=== PATIENT | male | born 1965 | race Caucasian/White ===

== ENCOUNTER 2020-09-03 12:52 | Outpatient (CLI) | payer BC, SELFPAY ==
--- NOTE | ~2020-09-03 | XR_ITS ---
EXAMINATION: XR chest 2V DATE: 09/03/2020 13:38 INDICATION: Shortness of breath. TECHNIQUE: Frontal and lateral views of the chest were obtained. COMPARISON: Chest single view 12/21/2015 FINDINGS: The chest demonstrates clear lungs without pneumonia, pleural effusion, or pneumothorax. Th e heart size is normal. There are suture anchors in right humeral head. IMPRESSION: 1. No acute cardiopulmonary disease. Reviewed, dictated and finalized at location B. HELPER
--- NOTE | 2020-09-04 09:23 | WPDSIXMINUTE ---
Six Minute Walk This is a 6 minutes walk for exertional dyspnea. Findings: The patient's resting room air oxygen saturation measured by pulse oximetry was 99% and her heart rate was 81 bpm. Patient ambulated for 305 meters and oxygen saturation remained 98 to 99%. Heart rate at the end of the study was 94 bpm. There are no prior studies for comparison.
== END 2020-09-03 12:53 | disposition home or self-care (01) ==
LOC: ANHPFT 12:53
PROVIDERS: PCP Nurse Practitioner; Visit Provider Nurse Practitioner
DX: Z86.16 Personal history of COVID-19 (principal)
CPT/HCPCS: 71046; 94618

== ENCOUNTER 2021-02-12 09:05 | Outpatient (CLI) | payer BC, SELFPAY ==
--- NOTE | ~2021-02-12 | US_ITS ---
EXAMINATION: US renal BI DATE: 02/12/2021 09:41 INDICATION: Stage 3B, chronic kidney disease. TECHNIQUE: Multiple ultrasound grayscale images of the kidneys were obtained. COMPARISON: None. FINDINGS: The right kidney measures 10.3 x 6.4 x 6.5 cm. The left kidney measures 10.9 x 5.7 x 5.3 cm. The kidn eys demonstrate normal echogenicity. There is no hydronephrosis in either kidney. No stones identifi ed. The bladder is normal with calculated prevoid volume of 141 mL and normal calculated postvoid res idual bladder volume of 19 mL. IMPRESSION: 1. Normal kidneys without hydronephrosis. 2. Normal bladder with postvoid residual bladder volume of 19 mL which is within normal limits. Reviewed, dictated and finalized at location A. IMPRESSION: 1. Normal kidneys without hydronephrosis. 2. Normal bladder with postvoid residual bladder volume of 19 mL which is withi n normal limits.
== END 2021-02-12 09:06 | disposition home or self-care (01) ==
PROVIDERS: PCP Family Medicine
DX: N18.32 Chronic kidney disease, stage 3b (principal); E11.29 Type 2 diabetes mellitus with other diabetic kidney complication; I10 Essential (primary) hypertension; E55.9 Vitamin D deficiency, unspecified
CPT/HCPCS: 76775

== ENCOUNTER 2021-02-25 11:22 | Outpatient (CLI) | payer BC, SELFPAY ==
--- NOTE | ~2021-02-25 | CT_ITS ---
EXAMINATION: CT diagnostic chest wo con DATE: 02/25/2021 16:32 INDICATION: Covid 19 infection TECHNIQUE: Computed tomography (CT) of the chest was performed without intravenous contrast. Automate d exposure control and iterative reconstruction technique were employed. Exam dose: 603.38 mGy-cm to nehal exam DLP. COMPARISON: 09/03/2020 PA and lateral chest FINDINGS: There are minimal patchy areas of groundglass infiltrate primarily involving the right uppe r lobe and to a lesser extent right lower lobe. There is discoid atelectasis or scarring at the anterior basilar segment of the right lower lobe and at the base of the lingula. No pulmonary consolidation or pulmonary mass lesion is noted. Normal heart size. No thoracic aortic aneurysm. No pericardial or pleural effusion. No hilar or mediastinal mass lesion or lymphadenopathy. Small sliding hiatal hernia. The the adrenal glands are normal. Included upper abdominal structures are unremarkable. No suspicious osteolytic or osteoblastic lesions are noted. IMPRESSION: Patchy minimal groundglass infiltrates primarily in the right upper lobe and to a lesser extent left lower lobe, likely postinfectious residual from Covid 19 infection Discoid atelectasis or scarring at the anterior basilar segment of the right lower lobe and the base of the lingula Small sliding hiatal hernia Reviewed, dictated and finalized at Location A. Reviewed, dictated and finalized at location B. IMPRESSION: Patchy minimal groundglass infiltrates primarily in the right uppe r lobe and to a lesser extent left lower lobe, likely postinfectious residual f rom Covid 19 infection Discoid atelectasis or scarring at the anterior basilar segment of the right lo wer lobe and the base of the lingula Small sliding hiatal hernia
[2021-02-25 17:02] LABS: Vitamin D 25 Hydroxy 82.2 ng/mL
[2021-02-27 10:52] LABS: Alpha-1-Antitrypsin, QN 152 mg/dL (83-199)
== END 2021-02-25 11:23 | disposition home or self-care (01) ==
LOC: ANHIMG 05-08 11:23
PROVIDERS: PCP Family Medicine; Visit Provider Nurse Practitioner
DX: Z09 Encounter for follow-up examination after completed treatment for conditions other than malignant neoplasm (principal); Z86.16 Personal history of COVID-19
CPT/HCPCS: 36415; 71250; 82103; 82104; 82306

== ENCOUNTER 2021-06-03 09:31 | Outpatient (CLI) | payer BC, SELFPAY ==
[2021-06-03 10:40] LABS: Iron 63 ug/dL (49-181)
[2021-06-03 10:42] LABS: Add Urine Microscopic? YES; Appearance Urine Clear (Clear); Bilirubin Urine Negative (Negative); Blood Urine Negative (Negative); Color Urine Yellow (Yellow); Glucose Urine UA 3+ mg/dL (Negative); Ketones Urine Negative (Negative); Leukocyte Esterase Ur Negative LEU/UL (NEGATIVE); Mucus Urine Rare /lpf; Nitrate Urine Negative (Negative); Protein Urine Negative (Negative); Specific Grav Ur 1.017 (1.001-1.035); Squamous Epithelial Cell Urine Rare /hpf (Few); Urobilinogen Urine Negative mg/dL (<2.0); WBC Urine 0-3 /hpf (0-3)
[2021-06-03 10:50] LABS: Complement C3 136 mg/dL (88-165); Parathyroid Intact 51.3 pg/mL (7.5-53.5)
[2021-06-03 10:53] LABS: Percent Iron Saturation 16 % (20-50)
[2021-06-03 11:08] LABS: Hepatitis B Surface Antigen Negative (Negative)
[2021-06-03 11:18] LABS: Creatinine Urine 90.3 mg/dL
[2021-06-03 11:21] LABS: MALB Creatinine Ratio 7.3 mg/g (0-30); Microalbumin Urine Random 6.6 mg/L (0-16.7)
[2021-06-03 11:26] LABS: Hepatitis B Surface Anti Res Negative; Hepatitis C Virus Antibody Negative (Negative)
[2021-06-03 12:06] LABS: Vitamin D 25 Hydroxy 73.2 ng/mL
[2021-06-06 00:50] LABS: Kappa\\Lambda Light Chains 1.31 (0.26-1.65); Lambda Light Chain 17.6 mg/L (5.7-26.3)
[2021-06-07 04:32] LABS: Alpha 1 Globulin 0.3 g/dL (0.2-0.3); Alpha 2 Globulin 0.9 g/dL (0.5-0.9); Beta 1 Globulin 0.5 g/dL (0.4-0.6); Gamma Globulin 0.9 g/dL (0.8-1.7)
[2021-06-07 06:42] LABS: Creatinine, Random Urine 82 mg/dL (20-320); Total Protein/Creatinine Ratio 98 mg/g creat (22-128)
== END 2021-06-03 09:32 | disposition home or self-care (01) ==
PROVIDERS: PCP Family Medicine
DX: I12.9 Hypertensive chronic kidney disease with stage 1 through stage 4 chronic kidney disease, or unspecified chronic kidney disease (principal); N18.32 Chronic kidney disease, stage 3b; E11.9 Type 2 diabetes mellitus without complications; L60.3 Nail dystrophy; K21.00 Gastro-esophageal reflux disease with esophagitis, without bleeding; E78.5 Hyperlipidemia, unspecified; G47.33 Obstructive sleep apnea (adult) (pediatric); E55.9 Vitamin D deficiency, unspecified
CPT/HCPCS: 36415; 81001; 82043; 82306; 82570; 83540; 83550; 83883; 83970; 84155; 84156; 84165; 84166; 86038; 86160; 86334; 86335; 86706; 86803; 87340

== ENCOUNTER 2021-06-07 08:43 | Outpatient (CLI) | payer BC, SELFPAY ==
[2021-06-07 10:44] LABS: Collection Time Urine 24 HOURS
[2021-06-07 10:54] LABS: Estimated Glomerular Filt Rate 52
[2021-06-07 11:13] LABS: Creatinine Urine 68.4 mg/dL; Patient Weight 222 Lbs
[2021-06-07 11:37] LABS: Total Protein Urine Random < 5 mg/dL
[2021-06-07 12:31] LABS: Creatinine 24 Hour Urine 1.6 gm/24 (1.0-2.0); Total Volume 24 Hour Urine 2400 ml
[2021-06-07 12:32] LABS: Total Protein Urine 24 Hr 120 mg/24hr (28-141); Total Volume 24 Hour Urine 2400 ml
[2021-06-07 12:33] LABS: Creatinine Clearance Urine 66.9 ml/min (75-125)
[2021-06-07 12:47] LABS: Specific Gravity Ur 1.017
== END 2021-06-07 08:44 | disposition home or self-care (01) ==
PROVIDERS: PCP Family Medicine
DX: N18.32 Chronic kidney disease, stage 3b (principal); E11.9 Type 2 diabetes mellitus without complications; L60.3 Nail dystrophy; K21.00 Gastro-esophageal reflux disease with esophagitis, without bleeding; E78.5 Hyperlipidemia, unspecified; G47.33 Obstructive sleep apnea (adult) (pediatric); E55.9 Vitamin D deficiency, unspecified
CPT/HCPCS: 36415; 81050; 82565; 82570; 82575; 84156

== ENCOUNTER 2021-07-15 13:36 | Outpatient (CLI) | payer BC, SELFPAY ==
--- NOTE | ~2021-07-15 | XR_ITS ---
EXAMINATION: XR lumbar spine min 4V DATE: 07/15/2021 13:57 INDICATION: Low back pain. TECHNIQUE: 5 views of lumbar spine were obtained. COMPARISON: None. FINDINGS: There is 4 degrees levocurvature of lumbar spine. Vertebral body heights are normal. There is mildly decreased disc height at L1-L2 and L2-L3. There are endplate osteophytes at all levels. The re is multilevel mild facet joint osteoarthrosis. There is moderate facet joint osteoarthritis on the right at L4-L5 and L5-S1. IMPRESSION: 1. Mild lumbar spondylosis. Reviewed, dictated and finalized at location A. 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 Mild lumbar spondylosis.
== END 2021-07-15 13:37 | disposition home or self-care (01) ==
LOC: ANHIMG 13:39
PROVIDERS: PCP Family Medicine; Visit Provider Family Medicine
DX: M54.50 Low back pain, unspecified (principal); M47.816 Spondylosis without myelopathy or radiculopathy, lumbar region
CPT/HCPCS: 72110

== ENCOUNTER 2021-07-24 13:41 | Outpatient (CLI) | payer BC, SELFPAY ==
--- NOTE | ~2021-07-24 | CT_ITS ---
EXAMINATION: CT abdomen pelvis wo/w con DATE: 07/24/2021 15:56 INDICATION: Dysuria, painful micturition TECHNIQUE: Computed tomography (CT) of the abdomen and pelvis was performed without intravenous contr ast. CT of the abdomen and pelvis was then performed with a total of 100 mL Omnipaque 350 intravenous contrast using a double-bolus technique for simultaneous opacification of the renal parenchyma and r enal collecting system. The dose-length product (DLP) was 1996.17 mGy-cm. Automated exposure control and iterative reconstruction technique were employed. COMPARISON: None FINDINGS: Minimal dependent atelectasis is present in the lung bases. The heart size is normal. The l iver, spleen, gallbladder, and adrenal glands are normal. There is fatty replacement of the pancreati c tail. The kidneys are unremarkable. No stones are identified in the kidneys, ureters, or bladder. T here is no hydronephrosis or hydroureter. No suspicious renal or urothelial lesion is identified. No pathologically enlarged abdominal or pelvic lymph nodes are identified. There is no free intraperiton eal gas or evidence of bowel obstruction. The appendix is normal. There is mild lumbar spondylosis. IMPRESSION: 1. No CT correlate for the patient's symptoms. Reviewed, dictated and finalized at location A. INSPECTOR
[2021-07-24 15:25] LABS: Estimated Glomerular Filt Rate 31
[2021-07-24 15:29] LABS: Estimated Glomerular Filt Rate 30
== END 2021-07-24 13:42 | disposition home or self-care (01) ==
PROVIDERS: PCP Nurse Practitioner
DX: R30.0 Dysuria (principal); R30.9 Painful micturition, unspecified
CPT/HCPCS: 74178; Q9967

== ENCOUNTER 2021-12-13 10:00 | Outpatient (CLI) | payer OTHER, MEDICAID, SELFPAY ==
--- NOTE | ~2021-12-13 | CT_ITS ---
EXAMINATION: CT chest high resolution wo tn DATE: 12/13/2021 10:27 INDICATION: Persistent shortness of breath after COVID 19 TECHNIQUE: Computed tomography (CT) of the chest was performed without intravenous contrast. The dose -length product (DLP) was 600.01 mGy-cm. Automated exposure control and iterative reconstruction tech [employer] were employed. COMPARISON: 02/25/2021 FINDINGS: The lungs are free of acute opacities. There is mild atelectasis of the right lower lobe. T here is no pleural effusion or pneumothorax. Calcified pulmonary nodules are consistent with old gran ulomatous disease. No pathologically enlarged thoracic lymph nodes are identified. The heart size is normal. There is mild thoracic spondylosis. IMPRESSION: 1. No CT correlate for the patient's symptoms. Reviewed, dictated and finalized at location A.
== END 2021-12-13 10:01 | disposition home or self-care (01) ==
PROVIDERS: PCP Family Medicine; Visit Provider Nurse Practitioner
DX: R06.02 Shortness of breath (principal); Z86.16 Personal history of COVID-19
CPT/HCPCS: 71250

== ENCOUNTER 2023-01-20 15:42 | Outpatient (CLI) | payer MEDICARE, MEDICAID, SELFPAY ==
[2023-01-20 16:59] LABS: Albumin Level 4.2 g/dL (3.5-5.1); Anion Gap 12 mmol/L (8-16); Blood Urea Nitrogen 52 mg/dL (9-20); Calcium 8.7 mg/dL (8.4-10.2); Carbon Dioxide 21 mmol/L (22-30); Chloride 105 mmol/L (98-107); Estimated Glomerular Filt Rate 35; Glucose 222 mg/dL (65-110); Phosphorus 3.5 mg/dL (2.5-4.5); Potassium 4.1 mmol/L (3.4-5.0); Sodium 138 mmol/L (137-145)
[2023-01-20 17:05] LABS: Creatinine Urine 50.9 mg/dL
[2023-01-20 17:05] LABS: Complement C3 125 mg/dL (88-165)
[2023-01-20 17:14] LABS: Sodium Urine Random 94 meq/L
[2023-01-20 17:56] LABS: Total Protein Urine Random < 5 mg/dL
[2023-01-20 17:57] LABS: Ur Ttl Prot Creatinine Ratio < 0.10 mg/mg (0-0.20)
[2023-01-23 12:40] LABS: Anti Glomerular Basement Memb <1.0 AI (<1.0)
[2023-01-23 12:55] LABS: ANCA Screen Negative (Negative)
[2023-01-23 21:14] LABS: Albumin 3.8 g/dL (3.8-4.8); Alpha 1 Globulin 0.3 g/dL (0.2-0.3); Alpha 2 Globulin 0.9 g/dL (0.5-0.9); Beta 1 Globulin 0.5 g/dL (0.4-0.6); Gamma Globulin 0.7 g/dL (0.8-1.7); Protein, Total 6.6 g/dL (6.1-8.1)
== END 2023-01-20 15:43 | disposition home or self-care (01) ==
LOC: ANHLAB 15:43
PROVIDERS: PCP Family Medicine; Visit Provider Internal Medicine Nephrology
DX: N18.32 Chronic kidney disease, stage 3b (principal)
CPT/HCPCS: 36415; 80069; 82570; 83520; 84155; 84156; 84165; 84300; 86036; 86038; 86160; 86225

== ENCOUNTER → 2023-01-25 07:55 | Outpatient (CLI) | payer OTHER, MEDICAID, SELFPAY ==
--- NOTE | ~2023-01-25 | US_ITS ---
US renal BI 01/25/2023 08:20 Procedure: Realtime transabdominal ultrasound of the kidneys and bladder. Indication: Chronic kidney disease stage III B. Diabetes. Comparison: No prior studies for comparison. Findings: Renal echotexture is normal bilaterally without hydronephrosis, contour deforming mass or r enal calculus. The right kidney measures 10.8 cm and left kidney measures 11.4 cm. Bladder within no rmal limits. Impression: 1: Unremarkable renal ultrasound. No stones, masses or hydronephrosis. Reviewed, dictated and finalized at location [] Impression: 1: Unremarkable renal ultrasound. No stones, masses or hydronephrosis.
== END ==
PROVIDERS: PCP Family Medicine; Visit Provider Internal Medicine Nephrology
DX: N18.32 Chronic kidney disease, stage 3b (principal)
CPT/HCPCS: 76775

== ENCOUNTER 2023-07-05 11:09 | Outpatient (CLI) | payer MEDICARE, MEDICAID, SELFPAY ==
[2023-07-05 11:47] LABS: Albumin Level 4.4 g/dL (3.5-5.1); Anion Gap 11 mmol/L (8-16); Blood Urea Nitrogen 43 mg/dL (9-20); Calcium 9.3 mg/dL (8.4-10.2); Carbon Dioxide 27 mmol/L (22-30); Chloride 102 mmol/L (98-107); Estimated Glomerular Filt Rate 33; Glucose 242 mg/dL (65-110); Phosphorus 4.2 mg/dL (2.5-4.5); Potassium 4.7 mmol/L (3.4-5.0); Sodium 140 mmol/L (137-145)
[2023-07-05 11:50] LABS: Creatinine Urine 99.3 mg/dL; Total Protein Urine Random 9 mg/dL; Ur Ttl Prot Creatinine Ratio 0.09 mg/mg (0-0.20)
[2023-07-05 11:59] LABS: Parathyroid Intact 128.8 pg/mL (7.5-53.5)
[2023-07-05 12:04] LABS: Vitamin D 25 Hydroxy 83.2 ng/mL
== END 2023-07-05 11:10 | disposition home or self-care (01) ==
LOC: ANHLAB 11:13
PROVIDERS: PCP Family Medicine; Visit Provider Internal Medicine Nephrology
DX: E11.22 Type 2 diabetes mellitus with diabetic chronic kidney disease (principal); E55.9 Vitamin D deficiency, unspecified; I12.9 Hypertensive chronic kidney disease with stage 1 through stage 4 chronic kidney disease, or unspecified chronic kidney disease; N25.81 Secondary hyperparathyroidism of renal origin; N18.32 Chronic kidney disease, stage 3b
CPT/HCPCS: 36415; 80069; 82306; 82570; 83970; 84156

== ENCOUNTER 2023-11-10 10:36 | Outpatient (CLI) | payer MEDICARE, MEDICAID, SELFPAY ==
[2023-11-10 12:08] LABS: Creatinine Urine 162.2 mg/dL; Total Protein Urine Random 10 mg/dL; Ur Ttl Prot Creatinine Ratio 0.06 mg/mg (0-0.20)
[2023-11-10 12:12] LABS: Albumin Level 4.6 g/dL (3.5-5.1); Anion Gap 9 mmol/L (4-12); Blood Urea Nitrogen 41 mg/dL (9-20); Calcium 9.8 mg/dL (8.4-10.2); Carbon Dioxide 21 mmol/L (22-30); Chloride 107 mmol/L (98-107); Estimated Glomerular Filt Rate 31; Glucose 137 mg/dL (65-110); Phosphorus 3.3 mg/dL (2.5-4.5); Potassium 4.4 mmol/L (3.4-5.0); Sodium 137 mmol/L (137-145)
[2023-11-10 12:22] LABS: Parathyroid Intact 64.7 pg/mL (7.5-53.5)
[2023-11-10 12:43] LABS: Vitamin D 25 Hydroxy 71.5 ng/mL
== END 2023-11-10 10:37 | disposition home or self-care (01) ==
LOC: ANHLAB 10:40
PROVIDERS: PCP Family Medicine; Visit Provider Internal Medicine Nephrology
DX: E55.9 Vitamin D deficiency, unspecified (principal); E11.22 Type 2 diabetes mellitus with diabetic chronic kidney disease; I12.9 Hypertensive chronic kidney disease with stage 1 through stage 4 chronic kidney disease, or unspecified chronic kidney disease; N18.32 Chronic kidney disease, stage 3b; N25.81 Secondary hyperparathyroidism of renal origin
CPT/HCPCS: 36415; 80069; 82306; 82570; 83970; 84156

== ENCOUNTER 2023-12-05 12:32 | Emergency (ER) | payer MEDICARE, SELFPAY ==
[2023-12-05 12:40] VITALS: BP 151/71; PULSE 88; RESP 16; TEMP 37.2; O2SAT 100
[2023-12-05] MEDS: KETOROLAC 30 MG/ML VIAL (*BKC) IM (13:17)
[2023-12-05] MEDS: ACETAMINOPHEN 325 MG TABLET 650 MG PO (13:17)
[2023-12-05] MEDS: predniSONE 20 MG TABLET 40 MG PO (13:17)
[2023-12-05] MEDS: LIDOCAINE 5% PATCH 1 PATCH TRANSDERM (13:41)
--- NOTE | 2023-12-05 18:09 | ED.BACK ---
HPI - Back Pain/Injury General Chief Complaint: Back Pain/Injury Stated Complaint: back pain Time Seen by Provider: 12/05/23 12:49 History of Present Illness HPI Narrative: patient states that he was shoveling mulch about a week ago and then had some low back pain, and over last few days and has started moving down his right lower back and down to his leg Related Data Home Medications Medication Instructions Recorded Confirmed aspirin 81 mg chewable tablet 81 mg PO DAILY 11/17/22 11/17/23 atorvastatin 40 mg tablet 40 mg PO QHS 11/17/22 11/17/23 diclofenac sodium 75 mg 75 mg PO BID PRN 11/17/22 11/17/23 tablet,delayed release empagliflozin 25 mg tablet 25 mg PO DAILY 11/17/22 11/17/23 (Jardiance) ergocalciferol (vitamin D2) 1,250 1,250 mcg PO WEEKLY 11/17/22 11/17/23 mcg (50,000 unit) capsule ezetimibe 10 mg tablet (Zetia) 10 mg PO DAILY 11/17/22 11/17/23 finerenone 20 mg tablet (Kerendia) 20 mg PO DAILY 11/17/22 11/17/23 glimepiride 2 mg tablet 2 mg PO QAM 11/17/22 11/17/23 hydrochlorothiazide 12.5 mg capsule 12.5 mg PO DAILY 11/17/22 11/17/23 insulin glargine 100 unit/mL 26 unit subcut BID 11/17/22 11/17/23 subcutaneous solution (Lantus U-100 Insulin) lisinopril 5 mg tablet 5 mg PO DAILY 11/17/22 11/17/23 pantoprazole 40 mg tablet,delayed 40 mg PO QAM 11/17/22 11/17/23 release pregabalin 50 mg capsule 50 mg PO BID 11/17/22 11/17/23 semaglutide 0.25 mg or 0.5 mg (2 2 mg subcut WEEKLY 11/17/23 11/17/23 mg/3 mL) subcutaneous pen injector (Ozempic) Allergies Allergy/AdvReac Type Severity Reaction Status Date / Time adhesive tape Allergy Other Verified 12/05/23 12:35 Review of Systems Review of Systems: All systems reviewed & are unremarkable except as noted in HPI and below PMFSH Past Medical History Medical History (Updated 12/05/23 @ 13:13 by Wendy Plaza MD) BPH (benign prostatic hyperplasia) CAD (coronary artery disease) CKD (chronic kidney disease) Diabetes Diabetic neuropathy DJD (degenerative joint disease), lumbar Erectile dysfunction GERD (gastroesophageal reflux disease) Hyperlipidemia Hypertension Obesity LATONIA (obstructive sleep apnea) Surgical History Surgical History (Updated 11/17/22 @ 11:41 by Twila Corona MD) H/O shoulder surgery History of ear, nose, and throat (ENT) surgery History of heart artery stent Family History Family History (Updated 11/17/22 @ 11:37 by Twila Corona MD) Mother Diabetes mellitus Hypertension Father Diabetes mellitus Heart disease Hypertension Social History Social History (Updated 11/17/23 @ 10:58 by Cris Jacinto MA) Smoking packs per day: 1 Smoking cigarettes per day: 20.0 Years smoked: 10 Smoking pack-years: 10.00 Smoking status: Former smoker Smoking end date: 08/16/94 Alcohol intake: current Alcohol use details: occasional use Substance use: never Do You Feel Safe in your Home?: Yes Lack of Transportation: No Lack of Food: Never True Current Housing: I Have Housing Concerned About Future Housing: No Difficulty Paying Gas/Electric Bills: No Difficulty Paying for Meds: No Currently Unemployed: No Education: High School Diploma/GED Difficulty w/ Childcare or Family Care: No Living arrangements: with family Gender identity (if verbalized by the patient): Male Sexual Orientation (if Verbalized by the Patient): Straight or Heterosexual Exam Narrative: EXAMINATION OF ORGAN SYSTEMS/BODY AREAS: Constitutional: Vital signs per nursing GENERAL:[No acute distress, non-toxic appearing.] HEAD: Normal with no signs of head trauma. EYES: EOMI, conjunctiva normal ENT: Hearing grossly intact LUNGS: Nonlabored breathing. HEART: [Regular rate and rhythm], normal bilateral DP pulses ABD: [Soft], [nontender to palpation] BACK: No midline tenderness; some tenderness R lower back EXT: Normal range of motion SKIN: [No rashes or lesions.] NEURO: [Alert and orie
== END 2023-12-05 13:40 | disposition home or self-care (01) ==
PROVIDERS: Emergency Provider Emergency Medicine; PCP Family Medicine
DX: M54.41 Lumbago with sciatica, right side (principal); M54.16 Radiculopathy, lumbar region; I25.10 Atherosclerotic heart disease of native coronary artery without angina pectoris; E11.22 Type 2 diabetes mellitus with diabetic chronic kidney disease; I12.9 Hypertensive chronic kidney disease with stage 1 through stage 4 chronic kidney disease, or unspecified chronic kidney disease; N18.9 Chronic kidney disease, unspecified; E11.40 Type 2 diabetes mellitus with diabetic neuropathy, unspecified; E78.5 Hyperlipidemia, unspecified; E66.9 Obesity, unspecified; Z68.34 Body mass index [BMI] 34.0-34.9, adult; G47.33 Obstructive sleep apnea (adult) (pediatric); N40.0 Benign prostatic hyperplasia without lower urinary tract symptoms; K21.9 Gastro-esophageal reflux disease without esophagitis; Z95.5 Presence of coronary angioplasty implant and graft; Z87.891 Personal history of nicotine dependence; Z79.85 Long-term (current) use of injectable non-insulin antidiabetic drugs; Z79.82 Long term (current) use of aspirin; Z79.84 Long term (current) use of oral hypoglycemic drugs; Z79.4 Long term (current) use of insulin
CPT/HCPCS: 96372; 99283; A9270; J1885; J7512

== ENCOUNTER 2023-12-13 09:53 | Emergency (ER) | payer MEDICARE, SELFPAY ==
--- NOTE | ~2023-12-13 | XR_ITS ---
EXAMINATION: XR ankle RT min 3V DATE: 12/13/2023 10:36 INDICATION: Right ankle injury. TECHNIQUE: 4 views of right ankle were obtained. COMPARISON: None. FINDINGS: Bone alignment is normal. No fracture. There is mild mid foot osteoarthritis. There is mild ankle joint osteoarthritis. There are enthesophytes at the posterior and plantar aspects of the calc aneal tuberosity. IMPRESSION: 1. Mild polyarticular osteoarthritis. Reviewed, dictated and finalized at location A.
--- NOTE | 2023-12-13 10:09 | ED.LOWEXIN ---
HPI - Extremity Injury (Lower) General Chief Complaint: Extremity Injury, Lower Stated Complaint: Pt injured rt foot Time Seen by Provider: 12/13/23 10:25 Source: patient and RN notes reviewed Mode of arrival: ambulatory Limitations: no limitations History of Present Illness HPI Narrative: 58-year-old male with history diabetes and chronic kidney disease presents with concern for right ankle injury. Reports on his twisted his ankle when stepping off a concrete curb. He reports lateral ankle pain, bruising to his toes without pain to the toes. MD complaint: ankle injury Related Data Home Medications Medication Instructions Recorded Confirmed aspirin 81 mg chewable tablet 81 mg PO DAILY 11/17/22 12/13/23 atorvastatin 40 mg tablet 40 mg PO QHS 11/17/22 12/13/23 empagliflozin 25 mg tablet 25 mg PO DAILY 11/17/22 12/13/23 (Jardiance) ergocalciferol (vitamin D2) 1,250 1,250 mcg PO WEEKLY 11/17/22 12/13/23 mcg (50,000 unit) capsule ezetimibe 10 mg tablet (Zetia) 10 mg PO DAILY 11/17/22 12/13/23 glimepiride 2 mg tablet 2 mg PO QAM 11/17/22 12/13/23 hydrochlorothiazide 12.5 mg capsule 12.5 mg PO DAILY 11/17/22 12/13/23 insulin glargine 100 unit/mL 26 unit subcut BID 11/17/22 12/13/23 subcutaneous solution (Lantus U-100 Insulin) lisinopril 5 mg tablet 5 mg PO DAILY 11/17/22 12/13/23 pantoprazole 40 mg tablet,delayed 40 mg PO QAM 11/17/22 12/13/23 release pregabalin 50 mg capsule 50 mg PO BID 11/17/22 12/13/23 semaglutide 0.25 mg or 0.5 mg (2 2 mg subcut WEEKLY 11/17/23 12/13/23 mg/3 mL) subcutaneous pen injector (Ozempic) blood-glucose meter,continuous 12/13/23 12/13/23 (Zipments G6 Molder Foam Rubber) blood-glucose sensor (Zipments G6 12/13/23 12/13/23 Sensor device) blood-glucose transmitter (Dexcom 12/13/23 12/13/23 G6 Transmitter device) cyclobenzaprine 10 mg tablet 10 mg PO PRN PRN Muscle Spasm 12/13/23 12/13/23 finerenone 20 mg tablet (Kerendia) 20 mg PO DAILY 12/13/23 12/13/23 gabapentin 300 mg capsule 600 mg PO TID 12/13/23 12/13/23 linagliptin 5 mg tablet (Tradjenta) 5 mg PO DAILY 12/13/23 12/13/23 Allergies Allergy/AdvReac Type Severity Reaction Status Date / Time adhesive tape AdvReac Mild Rash Verified 12/13/23 10:06 Review of Systems Review of Systems: CONSTITUTIONAL: Denies malaise, chills, sweats, or fever. SKIN: Denies rash or itching, open skin, laceration, abrasion, redness, warmth, swelling. MUSCULOSKELETAL: Reports right ankle pain NEUROLOGIC: Denies numbness, weakness All systems reviewed & are unremarkable except as noted in HPI and below PMFSH Past Medical History Medical History (Updated 12/13/23 @ 10:57 by Lisa Johnson NP) BPH (benign prostatic hyperplasia) CAD (coronary artery disease) CKD (chronic kidney disease) Diabetes Diabetic neuropathy DJD (degenerative joint disease), lumbar Erectile dysfunction GERD (gastroesophageal reflux disease) Hyperlipidemia Hypertension Obesity LATONIA (obstructive sleep apnea) Surgical History Surgical History (Updated 11/17/22 @ 11:41 by Twila Corona MD) H/O shoulder surgery History of ear, nose, and throat (ENT) surgery History of heart artery stent Family History Family History (Updated 11/17/22 @ 11:37 by Twila Corona MD) Mother Diabetes mellitus Hypertension Father Diabetes mellitus Heart disease Hypertension Social History Social History (Updated 11/17/23 @ 10:58 by Cris Jacinto MA) Smoking packs per day: 1 Smoking cigarettes per day: 20.0 Years smoked: 10 Smoking pack-years: 10.00 Smoking status: Former smoker Smoking end date: 08/16/94 Alcohol intake: current Alcohol use details: occasional use Substance use: never Do You Feel Safe in your Home?: Yes Lack of Transportation: No Lack of Food: Never True Current Housing: I Have Housing Concerned About Future Housing: No Difficulty Paying Gas/Electric Bills: No Difficulty Paying for Meds: No Efrem
[2023-12-13 10:17] VITALS: BP 117/71; PULSE 58; RESP 12; TEMP 36.3; O2SAT 100
== END 2023-12-13 10:58 | disposition home or self-care (01) ==
PROVIDERS: Emergency Provider Nurse Practitioner; PCP Family Medicine
DX: S93.401A Sprain of unspecified ligament of right ankle, initial encounter (principal); S96.911A Strain of unspecified muscle and tendon at ankle and foot level, right foot, initial encounter; X50.9XXA Other and unspecified overexertion or strenuous movements or postures, initial encounter; N40.0 Benign prostatic hyperplasia without lower urinary tract symptoms; I25.10 Atherosclerotic heart disease of native coronary artery without angina pectoris; I13.10 Hypertensive heart and chronic kidney disease without heart failure, with stage 1 through stage 4 chronic kidney disease, or unspecified chronic kidney disease; E11.22 Type 2 diabetes mellitus with diabetic chronic kidney disease; N18.9 Chronic kidney disease, unspecified; Z79.4 Long term (current) use of insulin; Z79.84 Long term (current) use of oral hypoglycemic drugs; E11.40 Type 2 diabetes mellitus with diabetic neuropathy, unspecified; K21.9 Gastro-esophageal reflux disease without esophagitis; E78.5 Hyperlipidemia, unspecified; E66.9 Obesity, unspecified; Z68.35 Body mass index [BMI] 35.0-35.9, adult; Z95.5 Presence of coronary angioplasty implant and graft; Z87.891 Personal history of nicotine dependence; Z79.82 Long term (current) use of aspirin
CPT/HCPCS: 73610; 99213; G0463

== ENCOUNTER 2023-12-18 09:43 | Outpatient (CLI) | payer MEDICARE, SELFPAY ==
--- NOTE | ~2023-12-18 | MR_ITS ---
EXAMINATION: MR lumbar spine wo con DATE: 12/18/2023 10:29 INDICATION: Radiculopathy, lumbar region. Low back pain. Right leg pain. TECHNIQUE: Magnetic resonance imaging (MRI) of the lumbar spine was performed without intravenous con trast. Sequences included sagittal T2-weighted FSE, sagittal T2-weighted FS FSE, sagittal T1-weighted FSE, and axial T2-weighted FSE. COMPARISON: Lumbar spine radiographs 07/15/2021 FINDINGS: There is 7 degrees levocurvature of lumbar spine. Vertebral body heights are normal. There is severely decreased disc height at L2-L3 with endplate remodeling. The distal spinal cord signal in tensity is normal. The conus medullaris is at L1. The following disc levels are specifically discusse d: L1-L2: The disc is bulging. There is mild bilateral facet joint osteoarthritis. There is mild bilater al neural foraminal stenosis. There is mild central canal stenosis. L2-L3: The disc is bulging and has an annular fissure. There is mild bilateral facet joint osteoarthr itis. There is moderate bilateral neural foraminal stenosis. There is mild central canal stenosis. L3-L4: The disc is bulging and has an annular fissure. There is moderate right and severe left facet joint osteoarthritis. There is mild right and moderate left neural foraminal stenosis. There is mild central canal stenosis. L4-L5: The disc is bulging and has an annular fissure. There is moderate right and mild left facet jannet int osteoarthritis. There is mild bilateral neural foraminal stenosis. There is mild central canal st enosis. L5-S1: There is a central protrusion. There is mild bilateral facet joint osteoarthritis. There is no neural foraminal stenosis. There is mild central canal stenosis. IMPRESSION: 1. Severe lumbar spondylosis, worst at L2-L3. Reviewed, dictated and finalized at location A.
== END 2023-12-18 09:44 ==
LOC: MICIMG 09:45
PROVIDERS: PCP Neurological Surgery; Visit Provider Neurological Surgery
DX: M47.26 Other spondylosis with radiculopathy, lumbar region (principal)
CPT/HCPCS: 72148

== ENCOUNTER 2024-01-13 15:06 | Outpatient (CLI) | payer MEDICARE, SELFPAY ==
--- NOTE | ~2024-01-13 | XR_ITS ---
EXAM: XR lumbar spine min 4V DATE: 01/13/2024 15:34 HISTORY: M54.16 - Radiculopathy, lumbar region . COMPARISON: 07/15/2021; MR L-spine 12/18/2023. FINDINGS: 5 nonrib-bearing lumbar-type vertebral bodies. No pars defect. Pedicles intact. 2-3 mm ret rolistheses at L1-2 through L3-4 stable in flexion and extension. 3 mm retrolisthesis at L5-S1 that r educes in flexion. Multilevel disc space narrowing and marginal osteophytosis, severe at L2-3. Verteb ral body heights preserved. Mild multilevel facet hypertrophy and sclerosis. No fracture or dislocati on. IMPRESSION: Mild grade 1 dynamic listhesis at L5-S1. Multilevel stable grade 1 retrolistheses at L1-2 through L3-4. Severe degenerative disc disease at L2-3. Mild multilevel lumbar facet arthropathy. Reviewed, dictated and finalized at location K.
--- NOTE | ~2024-01-13 | XR_ITS ---
EXAM: XR hip RT min 2V DATE: 01/13/2024 15:34 HISTORY: M25.551 - Pain in right hip . COMPARISON: None available. FINDINGS: Normal mineralization. No fracture or dislocation. No lytic or blastic lesion. Lumbar dege nerative disc disease. Mild superior hip joint space narrowing and osteophytosis. Amorphous calcifica tion over the greater trochanter. No erosion or periosteal change. Soft tissues within normal limits. IMPRESSION: Mild right hip osteoarthritis. Mild calcific tendinitis at the greater trochanter. Reviewed, dictated and finalized at location K. IMPRESSION: Mild right hip osteoarthritis. Mild calcific tendinitis at the grea ter trochanter.
== END 2024-01-13 15:07 ==
PROVIDERS: PCP Family Medicine; Visit Provider Neurological Surgery
DX: M16.11 Unilateral primary osteoarthritis, right hip (principal); M75.31 Calcific tendinitis of right shoulder; M43.17 Spondylolisthesis, lumbosacral region; M43.16 Spondylolisthesis, lumbar region; M51.36 Other intervertebral disc degeneration, lumbar region; M47.896 Other spondylosis, lumbar region
CPT/HCPCS: 72110; 73502

== ENCOUNTER 2024-03-08 14:22 | Outpatient (CLI) | payer MEDICARE, SELFPAY ==
[2024-03-08 15:30] LABS: Albumin Level 4.3 g/dL (3.5-5.1); Anion Gap 11 mmol/L (4-12); Blood Urea Nitrogen 30 mg/dL (9-20); Calcium 9.6 mg/dL (8.4-10.2); Carbon Dioxide 25 mmol/L (22-30); Chloride 101 mmol/L (98-107); Estimated Glomerular Filt Rate 37; Glucose 186 mg/dL (65-110); Phosphorus 3.6 mg/dL (2.5-4.5); Potassium 4.5 mmol/L (3.4-5.0); Sodium 137 mmol/L (137-145)
[2024-03-08 15:47] LABS: Creatinine Urine 74.2 mg/dL
[2024-03-08 16:13] LABS: Total Protein Urine Random < 5 mg/dL; Ur Ttl Prot Creatinine Ratio < 0.07 mg/mg (0-0.20)
== END 2024-03-08 14:23 | disposition home or self-care (01) ==
LOC: ANHLAB 14:24
PROVIDERS: PCP Family Medicine; Visit Provider Internal Medicine Nephrology
DX: E11.22 Type 2 diabetes mellitus with diabetic chronic kidney disease (principal); I12.9 Hypertensive chronic kidney disease with stage 1 through stage 4 chronic kidney disease, or unspecified chronic kidney disease; N18.32 Chronic kidney disease, stage 3b
CPT/HCPCS: 36415; 80069; 82570; 84156

== ENCOUNTER 2024-07-20 12:03 | Outpatient (CLI) | payer MEDICARE, SELFPAY ==
[2024-07-20 12:46] LABS: Albumin Level 4.4 g/dL (3.5-5.1); Anion Gap 7 mmol/L (4-12); Blood Urea Nitrogen 31 mg/dL (9-20); Calcium 9.6 mg/dL (8.4-10.2); Carbon Dioxide 25 mmol/L (22-30); Chloride 105 mmol/L (98-107); Estimated Glomerular Filt Rate 36; Glucose 220 mg/dL (65-110); Phosphorus 3.7 mg/dL (2.5-4.5); Potassium 4.3 mmol/L (3.4-5.0); Sodium 137 mmol/L (137-145)
[2024-07-20 12:53] LABS: Total Protein Urine Random 6 mg/dL; Ur Ttl Prot Creatinine Ratio 0.09 mg/mg (0-0.20)
[2024-07-20 12:59] LABS: Parathyroid Intact 30.7 pg/mL (14.5-75.2)
== END 2024-07-20 12:04 | disposition home or self-care (01) ==
PROVIDERS: PCP Family Medicine; Visit Provider Internal Medicine Nephrology
DX: E11.22 Type 2 diabetes mellitus with diabetic chronic kidney disease (principal); I12.9 Hypertensive chronic kidney disease with stage 1 through stage 4 chronic kidney disease, or unspecified chronic kidney disease; N18.32 Chronic kidney disease, stage 3b; N25.81 Secondary hyperparathyroidism of renal origin; E55.9 Vitamin D deficiency, unspecified
CPT/HCPCS: 36415; 80069; 82306; 82570; 83970; 84156

== ENCOUNTER 2024-12-23 08:10 | Outpatient (CLI) | payer MEDICARE, SELFPAY ==
--- OUTSIDE RECORDS SUMMARY | 2024-12-23 08:14 | XMS_ITS | Clinical Summary ---
Author Organization [facility] [employer] Address [address] [place] [address] Care Team Providers Care Assistant Professor In Family Studies Name Role Phone Shawn Nelson MD Primary Care Provider + Source Comments [facility],non-owned Affiliates and Associated Physician Practices is amultiple site organization consisting of ambulatory clinics and hospital sitesin [place], [place], [place] and [place]. This disclosure is being madepursuant to the Care Everywhere program and may not contain all information available regarding this patient. Last updated 18.[facility] [employer] Allergies No known active allergies Medications * Be aware that medications may not be up to date on this document. Alwaysverify current medications with the patient. amitriptyline (ELAVIL) 25 MG tablet Take 25 mg by mouth at bedtime Active nabumetone (RELAFEN) 500 MG tablet Take 500 mg by mouth 2 times daily Active lisinopril-hydr oCHLOROthiazide (PRINZIDE; ZESTORETIC) 10-12.5 MG tablet Take 1 tablet by mouth once daily Active diphenhydrAMINE (BENADRYL ALLERGY) 25 MG tablet Take by mouth 2 times daily Active aspirin (ASPIRIN) 81 MG tablet Take 81 mg by mouth once daily Active potassium gluconate (EQL POTASSIUM GLUCONATE) 595 (99 K) MG tablet Take by mouth once daily Active Insulin Glargine-Lixise natide (SOLIQUA SC) Active omeprazole (PRILOSEC) 40 MG capsule Take 40 mg by mouth daily before breakfast Active PRAVASTATIN SODIUM PO Active glimepiride (AMARYL) 2 MG tablet Take 2 mg by mouth daily with breakfast Active Social History Tobacco Use Types Packs/Day Years Used Date Smoking Tobacco: Former Smokeless Tobacco: Never Alcohol Use Standard Drinks/Week Comments Yes 0 (1 standard drink = 0.6 oz pur e alcohol) AUDIT-C Answer Date Recorded Frequency of Alcohol Consumption Monthly or less 03/28/2019 Average Number of Drinks Not on file 019 Frequency of Binge Drinking Not on file 03/16 Sex and Gender Information Value Date Recorded Sex Assigned at Not on file 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 Gender Identity Not on file Sexual Orientation Not on file Last Filed Vital Signs Vital Sign Reading Time Taken Comments Blood Pressure 110/78 03/28/2019 10:34 AM CDT Pulse 77 03/28/2019 10:34 AM CDT Temperature 36.7 C (98 F) 03/28/2019 10:34 AM CDT Respiratory Rate 16 03/28/2019 10:3 4 AM CDT Oxygen Saturation 98% 03/28/2019 10: 34 AM CDT Inhaled Oxygen Concentration - - Weight 101.1 kg (222 lb 12.8 oz) 2018 10:34 AM CDT Height 175.3 cm (5' 9 ) 03/28/2019 10:3 4 AM CDT Body Mass Index 32.9 03/28/2019 10:34 AM CDT Plan of Treatment Health Maintenance Due Date Last Done Comments COLOGUARD (AGES 45-75) - COL ON CA SCREENING 1965 COLON MONITORING 1965 COLONOSCOPY - COLON CA SCREENING 1965 CT COLONOGRAPHY - COLON CA SCREENING 1965 Colorectal Cancer Screening 1965 FIT - COLON CA SCREENING 1965 FLEX SIG - COLON CA SCREENING 1965 HIV SCREENING 1980 HEPATITIS C SCREENING 04/03/1983 DTAP/TDAP/TD VACCINES (1 - Tdap) 1984 HEPATITIS B VACCINE (1 of 3 - 19+ 3-dose series) 1984 PNEUMOCOCCAL VACCINE 50+ (1 of 1 - PCV) 2015 ZOSTER VACCINE (1 of 2) 2015 SCREENING FOR DIABETES 03/28/2019 COVID-19 VACCINE ( - 2023-2 5 season) 2024 DEPRESSION SCREENING 08/16/2024 INFLUENZA VACCINE (Season Ended) 2025 HIB VACCINE Aged Out No longer eligi ble based on patient's age to complete this topic HPV VACCINE Aged Out No longer eligi ble based on patient's age to complete this topic MENINGOCOCCAL (Group B) VACC INE SHARED DECISION-MAKING Aged Out No longer eligibl e based on patient's age to complete this topic MENINGOCOCCAL GROUPS A/C/Y/W VACCINE Aged Out No longer eligible b ased on patient's age to complete this topic Insurance [facility] Address: [facility] [id number] [place] [address] Care Teams Assistant Professor In Family Studies Relationship Specialty Start Date End Date Shawn Nelson MD PCP - General Internal Medicine 03/23/18
--- OUTSIDE RECORDS SUMMARY | 2024-12-23 08:14 | XMS_ITS | Clinical Summary ---
Author Organization [facility] Address [facility] [place] [address] Care Team Providers Care Electromechanical Assembler Name Role Phone Mushtaq Cox MD Primary Care Provider [phone] Allergies No known active allergies Medications glimepiride 2 MG tablet Take 2 mg by mouth every morning before breakfast. 08/01/2019 Active amitriptyline 25 MG tablet Take 25 mg by mouth nightly at bedtime. 08/01/2019 Active baclofen 10 MG tablet Take 10 mg by mouth every 12 (twelve) hours as needed (spasms). 08/15/2019 Active diphenhydrAMINE 25 MG tablet Take 50 mg by mouth nightly at bedtime. Active nabumetone 500 MG tablet Take 1,000 mg by mouth daily. 08/01/2019 Active BD PEN NEEDLE KIERSTEN U/F 32G X 4 MM Misc USE QD 11/30/2019 Active VICTOZA 18 MG/3ML injection Inject 1.8 mg into the skin daily. 12/01/2019 Active DOK 100 MG capsule Take 100 mg by mouth every 12 (twelve) hours as needed for Constipation. 11/22/2019 Active aspirin EC (ASPIRIN EC) 81 MG tablet Take 81 mg by mouth nightly at bedtime. Active atorvastatin 10 MG tablet Take 10 mg by mouth nightly at bedtime. Active benzonatate 200 MG capsule Take 200 mg by mouth every 8 (eight) hours as needed for Cough. Active empagliflozin (JARDIANCE) 25 MG tablet Take 25 mg by mouth daily. Active vitamin D2, ergocalciferol, 50368 UNITS capsule Take 50,000 Units by mouth every 7 days. Takes on Mondays Active hydroCHLOROthia zide 12.5 MG tablet Take 12.5 mg by mouth every morning. Active lisinopril 10 MG tablet Take 10 mg by mouth daily. Active omeprazole 20 MG capsule Take 20 mg by mouth nightly at bedtime. Active polyethylene glycol packet Take 17 g by mouth daily as needed for Constipation. Dissolve powder in 240 mL water Active Potassium Gluconate 595 (99 K) MG Tab Take 595 mg by mouth nightly at bedtime. Active HYDROcodone-marylin taminophen 5-325 MG tablet Take 1 tablet by mouth daily. Active Active Problems Problem Noted Date Diagnosed Date COVID-19 04/08/2020 Nontraumatic complete tear of right rotator cuff 12/14/2019 Diabetes ([facility]) 09/07/2019 Traumatic complete tear of r ight rotator cuff, initial encounter 09/07/2019 Right shoulder pain, unspecified chronicity 08/17 Family History Medical History Relation Comments No Known Problems Father No Known Problems Mother Relation Status Comments Father Mother Social History Tobacco Use Types Packs/Day Years Used Date Smoking Tobacco: Never Smokeless Tobacco: Never Alcohol Use Standard Drinks/Week Comments Yes 0 (1 standard drink = 0.6 oz pur e alcohol) social Sex and Gender Information Value Date Recorded Sex Assigned at Male 04/09/2020 1:38 PM CDT Legal Sex Male 10:41 PM 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 Gender Identity Male 04/09/2020 1:38 PM CDT Sexual Orientation Straight 04/09/2020 1: 38 PM CDT Last Filed Vital Signs Vital Sign Reading Time Taken Comments Blood Pressure 112/70 04/12/2020 9:58 AM CDT Pulse 52 04/12/2020 9:58 AM CDT Temperature 36.7 C (98.1 F) 04/12/2020 9:58 AM CDT Respiratory Rate 20 04/12/2020 9:58 AM CDT Oxygen Saturation 95% 04/12/2020 9:58 AM CDT Inhaled Oxygen Concentration - - Weight 94.8 kg (208 lb 15.9 oz) 04/10/2020 3:18 AM CDT Height 167.6 cm (5' 6 ) 04/08/2020 12:1 1 PM CDT Body Mass Index 33.73 04/08/2020 12:11 PM CDT Plan of Treatment Health Maintenance Due Date Last Done Comments Colorectal Cancer Screening Colonoscopy (10 Years) 1965 Kidney Health Evaluation 1965 Lipid Panel 1965 Annual Physical 1968 Diabetes: Retinopathy Eye Exam 1983 Hepatitis C 1983 DTaP, Tdap and Td Vaccines ( 1 - Tdap) 1984 Pneumococcal Vaccine: 50+ Years (1 of 2 - PCV) 1984 Zoster Vaccines (1 of 2) 2015 Hemoglobin A1C 06/07/2020 12/07/2019, 10/17/2019, 09/07/2019 COVID-19 Vaccine (1 - 2023-2 5 season) 2024 Meningococcal B Vaccine Aged Out No l onger eligible based on patient's age to complete this topic Meningococcal Vaccine Aged Out No christiane ajay eligible based on patient's age to complete this topic RSV Immunizations Under 20 Months Aged Out No longer eligible b ased on patient's age to complete this topic Procedures Procedure Name Priority Date/Time Associated Diagnosis Comments HEMOGLOBIN, GLYCOSYLATED Routine 12/07/2019 2:35 PM CDT Type 2 diabetes mellitus without complication, unspecified whether residential insulin use from Last 3 Months or Most Recently Relevant to Health Maintenance Results * (ABNORMAL) HEMOGLOBIN, GLYCOSYLATED (12/07/2019 2:35 PM CDT) HGB A1C 7.7(H) <5.7 % 12/08/2019 12:25 PM CDT [facility] Comment: ADA GUIDELINES 2010 5.7 TO 6.4% INCREASED RISK OF DIABETES > OR = 6.5% CONSISTENT WITH DIABETES ESTIMATED AVG GLUCOSE 174 mg/dL 12/08/2019 12:25 PM CDT [facility] 12/07/2019 2:35 PM CDT us Power Mayberry MD LABORATORY Final Result [facility] [address] [place] [address], [place] [phone] from Last 3 Months or Most Recently Relevant to Health Maintenance Insurance [facility] Advance Directives * Full Code (Latest Code Status on File) Date Activated Date Inactivated Comments 04/08/2020 10:33 PM 04/12/2020 6:08 PM Care Teams Electromechanical Assembler Relationship Specialty Start Date End Date Mushtaq Cox MD PCP - General FAMILY PRACTICE 02/12/21
--- OUTSIDE RECORDS SUMMARY | 2024-12-23 08:14 | XMS_ITS | Referral Summary ---
Author Organization [facility] Address [address] [place] [id number] Care Team Providers Care Escort Car Driver Name Role Phone Mushtaq Cox MD Primary Care Provider [phone] Deacon Gates MD Unavailable [phone] Twila Corona MD Unavailable [phone] Encounters Date Type Department Care Team Description 12/18/2024 11:30 AM CDT - 12/18/2024 11:59 PM CDT Hospital Encounter [facility] [address] [place] [id number] S/P lumbar spinal fusion; Lumbar spine pain Discharge Disposition: Discharge to home or self care 12/18/2024 11:20 AM CDT Office Visit [facility] [address] [place] [address] 2nd [address] [place] [address] Jordan Faulkner MD S/P lumbar spinal fusion (Primary Dx) 12/06/2024 Orders Only [facility] [address] [place] [address] 12th [place] [address] [place] [address] Jordan Faulkner MD S/P lumbar spinal fusion (Primary Dx); Lumbar spine pain from Last 3 Months Allergies Active Allergy Reactions Criticality Noted Date Comments Adhesive Other (See comments) Low 01/19/2020 skin comes off skin comes off Medications pen needle, diabetic (BD Ultra-Fine Dali Pen Needle) 32 gauge x 5/32 needle 04/16/20 20 Active ezetimibe (ZETIA) 10 mg tablet Take 1 tablet (10 mg total) by mouth every morning 08/16/18 70 Active atorvastatin (LIPITOR) 40 mg tablet Take 1 tablet (40 mg total) by mouth every morning 03/10/20 21 Active aspirin 81 mg enteric coated tablet Take 1 tablet (81 mg total) by mouth every morning Active finerenone (Kerendia) 20 mg tablet Take 20 mg by mouth every morning Active empagliflozin (JARDIANCE) 25 mg tablet Take 1 tablet (25 mg total) by mouth every morning Active glimepiride (AMARYL) 2 mg tabletIndicatio ns:type 2 diabetes mellitus Take 1 tablet (2 mg total) by mouth daily before breakfast Active lisinopriL (PRINIVIL,ZESTR IL) 5 mg tablet Take 1 tablet (5 mg total) by mouth every morning Active famotidine (PEPCID) 20 mg tablet Take 1 tablet (20 mg total) by mouth every morning Active rivaroxaban (Xarelto) 2.5 mg tablet Take 1 tablet (2.5 mg total) by mouth 2 (two) times a day Active linaGLIPtin (TRADJENTA) 5 mg tabletIndicatio ns:type 2 diabetes mellitus Take 1 tablet (5 mg total) by mouth every morning Active pantoprazole DR (PROTONIX) 40 mg EC tablet Take 1 tablet (40 mg total) by mouth nightly Active icosapent ethyL (VASCEPA) 1 gram capsule Take 2 capsules (2 g total) by mouth 2 (two) times a day Active calcitRIOL (ROCALTROL) 0.25 mcg capsule Take 1 capsule (0.25 mcg total) by mouth 3 (three) times a week Wednesday, Wednesday, Wednesday Active insulin glargine 100 unit/mL (3 mL) pen for injection Inject 32 Units under the skin 2 (two) times a day Active semaglutide (Ozempic) 2 mg/dose (8 mg/3 mL) pen injector injectionIndica tions:type 2 diabetes mellitus Inject 2 mg under the skin every 7 days Takes on Saturdays As of 05/21/24 last dose was 05/20/24 Active mupirocin (BACTROBAN) 2 % ointment Place small amount of ointment in each nostril with a q-tip twice daily for 5 days prior to surgery 22 g 05/31/20 24 Active chlorhexidine (HIBICLENS) 4 % external liquidIndicatio ns:Skin Disinfection Use soap daily with showering for 5 days prior to surgery 946 mL 05/31/20 24 Active oxyCODONE (ROXICODONE) 10 mg tabletIndicatio ns:Pain Take 1 tablet (10 mg total) by mouth every 4 (four) hours as needed for pain 40 tablet 06/18/20 24 Active acetaminophen (TYLENOL) 500 mg tablet Take 2 tablets (1,000 mg total) by mouth every 8 (eight) hours as needed for pain 60 tablet 06/18/20 24 Active oxyCODONE (ROXICODONE) 10 mg tabletIndicatio ns:Pain Take 1 tablet (10 mg total) by mouth every 4 (four) hours as needed for pain 40 tablet 06/18/20 24 Active traMADoL (ULTRAM) 50 mg tabletIndicatio ns:Lumbar radiculopathy,L umbar spine pain Take 1 tablet (50 mg total) by mouth 3 (three) times a day as needed for pain for up to 7 days 21 tablet 07/03/20 24 Active gabapentin (NEURONTIN) 300 mg capsule Take 1 capsule (300 mg total) by mouth 3 (three) times a day 90 capsule 1 10/17/19 25 026 Active tiZANidine (ZANAFLEX) 4 mg tablet TAKE 1 TABLET (4 MG TOTAL) BY MOUTH EVERY 6 (SIX) HOURS NEEDED FOR MUSCLE SPASMS 120 tablet 1 12/01/19 25 025 Active meloxicam (MOBIC) 15 mg tabletIndicatio ns:Lumbar radiculopathy,C hronic SI joint pain Take 1 tablet (15 mg total) by mouth daily 30 tablet 2 12/09/19 25 026 Active ergocalciferol (VITAMIN D) 50,000 unit capsule 10/19/19 25 Active hydroCHLOROthia zide 12.5 mg tablet 09/29/19 25 Active tiZANidine (ZANAFLEX) 4 mg tablet Take 1 tablet (4 mg total) by mouth every 6 (six) hours as needed for muscle spasms 120 tablet 1 10/17/19 25 04/17/2 025 Discontinued meloxicam (MOBIC) 15 mg tabletIndicatio ns:Lumbar radiculopathy,C hronic SI joint pain Take 1 tablet (15 mg total) by mouth daily 30 tablet 1 10/17/19 25 025 Discontinued(Re order) Active Problems Problem Noted Date Diagnosed Date S/P lumbar spinal fusion 06/16/2024 Spinal stenosis of lumbar region 05/16/2024 Facet arthropathy 05/16/2024 Effusion of lumbar facet joint 05/16/2024 Leukocytosis 05/01/2024 Coronary atherosclerosis 03/06/2024 Bradycardia, unspecified 01/27/2024 Claustrophobia 12/16/2023 Roblero's neuroma of left foot 08/29/2023 Erectile dysfunction 10/28/2022 Bronchitis 07/29/2022 Fatigue 06/11/2022 Chest pain 05/13/2022 Contact dermatitis due to poison charley 04/23/2022 Allergic contact dermatitis 04/13/2022 Folliculitis 01/05/2022 Cardiovascular stress test abnormal 09/18/2021 Degeneration of lumbar intervertebral disc 07/21 Chronic low back pain 07/13/2021 Benign prostatic hyperplasia without urinary obs truction 07/13/2021 LATONIA (obstructive sleep apnea) 05/21/2021 Benign essential hypertension 02/26/2021 Diabetic nephropathy associa daria with type 2 diabetes mellitus 02/26/2021 Injury of foot 02/24/2021 Diastolic dysfunction 01/22/2021 History of severe acute resp iratory syndrome coronavirus 2 (SARS-CoV-2) disease 11/28/2020 Dystrophia unguium 11/25/2020 Diabetic peripheral neuropathy 10/01/2020 Hyponatremia 09/26/2020 Iron deficiency 09/26/2020 Overview (07/03/2024): neg b12 Neuropathy 09/25/2020 Arteriosclerosis of coronary artery 07/16/2020 Schatzki's ring 07/02/2020 Hiatal hernia 07/02/2020 Dyspnea on exertion 06/25/2020 COVID-19 04/08/2020 Gastro-esophageal reflux disease without esophag itis 03/28/2020 Stage 3 chronic kidney disease 03/28/2020 Vitamin D deficiency 03/28/2020 Chronic idiopathic constipation 03/20/2020 Hyperlipidemia 03/20/2020 Hypertensive disorder 03/20/2020 Obesity 03/20/2020 Type 2 diabetes mellitus without complication Complete rupture of rotator cuff 01/15/2020 Overview (01/15/2020): Added automatically from request for surgery [id number] Nontraumatic complete tear of right rotator cuff 12/14/2019 Diabetes mellitus 09/07/2019 Overview (03/06/2024): neg uacr Right shoulder pain 09/07/2019 Traumatic complete tear of right rotator cuff Diabetes mellitus 09/07/2019 Overview (07/03/2024): neg [facility] Immunizations Immunization Administration Dates Next Due Influenza, Quadrivalent, Danica l Culture-based MDCK, Preservative Free, Antibiotic Free, Intramuscular 06/20/2020 Influenza, Quadrivalent, Spl it, Intramuscular 06/20/2020 Influenza, Quadrivalent, Spl it, Preservative Free, Intramuscular 04/26/2023,05/12/2022,07/07/2021,06/01 Tdap 04/10/2024,10/31/2014 Social History Tobacco Use Types Packs/Day Years Used Date Smoking Tobacco: Former Cigarettes 1 9.4 1 986 - 01/18/1995 Smokeless Tobacco: Never Tobacco Cessation:Counseling Given: Not Answered Alcohol Use Standard Drinks/Week Comments Yes 1 (1 standard drink = 0.6 oz pur e alcohol) AUDIT-C Answer Date Recorded Q1: How often do you have a drink containing alc ohol? 2-4 times a month 05/24/2024 Q2: How many drinks containi ng alcohol do you have on a typical day when you are drinking? 1 or 2 05/24/2024 Q3: How often do you have si x or more drinks on one occasion? Never 05/24/2024 Personal Safety Answer Date Recorded Have you ever been in or are you currently in a harmful physical or emotional relationship or is someone making you feel afraid or unsafe? Denies 06/16/2024 Sex and Gender Information Value Date Recorded Sex Assigned at Not on file Legal Sex Male 10:28 PM LOCUM TENENS PSYCHIATRIST Gender Identity Male 05/21/2021 1:05 PM CDT Sexual Orientation Straight 04/10/2024 1: 13 PM CDT Last Filed Vital Signs Vital Sign Reading Time Taken Comments Blood Pressure 123/55 06/18/2024 7:55 AM LOCUM TENENS PSYCHIATRIST Pulse 79 06/18/2024 7:55 AM LOCUM TENENS PSYCHIATRIST Temperature 36.8 C (98.3 F) 06/18/2024 7:55 AM LOCUM TENENS PSYCHIATRIST Respiratory Rate 16 06/18/2024 7:55 AM LOCUM TENENS PSYCHIATRIST Oxygen Saturation 99% 06/18/2024 7:55 AM LOCUM TENENS PSYCHIATRIST Inhaled Oxygen Concentration - - Weight 93.3 kg (205 lb 11 oz) 06/16/2024 9:53 AM CDT Height 177.8 cm (5' 10 ) 06/16/2024 9:53 AM CDT Body Mass Index 29.51 06/16/2024 9:53 AM CDT Plan of Treatment Not on file Medical Devices Implanted Type Area Coal Briquette Machine Operator Device Identifier Shelf Expiration Date Model / Serial / Lot [employer] Ar-2267 Client Retention Specialist Large Eyelet Pectoralis Button Fixation Latex Free - [id number] Implanted:Qty: 1 on 01/22/2020 by Jesus Mejia MD at [facility] [employer] 09/15/2024 AR-226 7 / / [id number] [employer] Ar-1927bct Corkscrew Suturetape 5.5mm 14.7mm Bioabsorbable Full Thread 1.3mm - [id number] Implanted:Qty: 1 on 01/22/2020 by Jesus Mejia MD at [facility] Right: Shoulder [employer] 09/15/2021 AR-1927BCT / / [id number] [employer] Ar-1927bct Corkscrew Suturetape 5.5mm 14.7mm Bioabsorbable Full Thread 1.3mm - [id number] Implanted:Qty: 1 on 01/22/2020 by Jesus Mejia MD at [facility] Right: Shoulder [employer] 09/15/2021 AR-1927BCT / / [id number] [employer] Ar-1927bct Corkscrew Suturetape 5.5mm 14.7mm Bioabsorbable Full Thread 1.3mm - [id number] Implanted:Qty: 1 on 01/22/2020 by Jesus Mejia MD at [facility] Right: Shoulder [employer] 09/15/2021 AR-1927BCT / / [id number] [employer] Ar-2324 Bcm Swivelock 4.75mm 24.5mm Self Punch Vent Shoulder Elizabeth Suture - [id number] Implanted:Qty: 1 on 01/22/2020 by Jesus Mejia MD at [facility] Right: Shoulder [employer] 06/15/2023 AR-2324BCM / / [id number] [employer] Ar-2324 Bcm Swivelock 4.75mm 24.5mm Self Punch Vent Shoulder Elizabeth Suture - [id number] Implanted:Qty: 1 on 01/22/2020 by Jesus Mejia MD at [facility] Right: Shoulder [employer] 07/15/2023 AR-2324BCM / / [id number] [employer] 1134.001 Creo Spinal Cap Locking Nonsterile Mis - [id number] Implanted:Qty: 4 on 06/16/2024 by Jordan Faulkner MD at [facility] Spine Lumbar [employer] 1134.0010 / / [employer] Creo 6.5mm 50mm Cannulated Modular Spine Screw Bone 1067.4650 - [id number] Implanted:Qty: 4 on 06/16/2024 by Jordan Faulkner MD at [facility] Spine Lumbar [employer] 1067.4650 / / [employer] Stephan Spinal Lumbar Prebent Creo Mis 5.5x60mm Titanium 1134.7060 - [id number] Implanted:Qty: 2 on 06/16/2024 by Jordan Faulkner MD at [facility] Spine Lumbar [employer] 1134.7060 / / Allosource Freeze Dried Chips 4-10mm Graft 30ml Bone Cancellous [id number] - [id number] Implanted:Qty: 1 on 06/16/2024 by Jordan Faulkner MD at [facility] Spine Lumbar [employer] 10/10/2028 [id number] / / [id number] Medtronic Inc Infuse 20ga 2x1in Vial Absorbable Syringe Needle Medium Graft 5.6 [id number] - [id number] Implanted:Qty: 1 on 06/16/2024 by Jordan Faulkner MD at [facility] Left: Spine Lumbar Medtronic Inc 01/14/2025 [id number] / / Glob[employer] Medical Cage Spinal Lumbar 0 Degree Dlif Expandable Rise L [id number] Titanium 193.305 - [id number] Implanted:Qty: 1 on 06/16/2024 by Jordan Faulkner MD at [facility] Spine Lumbar [employer] 193.305 / / [employer] 1134.01 Creo Mis 30mm Modular Polyaxial Tulip Head Screw Bone - [id number] Implanted:Qty: 4 on 06/16/2024 by Jordan Faulkner MD at [facility] Spine Lumbar [employer] 1134.0100 / / Procedures Procedure Name Priority Date/Time Associated Diagnosis Comments XR SPINE LUMBAR 2 OR 3 VIEWS Schedule Routine, Read Routine (OP Routine) 12/18/2024 11:36 AM CDT S/P lumbar spinal fusion Lumbar spine pain EGFR Routine 06/18/2024 6:31 AM LOCUM TENENS PSYCHIATRIST HEMOGLOBIN A1C Routine 05/24/2024 2:27 PM CDT Spinal stenosis of lumbar region, unspecified whether neurogenic claudication present Facet arthropathy Effusion of lumbar facet joint Degeneration of intervertebral disc of lumbar region, unspecified whether pain present Type 2 diabetes mellitus with other specified complication, unspecified whether continuous churn buttermaker insulin use (HCC) from Last 3 Months or Most Recently Relevant to Health Maintenance Results * XR Spine Lumbar 2 Or 3 View (12/18/2024 11:36 AM CDT) Anatomical Region Laterality Modality Spine N/A Computed Radiogr aphy 12/18/2024 11:5 3 AM CDT Impressions 12/18/2024 12:19 PM CDT Unchanged L2-L3 posterior and interbody fusion. Dictated by: Pepe Padgett MD PHD The radiology attending physician has personally reviewed this study, and had reviewed and/or edited this written report and agrees with it. Electronically signed by: Rakesh Mccarty M.D. Narrative 12/18/2024 12:19 PM CDT EXAMINATION: XR SPINE LUMBAR 2 OR 3 VIEWS HISTORY: Lumbar spinal fusion. COMPARISON: 09/11/2024 FINDINGS: 2 views of the lumbar spine are submitted for interpretation. Unchanged L2-L3 posterior and interbody fusion. The hardware is intact without periprosthetic fracture or lucency. Vertebral body heights are maintained. Mild multilevel degenerative disc and joint disease. Procedure Note Rakesh Mccarty MD PhD - 12/18/2024 EXAMINATION: XR SPINE LUMBAR 2 OR 3 VIEWS HISTORY: Lumbar spinal fusion. COMPARISON: 09/11/2024 FINDINGS: 2 views of the lumbar spine are submitted for interpretation. Unchanged L2-L3 posterior and interbody fusion. The hardware is intact without periprosthetic fracture or lucency. Vertebral body heights are maintained. Mild multilevel degenerative disc and joint disease. IMPRESSION: Unchanged L2-L3 posterior and interbody fusion. Dictated by: Pepe Padgett MD PHD The radiology attending physician has personally reviewed this study, and had reviewed and/or edited this written report and agrees with it. Electronically signed by: Rakesh Mccarty M.D. Jordan Faulkner MD IMG XR PROCEDURES Final Result * eGFR (06/18/2024 6:31 AM LOCUM TENENS PSYCHIATRIST) eGFR 64 >=60 mL/min/1. 73 m2 Comment: Interpretive Data Reference Interval Normal >/= 90 mL/min/1.73m2 Mildly decreased* 60 - 89 mL/min/1.73m2 Mildly to moderately decreased 45 - 59 mL/min/1.73m2 Moderately to severely decreased 30 - 44 mL/min/1.73m2 Severely decreased 15 - 29 mL/min/1.73m2 Kidney Failure < 15 mL/min/1.73m2 *Relative to young adult level Estimated glomerular filtration rate is determined by the 2020 CKD-EPI equation recommended by the National Kidney Foundation (A Unifying Approach to GFR Estimation: Recommendations of the NKF-ASK Task Force on Reassessing the Inclusion of Race in Diagnosing Kidney Disease, JASN 202). The CKD-EPI equation should not be used for patients with unstable renal function and has not been validated in children and those over 70. Current interpretive data was last reviewed 2021. Blood 06/18/2024 6:31 AM LOCUM TENENS PSYCHIATRIST 06/18/2024 6:42 AM LOCUM TENENS PSYCHIATRIST Alberto Aponte MD LAB BLOOD ORDERABLES Final Result Performing Organization Address [facility] de Phone Number [facility] [address] Department [employer] [place], [place] [id number] * (ABNORMAL) Hemoglobin A1c (05/24/2024 2:27 PM CDT) Hgb A1C 6.2(H) 4.0 - 5.6 % Estimated Average Glucose 131 mg/dL [facility] Comment: The ADA recommends reporting an estimated Average Glucose (eAG) with all Hemoglobin A1c results using the equation derived from a study of 507 normal and diabetic adults. Minority populations were underrepresented and children were not included. (Diabetes Care 31:9270-8604, 2008). The eAG is not equivalent to a fasting glucose. Blood 05/24/2024 2:27 PM CDT 05/24/2024 2:27 PM CDT us Jordan Faulkner MD LAB BLOOD ORDERABLES Fi nal Result Performing Organization Address [facility] de Phone Number [facility] [address] [place] [address] from Last 3 Months or Most Recently Relevant [place] [address] [place] [address] [facility] MEDICARE HMO * Guarantor: [facility] Account Type Relation to Patient Date of Phone Billing Address Workers Comp Employer [employer] Advance Directives For more information, please contact: [phone] * Full Code (Latest Code Status on File) Date Activated Date Inactivated Comments 06/16/2024 5:26 PM 06/18/2024 7:50 PM Care Teams Escort Car Driver Relationship Specialty Start Date End Date Mushtaq Cox MD [address] [place] [address] DEPT [facility] [place] [id number] PCP - General Family Medicine 09/04/20 Deacon Gates MD [address] [place] [address] Consulting Physician Cardiology 05/24/24 Twila Corona MD [address] [facility] [address] [place] [address] Referring Physician Nephrology 05/29/24
--- OUTSIDE RECORDS SUMMARY | 2024-12-23 08:14 | XMS_ITS | Clinical Summary ---
Author Organization [facility] [place] [address] Care Team Providers Care Dump Truck Operator Name Role Phone Mushtaq Cox MD Primary Care Provider [phone] Deacon Gates MD Unavailable [phone] Twila Corona MD Unavailable [phone] Allergies Active Allergy Reactions Criticality Noted Date Comments Adhesive Other (See comments) Low 01/19/2020 skin comes off skin comes off Medications pen needle, diabetic (BD Ultra-Fine Dali Pen Needle) 32 gauge x 5/32 needle 11/30/19 20 Active ezetimibe (ZETIA) 10 mg tablet [...] muscle spasms 120 tablet 1 10/17/19 25 025 Discontinued meloxicam (MOBIC) 15 mg tabletIndicatio [...] (01/15/2020): Added automatically from request for surgery [id number] Nontraumatic complete tear of right rotator cuff 12/14/2019 Diabetes mellitus 09/07/2019 Overview (03/06/2024): neg uacr Right shoulder pain 09/07/2019 Traumatic complete tear of right rotator cuff Diabetes mellitus 09/07/2019 Overview (07/03/2024): neg uacr Encounters Date Type Department Care Team Description 12/18/2024 11:30 AM CDT - 12/18/2024 11:59 PM CDT Hospital Encounter [facility] [address] [place] [address] S/P lumbar spinal fusion; Lumbar spine pain Discharge Disposition: Discharge to home or self care 12/18/2024 11:20 AM CDT Office Visit [facility] Orthopaedic Surgery [address] [place] [address] Jordan Faulkner MD S/P lumbar spinal fusion (Primary Dx) 12/06/2024 Orders Only [facility] Orthopa[facility] Surgery [address] 12th [place] [address] [place] [address] Jordan Faulkner MD S/P lumbar spinal fusion (Primary Dx); Lumbar spine pain from Last 3 Months Immunizations Immunization Administration Dates Next Due Influenza, Quadrivalent, Danica l Culture-based MDCK, Preservative Free, Antibiotic Free, Intramuscular 06/20/2020 Influenza, Quadrivalent, Spl it, Intramuscular 06/20/2020 Influenza, Quadrivalent, Spl it, Preservative Free, Intramuscular 04/26/2023,05/12/2022,07/07/2021,06/01 Tdap 04/10/2024,10/31/2014 Surgical History Surgery Date Site/Laterality Comments ROTATOR CUFF REPAIR 08/16/2014 - 08/15/2015 Left FUNCTIONAL ENDOSCOPIC SINUS SURGERY 08/16/2017 - 08/15/2018 IR INJECTION ARTHROGRAM SI JOINT BILATERAL WITH GUIDANCE 03/27/2024 Bilateral FL UPPER GI AIR CONTRAST W KUB 05/01/2024 Bilateral SPINAL FUSION 06/16/2024 Minimally invasive left L2-3 extreme lateral interbody fusion - left L2-3 posterior spinal fusion Medical History Medical History Date Comments Arthritis Anxiety well controlled with meds Sleep apnea no C=PAP or mout h guard Hypertension well controlled with meds Hyperlipidemia well controlled with meds Depression well controlled with meds GERD (gastroesophageal reflux disease) well controlled with meds Type 2 diabetes mellitus (HCC) 2014 w ell controlled with meds. 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 Gender Identity Male 05/21/2021 1:05 PM CDT Sexual Orientation Straight 04/10/2024 1: 13 PM CDT Obstetrics History Last Filed Vital Signs Vital Sign Reading Time Taken Comments Blood Pressure 123/55 06/18/2024 7:55 AM FLEET MANAGER/DISPATCH Pulse 79 06/18/2024 7:55 AM FLEET MANAGER/DISPATCH Temperature 36.8 C (98.3 F) 06/18/2024 7:55 AM FLEET MANAGER/DISPATCH Respiratory Rate 16 06/18/2024 7:55 AM FLEET MANAGER/DISPATCH Oxygen Saturation 99% 06/18/2024 7:55 AM FLEET MANAGER/DISPATCH Inhaled Oxygen Concentration - - Weight 93.3 kg (205 lb 11 oz) 06/16/2024 9:53 AM CDT Height 177.8 cm (5' 10 ) 06/16/2024 9:53 AM CDT Body Mass Index 29.51 06/16/2024 9:53 AM CDT Plan of Treatment Health Maintenance Due Date Last Done Comments Albumin Creatinine Ratio, Urine 1965 Colon Cancer Screening-Colonoscopy 1965 Depression Screening 1965 Hepatitis C Screening 1965 Prostate Cancer Screening-PSA 1965 Dilated Eye Exam 1965 Foot Exam 1965 Lipid Panel 1965 Hepatitis B Screening 1983 Regular Well Visit/Exam 18-64 1983 Pneumococcal vaccine <65 (1 of 2 - PCV) 1984 Zoster Vaccine (1 of 2) 2015 Hemoglobin A1C 11/22/2024 05/24/2024 Influenza Vaccine (Season Ended) 2025 04/26/2023, 05/12/2022, 07/07/2021, Additional history exists eGFR 06/18/2025 06/18/2024, 09/2023, 05/24/2024 DTaP/Tdap/Td Vaccine (3 - Td or Tdap) 04/10/2034 04/10/2024, 10/31/2014 Medical Devices Implanted Type Area Library Circulation Assistant Device Identifier Shelf Expiration Date Model / Serial / Lot [employer] Ar-2267 Sampling Expert Large Eyelet Pectoralis Button Fixation Latex Free - [id number] Implanted:Qty: 1 on 01/22/2020 by Jesus Mejia MD at [facility] [employer] 09/15/2024 AR-226 7 / / [id number] [employer] Ar-1927bct Corkscrew Suturetape 5.5mm 14.7mm Bioabsorbable Full Thread 1.3mm - [id number] Implanted:Qty: 1 on 01/22/2020 by Jesus Mejia MD at [facility] Right: Shoulder [employer] 09/15/2021 AR-1927BCT / / [id number] [employer] Ar-1927bct Corkscrew Suturetape 5.5mm 14.7mm Bioabsorbable Full Thread 1.3mm - [id number] Implanted:Qty: 1 on 01/22/2020 by Jesus Mejia MD at [facility] Right: Shoulder [employer] 09/15/2021 AR-1927BCT / / [id number] [employer] Ar-1927bct Corkscrew Suturetape 5.5mm 14.7mm Bioabsorbable Full Thread 1.3mm - [id number] Implanted:Qty: 1 on 01/22/2020 by Jesus Mejia MD at [facility] Right: Shoulder [employer] 09/15/2021 AR-1927BCT / / [id number] Ar[employer] Ar-2324 Bcm Swivelock 4.75mm 24.5mm Self Punch Vent Shoulder Linn Suture - [id number] Implanted:Qty: 1 on 01/22/2020 by Jesus Mejia MD at [facility] Right: Shoulder [employer] 06/15/2023 AR-2324BCM / / [id number] [employer] Ar-2324 Bcm Swivelock 4.75mm 24.5mm Self Punch Vent Shoulder Linn Suture - [id number] Implanted:Qty: 1 on 01/22/2020 by Jesus Mejia MD at [facility] Right: Shoulder [employer] 07/15/2023 AR-2324BCM / / [id number] Gl[employer] 1134.001 Creo Spinal Cap Locking Nonsterile Mis - [id number] Implanted:Qty: 4 on 06/16/2024 by Jordan Faulkner MD at [facility] Spine Lumbar [employer] 1134.0010 / / [employer] Creo 6.5mm 50mm Cannulated Modular Spine Screw Bone 1067.4650 - [id number] Implanted:Qty: 4 on 06/16/2024 by Jordan Faulkner MD at [facility] Spine Lumbar [employer] 1067.4650 / / [employer] Stephan Spinal Lumbar Prebent Creo Mis 5.5x60mm Titanium 1134.7060 - [id number] Implanted:Qty: 2 on 06/16/2024 by Jordan Faulkner MD at [facility] Spine Lumbar [employer] 1134.7060 / / Allosource Freeze Dried Chips 4-10mm Graft 30ml Bone Cancellous [id number] - [id number] Implanted:Qty: 1 on 06/16/2024 by Jordan Faulkner MD at [facility] Spine Lumbar [employer] 10/10/2028 [id number] / / [id number] Medtronic Inc Infuse 20ga 2x1in Vial Absorbable Syringe Needle Medium Graft 5.6 [id number] - [id number] Implanted:Qty: 1 on 06/16/2024 by Jordan Faulkner MD at [facility] Left: Spine Lumbar Medtronic Inc 01/14/2025 [id number] / / Glob[employer] Medical Cage Spinal Lumbar 0 Degree Dlif Expandable Rise L [id number] Titanium 193.305 - [id number] Implanted:Qty: 1 on 06/16/2024 by Jordan Faulkner MD at [facility] Spine Lumbar [employer] 193.305 / / Chlorine [employer]ie Medical 1134.01 Creo Mis 30mm Modular Polyaxial Tulip Head Screw Bone - [id number] Implanted:Qty: 4 on 06/16/2024 by Jordan Faulkner MD at [facility] Spine Lumbar [employer] 1134.0100 / / Procedures Procedure Name Priority Date/Time Associated Diagnosis Comments XR SPINE LUMBAR 2 OR 3 VIEWS Schedule Routine, Read Routine (OP Routine) 12/18/2024 11:36 AM CDT S/P lumbar spinal fusion Lumbar spine pain EGFR Routine 06/18/2024 6:31 AM FLEET MANAGER/DISPATCH HEMOGLOBIN A1C Routine 05/24/2024 2:27 PM CDT Spinal stenosis of lumbar region, unspecified whether neurogenic claudication present Facet arthropathy Effusion of lumbar facet joint Degeneration of intervertebral disc of lumbar region, unspecified whether pain present Type 2 diabetes mellitus with other specified complication, unspecified whether jail insulin use (HCC) from Last 3 Months [...] it. Electronically signed by: Rakesh Mccarty M.D. us Jordan Faulkner MD IMG XR PROCEDURES Final Result * eGFR (06/18/2024 6:31 AM FLEET MANAGER/DISPATCH) eGFR 64 >=60 mL/min/1. 73 m2 Comment: [...] of Race in Diagnosing Kidney Disease, JASN 2020). The CKD-EPI equation should not be used for patients with unstable renal function and has not been validated in children and those over 70. Current interpretive data was last reviewed 2021. Blood 06/18/2024 6:31 AM FLEET MANAGER/DISPATCH 06/18/2024 6:42 AM FLEET MANAGER/DISPATCH us Alberto Aponte MD LAB BLOOD ORDERABLES Final Result Performing Organization Address [facility] Co de Phone Number [facility] [address] [place] [address] * (ABNORMAL) Hemoglobin A1c (05/24/2024 2:27 PM CDT) Hgb A1C 6.2(H) 4.0 - 5.6 % Estimated Average Glucose 131 mg/dL [facility] Comment: The ADA recommends reporting an estimated Average Glucose (eAG) with all Hemoglobin A1c results using the equation derived from a study of 507 normal and diabetic adults. Minority populations were underrepresented and children were not included. (Diabetes Care 31:7463-9991, 2008). The eAG is not equivalent to a fasting glucose. Blood 05/24/2024 2:27 PM CDT 05/24/2024 2:27 PM CDT us Jordan Faulkner MD LAB BLOOD ORDERABLES Fi nal Result Performing Organization Address [facility] Co de Phone Number [facility] [address] [place] [address] from Last 3 Months or Most Recently Relevant to Health [place] [address] [facility] MEDICARE HMO GENEVA DAVID [id number] [facility] MEDICARE HMO * Guarantor: [facility] Account Type Relation to Patient Date of Phone Billing Address Workers Comp Employer [employer] Advance Directives For more information, please contact: [phone] * Full Code (Latest Code Status on File) Date Activated Date Inactivated Comments 06/16/2024 5:26 PM 06/18/2024 7:50 PM Care Teams Dump Truck Operator Relationship Specialty Start Date End Date Mushtaq Cox MD [address] [place] [address] PCP - General Family Medicine 09/04/20 Deacon Gates MD [address] [place] [address] Consulting Physician Cardiology 05/24/24 Twila Corona MD [address] [place] [address] Referring Physician Nephrology 05/29/24
--- OUTSIDE RECORDS SUMMARY | 2024-12-23 08:14 | XMS_ITS | Clinical Summary ---
Author Organization [facility] Address [address], [address] [address] Phone Care Team Providers Care Gear Hobber Set Up Operator Name Role Phone Provider, Unknown Primary Care Provider Unavaila Jordan Tijerina DO Unavailable [phone] Allergies No known active allergies Medications polyethylene glycol (MIRALAX) Powder Use entire 255g bottle with 64oz of clear liquid as directed for colonoscopy prep. 255 g 0 7 Active carisoprodol (SOMA) 350 MG Tablet Take 350 mg by mouth 3 times daily as needed for Muscle spasms. Active simvastatin (ZOCOR) 20 MG Tablet Take 20 mg by mouth every evening. Active nabumetone (RELAFEN) 500 MG Tablet Take 500 mg by mouth 2 times daily. Active Empagliflozin (JARDIANCE) 25 MG Tablet Take 1 Tab by mouth daily. Active amitriptyline (ELAVIL) 25 MG Tablet Take 25 mg by mouth nightly. Active Omeprazole 20 MG Tablet Delayed Response Take 2 Tabs by mouth daily. Active LISINOPRIL-HYDR OCHLOROTHIAZIDE PO Take by mouth. Activ e glimepiride (AMARYL) 4 MG Tablet Take 4 mg by mouth 2 times daily. 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 Gender Identity Not on file Sexual Orientation Not on file Plan of Treatment Health Maintenance Due Date Last Done Comments Hepatitis C Virus (HCV) Screening 1965 TdaP Immunization 1965 Hepatitis B Immunization (1 of 3 - 19+ 3-dose series) 1984 Cologuard 2015 Immunochemical Fecal Occult Blood 2015 Pneumococcal Immunization (5 0+ years) (1 of 1 - PCV) 2015 Zoster Immunization (1 of 2) 2015 PSA Discussion 2020 Colonoscopy 04/05/2022 04/05/2017 Colorectal Cancer Screening 04/05/2022 Influenza Immunization (#1) 2024 SARS-COV-2 Immunization ( - 2023- season) 2024 Respiratory Syncytial Virus (RSV) Immunization (Adult) (1 - 1-dose 75+ series) 2040 04/05/2017 Meningococcal Immunization (ACWY) Aged Out No longer eligible based on patient's age to complete this topic Pneumococcal Immunization Combined Aged Out No longer eligible based on patient's age to complete this topic Rotavirus Immunization Aged Out No lo nger eligible based on patient's age to complete this topic Procedures Procedure Name Priority Date/Time Associated Diagnosis Comments COLONOSCOPY Routine 04/05/2017 from Last 3 Months or Most Recently Relevant to Health Maintenance Results * COLONOSCOPY (04/05/2017) Erlin Houser PROCEDURE/MINOR SURGICAL ORDERA BLES Final Result from Last 3 Months or Most Recently Relevant to Health Maintenance Care Teams Gear Hobber Set Up Operator Relationship Specialty Start Date End Date Provider, Unknown UNKNOWN PCP - General 04/07/17 Jordan Cramer DO UNKNOWN Gastroenterology 04/07/17
--- OUTSIDE RECORDS SUMMARY | 2024-12-23 08:14 | XMS_ITS | Data Portability ---
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 BPH - GERD - SLIDING HIATAL HERNIA - CHRONIC CONSTIPATION - RT ROTATOR CUFF TEAR - ED - OBESITY I - S/P COVID (04/04) - H/O VIT D DEFICIENCY HbA1c: 9.7(03/28/20) - 8.1(06/04/20) - 6.4(08/23/20) - 6.9(11/20/20) - 7.2(01/27/21) - 7.4(03/24/21) - 6.5(06/30/21) - 6.8(12/26/21) - 7.6(04/13/22) - 8.0(07/27/22) - 7.1(10/22/22) - 7.3(03/29/23) - 6.8(07/22/23) - 6.9(10/19/23) - 6.3(04/10/24) Annual labs: 04/10/24. Annual labs: 04/05/23. US renal: 01/25/23. Annual labs: 04/13/22. CT A&P w/wo: 07/24/21. US bladder: 07/17/21. X-ray L-spine: 07/15/21. Annual labs: 03/24/21. CT chest wo: 02/25/21. PFT: 02/13/21. US renal: 02/12/21. [place] heart scan: 02.03.21. US carotids: 01/22/21. US renal: 05/03/20. Annual labs: 03/22/20. D/w pt & his in detail about his conditions, recent labs & imagines and further plan of care. All meds verified with pt. Meds as directed. Cont heat pack as directed. Good fiber intake explained. Step by step increase in Insulin explained in detail. Call us if any concerns. Diet and exercise explained in detail. BP and DM diary education given and call us if any concerns. Cont f/u with [facility] as per schedule. Cont f/u with Spine surgeon as per schedule. Cont f/u with Uro as per schedule. Cont f/u with Nephro as per schedule. Cont f/u with Ophtho as per schedule. Cont f/u with Pulmo as per schedule. Cont f/u with Cardio as per schedule. Cont f/u with [facility] as per schedule. Cont f/u with Ortho at [facility] as per schedule. Cont f/u with GI as per schedule. Advised to refer to Endo; but pt declined. Advised to refer to PT; but pt declined. HM: EGD - 10/06, normal as per pt. Cont f/u with GI as per schedule. Colonoscopy - 2016, normal as per pt. Cont f/u with GI as per schedule. Flu - 04/26/23. Tdap - 04/10/24. Shingrix - At Pharmacy/HD. F/u in 3 months. A1c, CBC in 08/08. Annual labs in 04/09. Not available 05/01/2024 12:13:06 08/07/2024 08/07/2024 59 yo M with - LEUKOCYTOSIS, persistent - DM II - HTN - CKD III - HLD - HTG - DDD L-SPINE - CHRONIC LOW BACK PAIN; S/p lumbar fusion (06/16/24) - ? BPH - GERD - SLIDING HIATAL HERNIA - CHRONIC CONSTIPATION - RT ROTATOR CUFF TEAR - ED - OBESITY I - S/P COVID (04/04) - H/O VIT D DEFICIENCY HbA1c: 9.7(03/28/20) - 8.1(06/04/20) - 6.4(08/23/20) - 6.9(11/20/20) - 7.2(01/27/21) - 7.4(03/24/21) - 6.5(06/30/21) - 6.8(12/26/21) - 7.6(04/13/22) - 8.0(07/27/22) - 7.1(10/22/22) - 7.3(03/29/23) - 6.8(07/22/23) - 6.9(10/19/23) - 6.3(04/10/24) - 6.1(07/31/24) Annual labs: 04/10/24. Annual labs: 04/05/23. US renal: 01/25/23. Annual labs: 04/13/22. CT A&P w/wo: 07/24/21. US bladder: 07/17/21. X-ray L-spine: 07/15/21. Annual labs: 03/24/21. CT chest wo: 02/25/21. PFT: 02/13/21. US renal: 02/12/21. NM heart scan: 02.03.21. US carotids: 01/22/21. US renal: 05/03/20. Annual labs: 03/22/20. D/w pt & his in detail about his conditions, recent labs & imagines and further plan of care. Form filled out and given to pt. All meds verified with pt. Meds as directed. Cont heat pack as directed. Good fiber intake explained. Step by step increase in Insulin explained in detail. Call us if any concerns. Diet and exercise explained in detail. BP and DM diary education given and call us if any concerns. Cont f/u with [facility] as per schedule. Cont f/u with Spine surgeon as per schedule. Cont f/u with Uro as per schedule. Cont f/u with Nephro as per schedule. Cont f/u with Ophtho as per schedule. Cont f/u with Pulmo as per schedule. Cont f/u with Cardio as per schedule. Cont f/u with [facility] as per schedule. Cont f/u with Ortho at [facility] as per schedule. Cont f/u with GI as per schedule. Advised to refer to Endo; but pt declined. Offered to refer to Hemat; but pt declined. HM: EGD - 10/06, normal as per pt. Cont f/u with GI as per schedule. Colonoscopy - 2016, normal as per pt. Cont f/u with GI as per schedule. Flu - 04/26/23. At pharmacy. Tdap - 04/10/24. Shingrix - Pt got 2 doses. F/u in 3 months. A1c, CBC in 11/07. Annual labs in 04/09. Not available 08/07/2024 10:01:19 11/06/2024 11/06/2024 59 yo M with - LEUKOCYTOSIS, resolved - DM II - HTN - CKD III - HLD - HTG - DDD L-SPINE - CHRONIC LOW BACK PAIN; S/p lumbar fusion (06/16/24) - ? BPH - GERD - SLIDING HIATAL HERNIA - CHRONIC CONSTIPATION - RT ROTATOR CUFF TEAR - ED - OBESITY I - S/P COVID (04/04) - H/O VIT D DEFICIENCY HbA1c: 9.7(03/28/20) - 8.1(06/04/20) - 6.4(08/23/20) - 6.9(11/20/20) - 7.2(01/27/21) - 7.4(03/24/21) - 6.5(06/30/21) - 6.8(12/26/21) - 7.6(04/13/22) - 8.0(07/27/22) - 7.1(10/22/22) - 7.3(03/29/23) - 6.8(07/22/23) - 6.9(10/19/23) - 6.3(04/10/24) - 6.1(07/31/24) - 6.5(11/03/24) Annual labs: 04/10/24. Annual labs: 04/05/23. US renal: 01/25/23. Annual labs: 04/13/22. CT A&P w/wo: 07/24/21. US bladder: 07/17/21. X-ray L-spine: 07/15/21. Annual labs: 03/24/21. CT chest wo: 02/25/21. PFT: 02/13/21. US renal: 02/12/21. NM heart scan: 02.03.21. US carotids: 01/22/21. US renal: 05/03/20. Annual labs: 03/22/20. D/w pt & his in detail about his conditions, recent labs & imagines and further plan of care. All meds verified with pt. Meds as directed. Cont heat pack as directed. Good fiber intake explained. Step by step increase in Insulin explained in detail. Call us if any concerns. Diet and exercise explained in detail. BP and DM diary education given and call us if any concerns. Cont f/u with [facility] as per schedule. Cont f/u with Spine surgeon as per schedule. Cont f/u with Uro as per schedule. Cont f/u with Nephro as per schedule. Cont f/u with Ophtho as per schedule. Cont f/u with Pulmo as per schedule. Cont f/u with Cardio as per schedule. Cont f/u with [facility] as per schedule. Cont f/u with Ortho at [facility] as per schedule. Cont f/u with GI as per schedule. Advised to refer to Endo; but pt declined. Offered to refer to Hemat; but pt declined. HM: EGD - 10/06, normal as per pt. Cont f/u with GI as per schedule. Colonoscopy - 2016, normal as per pt. Cont f/u with GI as per schedule. Flu - 04/26/23. At pharmacy. Tdap - 04/10/24. Shingrix - Pt got 2 doses. F/u in 3 months. A1c in 02/07. Annual labs in 04/09. [email or web address] Not available 11/06/2024 12:16:44 Plan of Treatment Reminders Order Date Submit Date Provider Last Modified By Organization Details Last Modified Time Details Appointments Follow Up 15 2024 11:00A M Mushtaq Cox MD Not available Not available Not available Lab glycohemo globin, total, blood 2024 025 [email or web address] [facility] ([facility]), [address] [place], [address], 11/06/2024 12:12:32 CBC w/ auto diff 2023 025 [facility] (Lab), [address] [place], [address], 11/03/2024 13:29:31 glycohemo globin, total, blood 2023 025 [facility] (Lab), [address] [place], [address], 11/03/2024 16:15:33 CBC w/ auto diff [address] (Lab), [address] [place], [address], 07/31/2024 15:36:36 glycohemo globin, total, blood [address] (Lab), [address] [place], [address], 07/31/2024 15:40:58 Referral None recorded. Procedures None recorded. Surgeries None recorded. Imaging None recorded. Medication Orders hydrochlo rothiazid e 12.5 mg tablet 2024 025 [facility] #[id number], [address], [place], [id number], 11/06/2024 12:12:56 lisinopri l 5 mg tablet 2024 025 [facility] #57028, [address], [place], [id number], 11/06/2024 12:13:09 Tradjenta 5 mg tablet 2024 025 [facility] #55306, [address], [place], [id number], 11/06/2024 12:12:52 Jardiance 25 mg tablet 2024 [facility] #87518, [address] [facility], [place], [place], [id number], 11/06/2024 12:13:06 Lantus Solostar U-100 Insulin 100 unit/mL (3 mL) subcutane ous pen 2024 [facility] #97587, [address] [facility], [place], [place], [id number], 11/06/2024 12:12:53 glimepiri de 2 mg tablet 2024 [facility] #53520, [address] [facility], [place], [place], [id number], 11/06/2024 12:12:54 Ozempic 2 mg/dose (8 mg/3 mL) subcutane ous pen injector 2024 [facility], [address], [place], [address], 11/06/2024 12:12:38 Vascepa 1 gram capsule 2024 [facility], [address], [place], [address], 11/06/2024 12:12:37 atorvasta tin 40 mg tablet 2024 [facility] #86749, [address] [facility], [place], [place], [id number], 11/06/2024 12:12:54 ezetimibe 10 mg tablet 2024 025 [facility] #49805, [address] [facility], [place], [place], [id number], 11/06/2024 12:12:54 hydrochlo rothiazid e 12.5 mg tablet 2023 [facility] #39720, [address] [facility], [place], [place], [id number], 08/07/2024 09:46:09 lisinopri l 5 mg tablet 2023 [facility] #34483, [address] [facility], [place], [place], [id number], 08/07/2024 09:46:09 Tradjenta 5 mg tablet 2023 [facility] #36814, [address] [facility], [place], [place], [id number], 08/07/2024 09:46:06 Jardiance 25 mg tablet 2023 [facility] #12428, [address] [facility], [place], [place], [id number], 08/07/2024 09:46:06 Lantus Solostar U-100 Insulin 100 unit/mL (3 mL) subcutane ous pen 2023 [facility] #93477, [address] [facility], [place], [place], [id number], 08/07/2024 09:46:06 glimepiri de 2 mg tablet 2023 [facility] #46111, [address] [facility], [place], [place], [id number], 08/07/2024 09:46:09 Ozempic 2 mg/dose (8 mg/3 mL) subcutane ous pen injector 2023 [facility], [address], [place], [address], 08/07/2024 09:46:01 Vascepa 1 gram capsule 2023 [facility], [address], [place], [address], 08/07/2024 09:46:04 atorvasta tin 40 mg tablet 2023 [facility] #40569, [address] [facility], [place], [place], [id number], 08/07/2024 09:46:16 ezetimibe 10 mg tablet 2023 [facility] #55374, [address] [facility], [place], [place], [id number], 08/07/2024 09:46:07 hydrochlo rothiazid e 12.5 mg tablet 2023 [facility] #00861, [address] [facility], [place], [place], [id number], 05/01/2024 12:06:58 lisinopri l 5 mg tablet 2023 024 [facility] #36775, [address] [facility], [place], [place], [id number], 05/01/2024 12:06:45 Tradjenta 5 mg tablet 2023 024 [facility] #66697, [address] [facility], [place], [place], [id number], 05/01/2024 12:06:32 Jardiance 25 mg tablet 2023 024 [facility] #71339, [address] [facility], [place], [place], [id number], 05/01/2024 12:06:50 Lantus Solostar U-100 Insulin 100 unit/mL (3 mL) subcutane ous pen 2023 [facility] #59719, [address] [facility], [place], [place], [id number], 05/01/2024 12:06:37 glimepiri de 2 mg tablet 2023 [facility] #02504, [address] [facility], [place], [place], [id number], 05/01/2024 12:06:47 Ozempic 2 mg/dose (8 mg/3 mL) subcutane ous pen injector 2023 [facility], [address], [place], [address], 05/01/2024 12:06:20 Vascepa 1 gram capsule 2023 [facility], [address], [place], [address], 05/01/2024 12:15:29 atorvasta tin 40 mg tablet 2023 [facility] #86031, [address] [facility], [place], [place], [id number], 05/01/2024 12:06:35 ezetimibe 10 mg tablet 2023 024 [facility] #05302, [address], [place], [id number], 05/01/2024 12:06:34 Patient TargetsNo targets recorded. Patient Instructions Encounter Date Encounter Id Patient Instructions Last Modified By Organization Details Last Modified Time 05/01/2024 [id number] starting a weigh t loss plan: care instructions [email or web address] Not available 05/01/2024 12:15:43 08/07/2024 [id number] starting a weigh t loss plan: care instructions [email or web address] Not available 08/07/2024 09:45:53 11/06/2024 [id number] starting a weigh t loss plan: care instructions [email or web address] Not available 11/06/2024 12:12:32 Reason for Referral None Reported. Results Created Date Observation Date Name Description Value Unit Range Abnormal Flag Note LastModifiedBy Organization Detail LastModifiedTime 04/10/20 24 04/10/2024 CBC/C OMPLE TE BLD COUNT W/DIF F white blood cells 12.8 x10'3 /uL 4.2-10 .8 high Not Available [facility] (Lab) [address] [place], [address], 04/10/2024 21:25:25 04/10/20 24 04/10/2024 CBC/C OMPLE TE BLD COUNT W/DIF F red blood cells 4.22 x10'6 /uL 4.10-5 .80 Not Available [facility] (Lab) [address] [place], [address], 04/10/2024 21:25:25 04/10/20 24 04/10/2024 CBC/C OMPLE TE BLD COUNT W/DIF F hemoglobin 13.3 g/dL 13.2-1 7.0 Not Available [facility] (Lab) [address] [place], [address], 04/10/2024 21:25:25 04/10/2004/10/2024 CBC/C OMPLE TE BLD COUNT W/DIF F hematocrit 40.6 % 39.3-5 0.0 Not Available [facility] (Lab) [address] [place], [address], 04/10/2024 21:25:25 04/10/20 24 04/10/2024 CBC/C OMPLE TE BLD COUNT W/DIF F mean red cell volume 96.2 fL 80.0-9 7.0 Not Available [facility] (Lab) [address] [place], [address], 04/10/2024 21:25:25 04/10/20 24 04/10/2024 CBC/C OMPLE TE BLD COUNT W/DIF F mean red cell hemoglobin 31.5 pg 27.0-3 3.0 Not Available [facility] (Lab) [address] [place], [address], 04/10/2024 21:25:25 04/10/20 24 04/10/2024 CBC/C OMPLE TE BLD COUNT W/DIF F mean RBC HGB concentratio n 32.8 g/dL 31.0-3 6.0 Not Available [facility] (Lab) [address] [place], [address], 04/10/2024 21:25:25 04/10/20 24 04/10/2024 CBC/C OMPLE TE BLD COUNT W/DIF F red cell distribution width 13.5 % 11.8-1 5.5 Not Available [facility] (Lab) [address] [place], [address], 04/10/2024 21:25:25 04/10/20 24 04/10/2024 CBC/C OMPLE TE BLD COUNT W/DIF F platelets 174 x10'3 /uL 150-40 0 Not Available [facility] (Lab) [address] [place], [address], 04/10/2024 21:25:25 04/10/20 24 04/10/2024 CBC/C OMPLE TE BLD COUNT W/DIF F mean platelet volume 12.1 fL 9.0-12 .4 Not Available [facility] (Lab) [address] [place], [address], 04/10/2024 21:25:25 04/10/20 24 04/10/2024 CBC/C OMPLE TE BLD COUNT W/DIF F neutrophils 70.2 % 39.0-7 2.0 Not Available [facility] (Lab) [address] [place], [address], 04/10/2024 21:25:25 04/10/20 24 04/10/2024 CBC/C OMPLE TE BLD COUNT W/DIF F lymphocytes 20.2 % 16.0-4 7.0 Not Available [facility] (Lab) [address] [place], [address], 04/10/2024 21:25:25 04/10/20 24 04/10/2024 CBC/C OMPLE TE BLD COUNT W/DIF F monocytes 8.0 % 5.0-12 .0 Not Available [facility] (Lab) [address] [place], [address], 04/10/2024 21:25:25 04/10/20 24 04/10/2024 CBC/C OMPLE TE BLD COUNT W/DIF F eosinophils 1.4 % 1.0-7. 0 Not Available [facility] (Lab) [address] [place], [address], 04/10/2024 21:25:25 04/10/2004/10/2024 CBC/C OMPLE TE BLD COUNT W/DIF F basophils 0.2 % 0.0-2. 0 Not Available [facility] (Lab) [address] [place], [address], 04/10/2024 21:25:25 04/10/20 24 04/10/2024 CBC/C OMPLE TE BLD COUNT W/DIF F neutrophils, absolute count 8.99 x10'3 /uL 1.5-8. 0 high Not Available [facility] (Lab) [address] [place], [address], 04/10/2024 21:25:25 04/10/20 24 04/10/2024 CBC/C OMPLE TE BLD COUNT W/DIF F lymphocytes, absolute count 2.59 x10'3 /uL 1.07-3 .43 Not Available [facility] (Lab) [address] [place], [address], 04/10/2024 21:25:25 04/10/20 24 04/10/2024 CBC/C OMPLE TE BLD COUNT W/DIF F monocytes, absolute count 1.03 x10'3 /uL 0.29-0 .99 high Not Available [facility] (Lab) [address] [place], [address], 04/10/2024 21:25:25 04/10/20 24 04/10/2024 CBC/C OMPLE TE BLD COUNT W/DIF F eosinophils, absolute count 0.18 x10'3 /uL 0.02-0 .53 Not Available [facility] (Lab) [address] [place], [address], 04/10/2024 21:25:25 04/10/20 24 04/10/2024 CBC/C OMPLE TE BLD COUNT W/DIF F basophils, absolute count 0.03 x10'3 /uL 0.01-0 .08 Not Available [facility] (Lab) [address] [place], [address], 04/10/2024 21:25:25 04/10/20 24 04/10/2024 COMPR EHENS JOAQUIM METAB OLIC PANEL sodium 138 mmol/ L 137-14 5 Not Available [facility] (Lab) [address] [place], [address], 04/10/2024 21:46:56 04/10/20 24 04/10/2024 COMPR EHENS JOAQUIM METAB OLIC PANEL potassium 4.4 mmol/ L 3.5-5. 1 Not Available [facility] (Lab) [address] [place], [address], 04/10/2024 21:46:56 04/10/20 24 04/10/2024 COMPR EHENS JOAQUIM METAB OLIC PANEL chloride 111 mmol/ L 98-107 high Not Available [facility] (Lab) [address] [place], [address], 04/10/2024 21:46:56 04/10/20 24 04/10/2024 COMPR EHENS JOAQUIM METAB OLIC PANEL carbon dioxide 21 mmol/ L 22-30 low Not Available [facility] (Lab) [address] [place], [address], 04/10/2024 21:46:56 04/10/20 24 04/10/2024 COMPR EHENS JOAQUIM METAB OLIC PANEL anion gap 10.4 mmol/ L 14-22 low Not Available [facility] (Lab) [address] [place], [address], 04/10/2024 21:46:56 04/10/20 24 04/10/2024 COMPR EHENS JOAQUIM METAB OLIC PANEL glucose 57 mg/dL 70-99 low Not Available [facility] (Lab) [address] [place], [address], 04/10/2024 21:46:56 04/10/20 24 04/10/2024 COMPR EHENS JOAQUIM METAB OLIC PANEL BUN 47 mg/dL 8-19 high Not Available [facility] (Lab) [address] [place], [address], 04/10/2024 21:46:56 04/10/20 24 04/10/2024 COMPR EHENS JOAQUIM METAB OLIC PANEL creatinine 2.16 mg/dL 0.66-1 .25 high Not Available [facility] (Lab) [address] [place], [address], 04/10/2024 21:46:56 04/10/20 24 04/10/2024 COMPR EHENS JOAQUIM METAB OLIC PANEL GFR 31 Refer ence Range : [place] ge GFR Healt hy Adult : >60 mL/mi n/1.7 3 m2 Chron ic Kidne y Disea se: 15-60 mL/mi n/1.7 3 m2 Kidne y Failu re: <15/m L/min /1.73 m2 www.n iddk. nih.g ov The MDRD study equat ion has not been valid ated in child cherry <18 years of age; pregn ant women ; the elder ly >85 years of age; or in some racia l or ethni c subgr oups, such as Hispa nics. Outsi de the valid ated kiera eters , estim ated GFR is less accur ate, requi ring clini jonny judgm ent on a case- by-ca se basis . Clini jonny inter preta tion for other races and ages must be made by the clini alex. The MDRD study equat ion has not been valid ated for the evalu ation of serum creat inine relat ed to nutri briseyda l statu s or medic ation usage . For perso ns <18 years of age, a pedia tric GFR calcu lator is avail able on the [facility] websi te: https ://allan rene.bhavna chiu.abdulaziz santos/pr ofess ional s/kdo qi/gf r_cal culat or Not Available [facility] (Lab) [address] [place], [address], 04/10/2024 21:46:56 04/10/20 24 04/10/2024 COMPR EHENS JOAQUIM METAB OLIC PANEL alkaline phosphatase 84 U/L 38-126 Not Available [facility] (Lab) [address] [place], [address], 04/10/2024 21:46:56 04/10/20 24 04/10/2024 COMPR EHENS JOAQUIM METAB OLIC PANEL alanine aminotransfe rase 21 U/L 0-50 Not Available [facility] (Lab) [address] [place], [address], 04/10/2024 21:46:56 04/10/20 24 04/10/2024 COMPR EHENS JOAQUIM METAB OLIC PANEL aspartate aminotransfe rase 24 U/L 15-46 Not Available [facility] (Lab) [address] [place], [address], 04/10/2024 21:46:56 04/10/20 24 04/10/2024 COMPR EHENS JOAQUIM METAB OLIC PANEL bilirubin, total 0.70 mg/dL 0.20-1 .30 Not Available [facility] (Lab) [address] [place], [address], 04/10/2024 21:46:56 04/10/20 24 04/10/2024 COMPR EHENS JOAQUIM METAB OLIC PANEL calcium 9.3 mg/dL 8.4-10 .2 Not Available [facility] (Lab) [address] [place], [address], 04/10/2024 21:46:56 04/10/20 24 04/10/2024 COMPR EHENS JOAQUIM METAB OLIC PANEL total protein 6.9 g/dL 6.3-8. 2 Not Available [facility] (Lab) [address] [place], [address], 04/10/2024 21:46:56 04/10/20 24 04/10/2024 COMPR EHENS JOAQUIM METAB OLIC PANEL albumin 4.3 g/dL 3.4-5. 0 Not Available [facility] (Lab) [address] [place], [address], 04/10/2024 21:46:56 04/10/20 24 04/10/2024 COMPR EHENS JOAQUIM METAB OLIC PANEL globulin 2.6 g/dL 2.6-4. 2 Not Available [facility] (Lab) [address] [place], [address], 04/10/2024 21:46:56 04/10/20 24 04/10/2024 COMPR EHENS JOAQUIM METAB OLIC PANEL A/G ratio 1.7 ratio 1.0-2. 0 Not Available [facility] (Lab) [address] [place], [address], 04/10/2024 21:46:56 04/10/20 24 04/10/2024 LIPID PANEL cholesterol 91 mg/dL 140-19 9 low NIH CORNELL NSUS RECOM MENDA TION FOR YOGI STERO L: ADULT CHILD LOW RISK: <200 <170 BORDE RLINE : <200- 239 ----- HIGH RISK: >240 >200 Not Available [facility] (Lab) [address] [place], [address], 04/10/2024 21:47:01 04/10/20 24 04/10/2024 LIPID PANEL triglyceride s 60 mg/dL 0-150 [facility] CORNELL NSUS REPOR T RECOM MENDA TION FOR TRIGL YCERI VIVIANA: ADULT CHILD LOW RISK: <150 ----- BODER LINE: 150-1 99 ----- HIGH RISK: >200 ----- Not Available [facility] (Lab) [address] [place], [address], 04/10/2024 21:47:01 04/10/20 24 04/10/2024 LIPID PANEL HDL cholesterol 41 mg/dL 40- Not Available [facility] (Lab) [address] [place], [address], 04/10/2024 21:47:01 04/10/20 24 04/10/2024 LIPID PANEL LDL cholesterol, calculated 38 mg/dL 0-130 [facility] CORNELL NSUS REPOR T RECOM MENDA TIONS FOR LDL: ADULT CHILD LOW RISK <130 <110 (OPTI MAL LDL) <100 ----- BORDE RLINE : 130-1 59 ----- HIGH RISK: >160 >130 A TRIGL YCERI DE RESUL T >400 INVAL IDATE S THE CALCU LATIO N FOR LDL FRACT IONAT ION - THE LDL RESUL T WILL NOT BE REPOR GISSEL. Not Available [facility] (Lab) [address] [place], [address], 04/10/2024 21:47:01 04/10/20 24 04/10/2024 MAGNE SIUM magnesium 2.4 mg/dL 1.6-2. 3 high Not Available [facility] (Lab) [address] [place], [address], 04/10/2024 21:47:06 04/10/20 24 04/10/2024 VITAM IN D 25-HY DROXY vd25oh 43.1 NG/mL 30-100 Vitam in D Statu s: Defic ient: <20 ng/mL Insuf ficie nt: 20-29 ng/mL Suffi cient : 30-10 0 ng/mL Not Available [facility] (Lab) [address] [place], [address], 04/10/2024 21:49:37 04/10/20 24 04/10/2024 TSH W/REF GISSEL FT4 TSH with reflex free T4 0.676 uIU/m L 0.465- 4.680 Not Available [facility] (Lab) [address] [place], [address], 04/10/2024 22:09:25 04/10/20 24 04/10/2024 PSA SCREE N PSA medicare screen 0.56 NG/mL 0.00-4 .00 Not Available [facility] (Lab) [address] [place], [address], 04/10/2024 22:09:31 04/10/20 24 04/10/2024 HEMOG LOBIN A1C HA1C 6.3 % 4.0-6. 0 high Diabe emmy Scree karena Crite roberta: <5.7% Consi stent with absen ce of diabe emmy 5.7-6 .4% Consi stent with incre ased risk for diabe emmy (pred iabet es) >OR=6 .5% Consi stent with diabe emmy REFER ENCE: Diabe emmy Care 2015, 39(Brown ppl.1 ):s13 -s22 Not Available [facility] (Lab) [address] [place], [address], 04/10/2024 22:49:32 08/26/20 24 04/10/2024 VITAM IN B12 (ILANA JOSE ) vb12 377 pg/mL 239-93 1 Not Available [facility] (Lab) [address] [place], [address], 04/10/2024 22:50:38 04/10/20 24 04/10/2024 FOLAT E, SERUM /PLAS MA folate 8.17 NG/mL 2.76-2 0.0 Not Available [facility] (Lab) [address] [place], [address], 04/10/2024 22:50:39 04/10/20 24 04/10/2024 TEST NOT PERFO RMED test not performed SEE COMMEN T UNABL E TO PERFO RM URINA LYSIS TESIN G AND MICRO ALBUM IN TESTI NG SINCE NO URINE SPECI MEN SENT TO THE LAB Not Available [facility] (Lab) [address] [place], [address], 04/10/2024 22:55:24 07/31/20 24 07/31/2024 CBC/C OMPLE TE BLD COUNT W/DIF F white blood cells 11.9 x10'3 /uL 4.2-10 .8 high Not Available [facility] (Lab) [address] [place], [address], 07/31/2024 19:06:07 07/31/20 24 07/31/2024 CBC/C OMPLE TE BLD COUNT W/DIF F red blood cells 3.98 x10'6 /uL 4.10-5 .80 low Not Available [facility] (Lab) [address] [place], [address], 07/31/2024 19:06:07 07/31/20 24 07/31/2024 CBC/C OMPLE TE BLD COUNT W/DIF F hemoglobin 12.7 g/dL 13.2-1 7.0 low Not Available [facility] (Lab) [address] [place], [address], 07/31/2024 19:06:07 07/31/20 24 07/31/2024 CBC/C OMPLE TE BLD COUNT W/DIF F hematocrit 38.3 % 39.3-5 0.0 low Not Available [facility] (Lab) [address] [place], [address], 07/31/2024 19:06:07 07/31/20 24 07/31/2024 CBC/C OMPLE TE BLD COUNT W/DIF F mean red cell volume 96.2 fL 80.0-9 7.0 Not Available [facility] (Lab) [address] [place], [address], 07/31/2024 19:06:07 07/31/20 24 07/31/2024 CBC/C OMPLE TE BLD COUNT W/DIF F mean red cell hemoglobin 31.9 pg 27.0-3 3.0 Not Available [facility] (Lab) [address] [place], [address], 07/31/2024 19:06:07 07/31/20 24 07/31/2024 CBC/C OMPLE TE BLD COUNT W/DIF F mean RBC HGB concentratio n 33.2 g/dL 31.0-3 6.0 Not Available [facility] (Lab) [address] [place], [address], 07/31/2024 19:06:07 07/31/20 24 07/31/2024 CBC/C OMPLE TE BLD COUNT W/DIF F red cell distribution width 13.5 % 11.8-1 5.5 Not Available [facility] (Lab) [address] [place], [address], 07/31/2024 19:06:07 07/31/20 24 07/31/2024 CBC/C OMPLE TE BLD COUNT W/DIF F platelets 190 x10'3 /uL 150-40 0 Not Available [facility] (Lab) [address] [place], [address], 07/31/2024 19:06:07 07/31/20 24 07/31/2024 CBC/C OMPLE TE BLD COUNT W/DIF F mean platelet volume 11.6 fL 9.0-12 .4 Not Available [facility] (Lab) [address] [place], [address], 07/31/2024 19:06:07 07/31/20 24 07/31/2024 CBC/C OMPLE TE BLD COUNT W/DIF F neutrophils 74.1 % 39.0-7 2.0 high Not Available [facility] (Lab) [address] [place], [address], 07/31/2024 19:06:07 07/31/20 24 07/31/2024 CBC/C OMPLE TE BLD COUNT W/DIF F lymphocytes 17.7 % 16.0-4 7.0 Not Available [facility] (Lab) [address] [place], [address], 07/31/2024 19:06:07 07/31/20 24 07/31/2024 CBC/C OMPLE TE BLD COUNT W/DIF F monocytes 6.1 % 5.0-12 .0 Not Available [facility] (Lab) [address] [place], [address], 07/31/2024 19:06:07 07/31/20 24 07/31/2024 CBC/C OMPLE TE BLD COUNT W/DIF F eosinophils 1.3 % 1.0-7. 0 Not Available [facility] (Lab) [address] [place], [address], 07/31/2024 19:06:07 07/31/20 24 07/31/2024 CBC/C OMPLE TE BLD COUNT W/DIF F basophils 0.4 % 0.0-2. 0 Not Available [facility] (Lab) [address] [place], [address], 07/31/2024 19:06:07 07/31/2007/31/2024 CBC/C OMPLE TE BLD COUNT W/DIF F immature granulocytes 0.4 % 0.00-0 .50 Not Available [facility] (Lab) [address] [facility], [address], 07/31/2024 19:06:07 07/31/20 24 07/31/2024 CBC/C OMPLE TE BLD COUNT W/DIF F neutrophils, absolute count 8.80 x10'3 /uL 1.5-8. 0 high Not Available [facility] (Lab) [address] [place], [address], 07/31/2024 19:06:07 07/31/20 24 07/31/2024 CBC/C OMPLE TE BLD COUNT W/DIF F lymphocytes, absolute count 2.10 x10'3 /uL 1.07-3 .43 Not Available [facility] (Lab) [address] [place], [address], 07/31/2024 19:06:07 07/31/20 24 07/31/2024 CBC/C OMPLE TE BLD COUNT W/DIF F monocytes, absolute count 0.72 x10'3 /uL 0.29-0 .99 Not Available [facility] (Lab) [address] [place], [address], 07/31/2024 19:06:07 07/31/20 24 07/31/2024 CBC/C OMPLE TE BLD COUNT W/DIF F eosinophils, absolute count 0.15 x10'3 /uL 0.02-0 .53 Not Available [facility] (Lab) [address] [place], [address], 07/31/2024 19:06:07 07/31/20 24 07/31/2024 CBC/C OMPLE TE BLD COUNT W/DIF F basophils, absolute count 0.05 x10'3 /uL 0.01-0 .08 Not Available [facility] (Lab) [address] [place], [address], 07/31/2024 19:06:07 07/31/20 24 07/31/2024 CBC/C OMPLE TE BLD COUNT W/DIF F immature granulocytes ,absolute 0.05 x10'3 /uL 0.00-0 .05 Not Available [facility] (Lab) [address] [place], [address], 07/31/2024 19:06:07 07/31/20 24 07/31/2024 CBC/C OMPLE TE BLD COUNT W/DIF F nucleated red blood cells 0.0 % -0 Not Available [facility] (Lab) [address] [place], [address], 07/31/2024 19:06:07 07/31/20 24 07/31/2024 CBC/C OMPLE TE BLD COUNT W/DIF F NRBC# 0.00 x10'3 /uL Not Available [facility] (Lab) [address] [place], [address], 07/31/2024 19:06:07 07/31/20 24 07/31/2024 HEMOG LOBIN A1C HA1C 6.1 % 4.0-6. 0 high Diabe emmy Scree karena Crite roberta: <5.7% Consi stent with absen ce of diabe emmy 5.7-6 .4% Consi stent with incre ased risk for diabe emmy (pred iabet es) >OR=6 .5% Consi stent with diabe emmy REFER ENCE: Diabe emmy Care 2016, 39(Brown ppl.1 ):s13 -s22 Not Available [facility] (Lab) [address] [place], [address], 07/31/2024 20:59:36 11/04/19 25 11/03/2024 CBC/C OMPLE TE BLD COUNT W/DIF F white blood cells 7.2 x10'3 /uL 4.2-10 .8 Not Available [facility] (Lab) [address] [place], [address], 11/03/2024 13:29:30 11/04/19 25 11/03/2024 CBC/C OMPLE TE BLD COUNT W/DIF F red blood cells 4.56 x10'6 /uL 4.10-5 .80 Not Available [facility] (Lab) [address] [place], [address], 11/03/2024 13:29:30 11/04/19 25 11/03/2024 CBC/C OMPLE TE BLD COUNT W/DIF F hemoglobin 14.5 g/dL 13.2-1 7.0 Not Available [facility] (Lab) [address] [place], [address], 11/03/2024 13:29:30 11/04/19 25 11/03/2024 CBC/C OMPLE TE BLD COUNT W/DIF F hematocrit 43.0 % 39.3-5 0.0 Not Available [facility] (Lab) [address] [place], [address], 11/03/2024 13:29:30 11/04/19 25 11/03/2024 CBC/C OMPLE TE BLD COUNT W/DIF F mean red cell volume 94.3 fL 80.0-9 7.0 Not Available [facility] (Lab) [address] [place], [address], 11/03/2024 13:29:30 11/04/19 25 11/03/2024 CBC/C OMPLE TE BLD COUNT W/DIF F mean red cell hemoglobin 31.8 pg 27.0-3 3.0 Not Available [facility] (Lab) [address] [place], [address], 11/03/2024 13:29:30 11/04/19 25 11/03/2024 CBC/C OMPLE TE BLD COUNT W/DIF F mean RBC HGB concentratio n 33.7 g/dL 31.0-3 6.0 Not Available [facility] (Lab) [address] [place], [address], 11/03/2024 13:29:30 11/04/19 25 11/03/2024 CBC/C OMPLE TE BLD COUNT W/DIF F red cell distribution width 13.2 % 11.8-1 5.5 Not Available [facility] (Lab) [address] [place], [address], 11/03/2024 13:29:30 11/04/19 25 11/03/2024 CBC/C OMPLE TE BLD COUNT W/DIF F platelets 176 x10'3 /uL 150-40 0 Not Available [facility] (Lab) [address] [place], [address], 11/03/2024 13:29:30 11/04/19 25 11/03/2024 CBC/C OMPLE TE BLD COUNT W/DIF F mean platelet volume 11.1 fL 9.0-12 .4 Not Available [facility] (Lab) [address] [place], [address], 11/03/2024 13:29:30 11/04/19 25 11/03/2024 CBC/C OMPLE TE BLD COUNT W/DIF F neutrophils 58.7 % 39.0-7 2.0 Not Available [facility] (Lab) [address] [place], [address], 11/03/2024 13:29:30 11/04/19 25 11/03/2024 CBC/C OMPLE TE BLD COUNT W/DIF F lymphocytes 26.7 % 16.0-4 7.0 Not Available [facility] (Lab) [address] [place], [address], 11/03/2024 13:29:30 11/04/19 25 11/03/2024 CBC/C OMPLE TE BLD COUNT W/DIF F monocytes 10.0 % 5.0-12 .0 Not Available [facility] (Lab) [address] [place], [address], 11/03/2024 13:29:30 11/04/19 25 11/03/2024 CBC/C OMPLE TE BLD COUNT W/DIF F eosinophils 3.5 % 1.0-7. 0 Not Available [facility] (Lab) [address] [place], [address], 11/03/2024 13:29:30 11/04/19 25 11/03/2024 CBC/C OMPLE TE BLD COUNT W/DIF F basophils 0.8 % 0.0-2. 0 Not Available [facility] (Lab) [address] [place], [address], 11/03/2024 13:29:30 11/04/19 25 11/03/2024 CBC/C OMPLE TE BLD COUNT W/DIF F immature granulocytes 0.3 % 0.00-0 .50 Not Available [facility] (Lab) [address] [place], [address], 11/03/2024 13:29:30 11/04/19 25 11/03/2024 CBC/C OMPLE TE BLD COUNT W/DIF F neutrophils, absolute count 4.25 x10'3 /uL 1.5-8. 0 Not Available [facility] (Lab) [address] [place], [address], 11/03/2024 13:29:30 11/04/19 25 11/03/2024 CBC/C OMPLE TE BLD COUNT W/DIF F lymphocytes, absolute count 1.93 x10'3 /uL 1.07-3 .43 Not Available [facility] (Lab) [address] [place], [address], 11/03/2024 13:29:30 11/04/19 25 11/03/2024 CBC/C OMPLE TE BLD COUNT W/DIF F monocytes, absolute count 0.72 x10'3 /uL 0.29-0 .99 Not Available [facility] (Lab) [address] [place], [address], 11/03/2024 13:29:30 11/04/19 25 11/03/2024 CBC/C OMPLE TE BLD COUNT W/DIF F eosinophils, absolute count 0.25 x10'3 /uL 0.02-0 .53 Not Available [facility] (Lab) [address] [place], [address], 11/03/2024 13:29:30 11/04/19 25 11/03/2024 CBC/C OMPLE TE BLD COUNT W/DIF F basophils, absolute count 0.06 x10'3 /uL 0.01-0 .08 Not Available [facility] (Lab) [address] [place], [address], 11/03/2024 13:29:30 11/04/19 25 11/03/2024 CBC/C OMPLE TE BLD COUNT W/DIF F immature granulocytes ,absolute 0.02 x10'3 /uL 0.00-0 .05 Not Available [facility] (Lab) [address] [place], [address], 11/03/2024 13:29:30 11/04/19 25 11/03/2024 CBC/C OMPLE TE BLD COUNT W/DIF F nucleated red blood cells 0.0 % -0 Not Available [facility] (Lab) [address] [place], [address], 11/03/2024 13:29:30 11/04/19 25 11/03/2024 CBC/C OMPLE TE BLD COUNT W/DIF F NRBC# 0.00 x10'3 /uL Not Available [facility] (Lab) [address] [place], [address], 11/03/2024 13:29:30 11/04/19 25 11/03/2024 HEMOG LOBIN A1C HA1C 6.5 % 4.0-6. 0 high Diabe emmy Scree karena Crite roberta: <5.7% Consi stent with absen ce of diabe emmy 5.7-6 .4% Consi stent with incre ased risk for diabe emmy (pred iabet es) >OR=6 .5% Consi stent with diabe emmy REFER ENCE: Diabe emmy Care 2016, 39(Brown ppl.1 ):s13 -s22 Not Available [facility] (Lab) [address] [place], [address], 11/03/2024 16:15:33 Result Notes None recorded. Problems Name Problem SNOMED Code Status Onset Date Resolution Date Notes Provider Name and Address Organization Details Recorded Time Injury of foot 978775144 Active 2020 Not Available [facility] 3 11:48:10 Mixed hyperchole sterolemia and hypertrigl yceridemia 635807395 Active 2019 Not Available [facility] 3 11:48:10 Folliculit is 98611205 Active 2021 Not Available [facility] 3 11:48:10 Pain of right shoulder joint 5208182247962 9100 Active 2020 Not Available [facility] 3 11:48:10 Contact dermatitis caused by urushiol from [place] poison hcarley 504166350 Active 2021 Not Available [facility] 3 11:48:10 Partial thickness rotator cuff tear 956539766 Active 2019 Not Available [facility] 3 11:48:10 Sliding hiatus hernia 478819970 Active 2020 Not Available [facility] 3 11:48:10 Allergic contact dermatitis 729701725 Active 2021 Not Available [facility] 3 11:48:10 Benign prostatic hyperplasi a without outflow obstructio n 452009503 Active 2020 Not Available [facility] 3 11:48:10 Degenerati on of lumbar interverte bral disc 90729968 Active 2020 Not Available [facility] 3 11:48:10 Gastroesop hageal reflux disease without esophagiti s 876521553 Active 2019 Not Available [facility] 3 11:48:10 Chronic low back pain 153008358 Active 2020 Not Available [facility] 3 11:48:10 History of SARS-CoV-2 3669712459819 39404 Active 2020 Not Available [facility] 3 11:48:10 Type 2 diabetes mellitus without complicati on 654636730 Active 2019 Not Available [facility] 3 11:48:10 Bronchitis 46006388 Active 2021 Not Available [facility] 3 11:48:10 Vitamin D deficiency 38806215 Active 2019 Not Available [facility] 3 11:48:10 Hypertensi ve disorder 80489845 Active 2019 Not Available [facility] 3 11:48:10 Obesity 613224955 Active 2019 Not Available [facility] 3 11:48:10 Diabetic peripheral neuropathy 263502859 Active 2020 Not Available [facility] 3 11:48:10 Chronic kidney disease stage 3 299839666 Active 2019 Not Available [facility] 3 11:48:10 Cardiovasc ular stress test abnormal 413553847 Active 2021 Not Available [facility] 3 11:48:10 Coronary atheroscle rosis 767767857 Active Not Available [facility] 3 11:48:10 Uncontroll ed type 2 diabetes mellitus 486030356 Active 2019 Not Available [facility] 3 11:48:10 Hyperlipid emia 34245621 Active 2019 Not Available [facility] 3 11:48:10 Dyspnea on exertion 20791642 Active 2019 Not Available [facility] 3 11:48:10 Diabetes mellitus 59977768 Active 2019 Not Available [facility] 3 11:48:10 Obstructiv e sleep apnea syndrome 30591211 Active 2020 Not Available [facility] 3 11:48:10 Chronic idiopathic constipati on 50879817 Active 2019 Not Available [facility] 3 11:48:10 Fatigue 54809743 Active 2021 Not Available [facility] 3 11:48:10 Dystrophia unguium 46329818 Active 2020 Not Available [facility] 3 11:48:10 Erectile dysfunctio n 721142379 Active 2022 Not Available [facility] 3 11:48:10 Contact dermatitis 24517404 Active 2022 Not Available [facility] 3 11:48:10 COVID-19 061237805 Active 2023 Mushtaq Cox MD [address], [address], [place], [address] , [facility] [employer] 4 15:19:42 Roblero's neuroma of right foot 2028312528229 08 Active 2023 Yazan Barry DPM [address], [address], [place], [address] , [facility] [employer] 4 14:32:18 Roblero's neuroma of left foot 4543409280601 05 Active 2023 Yazan Barry DPM [address], [address], [place], [address] , [facility] [employer] [facility] 4 14:32:22 Claustroph obia 60577757 Active 2023 Mushtaq Cox MD [address], [address], [place], [address] , [employer] 4 17:02:47 Leukocytos is 468914802 Active 2023 Mushtaq Cox MD [address], [place], [address] , [employer] 4 12:05:48 History of operative procedure on lumbar spinal structure 792273451 Active 2023 Mushtaq Cox MD [address], [place], [address] , [employer] 4 10:01:49 Notes:Some problems listed i n Documents: #[id number], #[id number] could not be added to this patient's chart. Please review these documents and add these problems to the patient's chart manually as needed. Problem Notes None recorded. Procedures Surgical History Date Name Laterality Status Provider Name and Address Organization Details Recorded Time 4 Nail Debridement completed Yazan Barry DPM [address], [place], [address], [employer] 08/30/2023 14:29:10 4 Blank Procedure Note completed Yazan Barry DPM [address], [place], [address], [employer] 08/30/2023 14:30:56 Imaging Results None recorded. Procedure Notes None recorded. Medical Equipment None Reported. Allergies No known drug allergies Medications Name Sig Start Date Stop Date Status Note LastModified by Organization Details LastModified Time Prescripti on - Renewal 03/31 completed Not Available Not Available Not Available [employer] CGM Ok for full supplies and generic. 2022 active Not Available Not Available Not Avai lable cyclobenza steven 10 mg tablet TAKE 1 TABLET BY MOUTH EVERY 12 HOURS NEEDED active Not Available Not Available No t Available atorvastat in 40 mg tablet TAKE 1 TABLET BY MOUTH EVERY DAY AT BEDTIME 2024 active Not Available Not Available Not Avai lable prednisone 10 mg tablet active Not Available Not Available Not Available doxycyclin e hyclate 100 mg capsule Take 1 capsule twice a day by oral route for 7 days. active Not Available Not Available No t Available atorvastat in 20 mg tablet TAKE 1 TABLET BY MOUTH ONCE A DAY 01/28 completed Not Available Not Available Not Available clindamyci n HCl 300 mg capsule TK 1 C PO Q 6 H UNTIL GONE 05/06 completed Not Available Not Available Not Available atorvastat in 10 mg tablet TK 1 T PO QD HS active Not Available Not Available No t Available azithromyc in 250 mg tablet TK 2 TS PO ON DAY 1, THEN TK 1 T PO D FOR 4 DAYS 10/28 completed Not Available Not Available Not Available tizanidine 4 mg tablet TAKE 1 TABLET BY MOUTH THREE TIMES DAILY NEEDED FOR MUSCLE SPASMS active Not Available Not Available No t Available benzonatat e 200 mg capsule Take 1 capsule every 8 hours by oral route as needed for 7 days. 10/28 completed Not Available Not Available Not Available hydrocodon e 5 mg-acetami nophen 325 mg tablet TAKE 1 TABLET BY MOUTH TWICE DAILY NEEDED active Not Available Not Available No t Available meloxicam 15 mg tablet active Not Available Not Available Not Available prednisone 20 mg tablet TAKE 2 TABLETS BY MOUTH DAILY FOR 5 DAYS 01/25 completed Not Available Not Available Not Available clopidogre l 75 mg tablet TAKE 1 TABLET BY MOUTH EVERY DAY active Not Available Not Available No t Available hydrocodon e 10 mg-acetami nophen 325 mg tablet TAKE 1 TABLET BY MOUTH DAILY FOR 15 DAYS 05/01 completed Not Available Not Available Not Available omeprazole 40 mg capsule,de layed release TK 1 C PO QD IN THE MORNING, 30 mins before breakfast . 02/21 completed Not Available Not Available Not Available tramadol 50 mg tablet active Not Available Not Available Not Available triamcinol one acetonide 0.1 % topical cream APPLY THIN LAYER TOPICALLY TO THE AFFECTED AREA TWICE DAILY active Not Available Not Available No t Available glimepirid e 2 mg tablet TAKE 1 TABLET BY MOUTH EVERY MORNING WITH FIRST MEAL OF THE DAY 2024 active Not Available Not Available Not Avai lable alprazolam 0.5 mg tablet TAKE 1 TABLET BY MOUTH NEEDED FOR MRI OF BACK 05/01 completed Not Available Not Available Not Available famotidine 20 mg tablet TAKE 2 TABLETS EVERY NIGHT FOR STOMACH ACID OR REFLUX active Not Available Not Available No t Available amitriptyl ine 25 mg tablet TAKE 1 TABLET BY MOUTH EVERY DAY AT BEDTIME 04/04 completed Not Available Not Available Not Available methocarba mol 750 mg tablet TAKE 1 TABLET BY MOUTH THREE TIMES DAILY NEEDED FOR MUSCLE SPASM 12/19 completed Not Available Not Available Not Available pravastati n 10 mg tablet TK 1 T PO QD active Not Available Not Available No t Available baclofen 10 mg tablet TAKE 1 TABLET BY MOUTH EVERY 12 HOURS NEEDED 03/31 completed Not Available Not Available Not Available dexamethas one 2 mg tablet TK 1 T PO Q 12 H FOR 7 DAYS UTD active Not Available Not Available No t Available hydrocodon e 7.5 mg-acetami nophen 325 mg tablet TK 1 TO 2 TS PO Q 4 TO 6 H PRN P 05/06 completed Not Available Not Available Not Available pantoprazo le 40 mg tablet,del ayed release TAKE 1 TABLET EVERY DAY DIRECTED QAM 2024 active Not Available Not Available Not Avai lable lisinopril 10 mg tablet TAKE 1/2 TABLET BY MOUTH AT BEDTIME 06/11 completed Not Available Not Available Not Available docusate sodium 100 mg capsule Take 1 capsule every 12 hours by oral route as needed for 30 days. active Not Available Not Available No t Available gabapentin 300 mg capsule TAKE 1 CAPSULE EVERY 8 HOURS DIRECTED (DOSE INCREASE, D/C PREGABALI N) active Not Available Not Available No t Available omeprazole 20 mg capsule,de layed release TK 1 C PO QD IN THE MORNING active Not Available Not Available No t Available aspirin 81 mg chewable tablet TAKE 1 TABLET BY MOUTH EVERY DAY 10/31 completed Not Available Not Available Not Available diclofenac sodium 75 mg tablet,del ayed release TAKE 1 TABLET EVERY 12 HOURS WITH FOOD NEEDED FOR PAIN 2024 active Not Available Not Available Not Avai lable zinc gluconate 50 mg tablet TK 1 T PO BID UTD FOR 30 DAYS active Not Available Not Available No t Available hydroxyzin e HCl 25 mg tablet TAKE 1 TABLET EVERY 6 TO 8 HOURS NEEDED FOR 5 DAYS active Not Available Not Available No t Available zinc 50 mg tablet Take 1 tablet twice a day by oral route as directed for 30 days. 02/21 completed Not Available Not Available Not Available alcohol swabs CHECK ACCUCHECK 2 TO 4 TIMES D UTD active Not Available Not Available No t Available lisinopril 5 mg tablet TAKE 1 TABLET BY MOUTH EVERY DAY DIRECTED 2024 active Not Available Not Available Not Avai lable mupirocin 2 % topical ointment PLACE SMALL AMOUNT IN EACH NOSTRIL WITH A QTIP TWICE DAILY FOR 5 DAYS BEFORE SURGERY active Not Available Not Available No t Available gabapentin 100 mg capsule TAKE 2 CAPSULES BY MOUTH THREE TIMES DAILY DIRECTED active Not Available Not Available No t Available ergocalcif garrett (vitamin D2) 1,250 mcg (50,000 unit) capsule TAKE 1 CAPSULE EVERY WEEK DIRECTED 2023 active Not Available Not Available Not Avai lable lisinopril 10 mg-hydroch lorothiazi de 12.5 mg tablet Take 1 tablet every day by oral route in the morning for 90 days. 01/28 completed Not Available Not Available Not Available polyethyle ne glycol 3350 17 gram/dose oral powder MIX AND TAKE 17 GRAMS BY MOUTH EVERY DAY DIRECTED active Not Available Not Available No t Available scopolamin e 1 mg over 3 days transderma l patch active Not Available Not Available Not Available methylpred nisolone 4 mg tablets in a dose pack TAKE DIRECTED ON PACKAGE 01/25 completed Not Available Not Available Not Available albuterol sulfate HFA 90 mcg/actuat ion aerosol inhaler INHALE 2-4 PUFFS PO Q 4 H PRN 10/31 completed Not Available Not Available Not Available metformin ER 500 mg tablet,ext ended release 24 hr TAKE 1 TABLET BY MOUTH TWICE DAILY WITH MEALS active Not Available Not Available No t Available calcitriol 0.25 mcg capsule active Not Available Not Available Not Available naproxen 500 mg tablet TK 1 T PO Q 12 H WF 05/06 completed Not Available Not Available Not Available nabumetone 500 mg tablet TAKE 2 TABLETS BY MOUTH EVERY DAY 01/28 completed Not Available Not Available Not Available oxycodone 5 mg tablet TK ONE T PO Q 4 H PRF PAIN active Not Available Not Available No t Available Adult Low Dose Aspirin 81 mg tablet,del ayed release Take 1 tablet every day by oral route with meals for 90 days. active Not Available Not Available No t Available Blood Glucose Test strips use to test 3 times daily active Not Available Not Available No t Available ezetimibe 10 mg tablet TAKE 1 TABLET BY MOUTH DAILY QAM 2024 active Not Available Not Available Not Avai lable tadalafil 10 mg tablet TAKE 1 TABLET BY MOUTH EVERY DAY 10/28 completed Not Available Not Available Not Available tadalafil 20 mg tablet Take 1 tablet as needed by oral route as directed for 30 days. 2023 active Not Available Not Available Not Avai lable Flovent HFA 110 mcg/actuat ion aerosol inhaler Inhale 1 puff twice a day by inhalatio n route as directed for 30 days. active Not Available Not Available No t Available pregabalin 50 mg capsule TAKE 1 CAPSULE BY MOUTH EVERY 12 HOURS DIRECTED active Not Available Not Available No t Available pregabalin 75 mg capsule TAKE 1 CAPSULE BY MOUTH EVERY 12 HOURS DIRECTED 08/26 completed Not Available Not Available Not Available chlorhexid ine gluconate 0.12 % mouthwash USE DIRECTED BID 05/06 completed Not Available Not Available Not Available metformin ER 500 mg 24 hr tablet,ext ended release (gastric retention) Take 1 tablet twice a day by oral route with meals for 30 days. 01/28 completed Not Available Not Available Not Available Januvia 25 mg tablet TAKE 1 TABLET BY MOUTH EVERY MORNING 10/28 completed Not Available Not Available Not Available hydrochlor othiazide 12.5 mg tablet TAKE 1 TABLET BY MOUTH EVERY MORNING 2024 active Not Available Not Available Not Avai lable Lantus Solostar U-100 Insulin 100 unit/mL (3 mL) subcutaneo us pen ADMINISTE R 33 UNITS UNDER THE SKIN EVERY DAY TWICE A DAY 2024 active Not Available Not Available Not Avai lable oxycodone 10 mg tablet active Not Available Not Available Not Available Solu-Medro l (PF) 125 mg/2 mL solution for injection Take 100 mg by injection route for 1 day. 05/12 completed 1.8 mL given Not Available Not Available Not Available Tradjenta 5 mg tablet TAKE 1 TABLET BY MOUTH EVERY DAY IN THE MORNING 2024 active Not Available Not Available Not Avai lable Vascepa 1 gram capsule Take 2 capsules twice a day by oral route after meal(s) for 90 days. 2024 active Not Available Not Available Not Avai lable Victoza 3-Kuldip 0.6 mg/0.1 mL (18 mg/3 mL) subcutaneo us pen injector INJECT 1.8 MG UNDER THE SKIN EVERY DAY 01/27 completed Not Available Not Available Not Available Farxiga 10 mg tablet TAKE 1 TABLET BY MOUTH EVERY DAY IN THE MORNING 04/10 completed Not Available Not Available Not Available Jardiance 25 mg tablet TAKE 1 TABLET BY MOUTH EVERY MORNING 2024 active Not Available Not Available Not Avai lable naloxone 4 mg/actuati on nasal spray CALL 911. SPR CONTENTS OF ONE SPRAYER (0.1ML) INTO ONE NOSTRIL. REPEAT IN 2-3 MIN IF SYMPTOMS OF OPIOID EMERGENCY PERSIST, ALTERNATE NOSTRILS active Not Available Not Available No t Available TechLITE Pen Needle 32 gauge x 32 USE 2-3 TIMES DAILY DIRECTED active Not Available Not Available No t Available Soliqua 100/33 100 unit-33 mcg/mL subcutaneo us insulin pen ADMINISTE R 50 UNITS UNDER THE SKIN EVERY DAY DIRECTED 12/19 completed Not Available Not Available Not Available Ozempic 0.25 mg or 0.5 mg (2 mg/1.5 mL) subcutaneo us pen injector Inject 0.5 mg every week by subcutane ous route as directed for 90 days. 07/26 completed Not Available Not Available Not Available Dexcom G6 Sensor device active Not Available Not Available Not Available Dexcom G6 Scale Model Maker active Not Available Not Available Not Available Dexcom G6 Transmitte r device active Not Available Not Available Not Available Accu-Chek Fastclix Lancet Drum CKECK ACCUCHECK 2 TO 4 TIMES PER DAY DIRECTED active Not Available Not Available No t Available Xarelto 2.5 mg tablet TAKE 1 TABLET BY MOUTH TWICE DAILY. FOLLOW UP active Not Available Not Available No t Available OneTouch Delica Plus Lancet 33 gauge USE TO TEST BLOOD SUGAR THREE TIMES DAILY active Not Available Not Available No t Available OneTouch Verio Reflect Meter USE TO TEST BLOOD SUGAR THREE TIMES DAILY active Not Available Not Available No t Available Flucelvax Quad (PF) 60 mcg (15 mcg x 4)/0.5 mL IM syringe ADM 0.5ML IM UTD 11/26 completed Not Available Not Available Not Available Ozempic 1 mg/dose (4 mg/3 mL) subcutaneo us pen injector INJECT 1 MG UNDER THE SKIN EVERY WEEK 10/31 completed Not Available Not Available Not Available Kerendia 10 mg tablet TAKE 1 TABLET BY MOUTH EVERY DAY 03/31 completed Not Available Not Available Not Available Kerendia 20 mg tablet TAKE 1 TABLET BY MOUTH EVERY DAY active Not Available Not Available No t Available Semglee (insulin glargine-y fgn) Pen 100 unit/mL (3 mL) subcutaneo us 03/31 completed Not Available Not Available Not Available Paxlovid 300 mg (150 mg x 2)-100 mg tablets in a dose pack TAKE 1 DOSE PACK TWICE DAILY BY MOUTH DIRECTED FOR 5 DAYS active Not Available Not Available No t Available Ozempic 2 mg/dose (8 mg/3 mL) subcutaneo us pen injector Inject 2 mg every week by subcutane ous route as directed. 2024 active Not Available Not Available Not Avai lable Ozempic 0.25 mg or 0.5 mg (2 mg/3 mL) subcutaneo us pen injector 07/26 completed Not Available Not Available Not Available Vitals Date Recorded Body height Body mass index (BMI) Body weight Body temperature Heart rate Oxygen saturation Oxygen saturation in Arterial blood by Pulse oximetry Systolic blood pressure Diastolic blood pressure Provider Name and Address Organization Details Last Updated DateTime 4 170.18 cm 33.5 kg/m2 19925.4 1 g 98.5 [degF] 72 /min 99 % 99 % 138 mm[Hg] 72 mm[Hg] Payton Wilson RN [facility] 4 11:57:02 Date Recorded Body height Body mass index (BMI) Body weight Body temperature Oxygen saturation Oxygen saturation in Arterial blood by Pulse oximetry Heart rate Systolic blood pressure Diastolic blood pressure Provider Name and Address Organization Details Last Updated DateTime 4 175.26 cm 31.4 kg/m2 83107.6 8 g 97.8 [degF] 99 % 99 % 66 /min 126 mm[Hg] 80 mm[Hg] Laurita Izquierdo RN [facility] 4 09:37:55 Date Recorded Body height Body temperature Body mass index (BMI) Body weight Heart rate Oxygen saturation Oxygen saturation in Arterial blood by Pulse oximetry Systolic blood pressure Diastolic blood pressure Provider Name and Address Organization Details Last Updated DateTime 5 175.26 cm 97.9 [degF] 31.8 kg/m2 47435.1 6 g 58 /min 97 % 97 % 132 mm[Hg] 80 mm[Hg] Laurita Izquierdo RN [place] [facility] [employer] 5 12:04:11 Social History Question Answer Notes LastModified by Organizat ion Details LastModified Time Tobacco Smoking Status Former Smoker Quit 1994 Not Available [employer] 10/14/2022 00:40:22 Do You Have An Advance Directive? No MIGRATION.01154 46102 Information not available 10/14/2022 What Is Your Level Of Alcohol Consumption? Occasional MIGRATION.97503 61272 Information not available 10/14/2022 Do You Wear A Helmet When Biking? No MIGRATION.10450 13723 Information not available 10/14/2022 What Is Your Level Of Caffeine Consumption? Moderate MIGRATION.78609 18079 Information not available 10/14/2022 How Much Tobacco Do You Chew? None MIGRATION.04393 65177 Information not available 10/14/2022 In The 14 Days Before Symptom Onset, Have You Had Close Contact With A Laboratory-confir med COVID-19 While That Case Was Ill? No MIGRATION.44336 68481 Information not available 10/14/2022 In The 14 Days Before Symptom Onset, Have You Had Close Contact With A Person Who Is Under Investigation For COVID-19 While That Person Was Ill? No MIGRATION.09752 99907 Information not available 10/14/2022 What Type Of Diet Are You Following? REGULAR MIGRATION.38725 04720 Information not available 10/14/2022 Which Illicit Or Recreational Drugs Have You Used? None MIGRATION.81690 47651 Information not available 10/14/2022 Do You Or Have You Ever Used E-cigarettes Or Vape? Never Used Electronic Cigarettes MIGRATION.05989 32293 Information not available 10/14/2022 Do You Have An Electrostatic Air Filter? No MIGRATION.13090 03122 Information not available 10/14/2022 What Is Your Occupation? Retired MIGRATION.52337 90110 Information not available 10/14/2022 Have There Been Any Changes To Your Family Or Social Situation? No MIGRATION.02261 68607 Information not available 10/14/2022 Are There Any Guns Present In Your Home? No MIGRATION.64410 20235 Information not available 10/14/2022 Do You Have A Humidifier? Yes MIGRATION.13710 58072 Information not available 10/14/2022 Do You Use Insect Repellent Routinely? No MIGRATION.35716 58949 Information not available 10/14/2022 Do You Have Moisture Problems In Your Home? No MIGRATION.03508 38771 Information not available 10/14/2022 What Was The Date Of Your Most Recent Tobacco Screening? 06/19/2021 MIGRATION.98440 07676 Information not available 10/14/2022 How Many Children Do You Have? 2 MIGRATION.09747 91864 Information not available 10/14/2022 Have You Ever Been Counseled For Unhealthy Alcohol Use? No MIGRATION.25715 10705 Information not available 10/14/2022 Do You Have Any Pets? Yes MIGRATION.03313 82629 Information not available 10/14/2022 Do You Use Your Seat Belt Or Car Seat Routinely? Yes MIGRATION.84207 99931 Information not available 10/14/2022 Do You Have Smoke And Carbon Monoxide Detectors In Your Home? Yes MIGRATION.16402 94762 Information not available 10/14/2022 Are You Passively Exposed To Smoke? No MIGRATION.09543 96926 Information not available 10/14/2022 Do You Or Have You Ever Used Smokeless Tobacco? Never Used Smokeless Tobacco MIGRATION.18727 19506 Information not available 10/14/2022 Are There Any Smokers In Your House? No MIGRATION.67652 24053 Information not available 10/14/2022 How Much Tobacco Do You Smoke? 1 PPD MIGRATION.61902 29117 Information not available 10/14/2022 Do You Participate In Social Media? No MIGRATION.59948 97877 Information not available 10/14/2022 Do You Feel Stressed (tense, Restless, Nervous, Or Anxious, Or Unable To Sleep At Night)? [id number] MIGRATION.26572 00790 Information not available 10/14/2022 Do You Use Any Illicit Or Recreational Drugs? No MIGRATION.97260 88373 Information not available 10/14/2022 Do You Use Sunscreen Routinely? No MIGRATION.93645 86568 Information not available 10/14/2022 Has Tobacco Cessation Counseling Been Provided? No MIGRATION.42320 63502 Information not available 10/14/2022 How Many Years Have You Smoked Tobacco? 10 MIGRATION.64063 59627 Information not available 10/14/2022 Have You Recently Traveled Abroad? No MIGRATION.43003 78883 Information not available 10/14/2022 Are You Currently In School? No MIGRATION.79559 17694 Information not available 10/14/2022 Do You Have Any Dietary Restrictions? No MIGRATION.85912 41436 Information not available 10/14/2022 Do You Or Have You Ever Used Any Other Forms Of Tobacco Or Nicotine? No MIGRATION.02126 15380 Information not available 10/14/2022 Sex: Male Functional Status Question Answer Note LastModified by Organizat ion Details LastModified Time What is your exercise level? None MIGRATION.[id number] Information not available 10/14/2022 Mental Status None recorded. Family History Relationship Description Onset Age of this Age Resolved Age Notes LastModified by Organization Details LastModified Time Mother Diabetes mellitus MIGRATION.024 [id number] Not available 10/14/2022 00:42:02 Mother Hypertensive disorder MIGRATION.012 [id number] Not available 10/14/2022 00:42:02 Mother Neoplasm of ovary MIGRATION.571 7455232 Not available 10/14/2022 00:42:02 Father Diabetes mellitus MIGRATION.556 [id number] Not available 10/14/2022 00:42:02 Father Heart disease MIGRATION.058 2254231 Not available 10/14/2022 00:42:02 Father Hypertensive disorder MIGRATION.369 9352787 Not available 10/14/2022 00:42:02 Medical History Condition Response ANXIETY DISORDER Y ASTHMA Y DIABETES, TYPE Y KIDNEY DISEASE Y HEART DISEASE/HEART PROBLEMS Y DEPRESSION (INCLUDING POST ) Y HEARTBURN / REFLUX Y HYPERTENSION Y HIGH CHOLESTEROL / HYPERLIPIDEMIA Y Immunizations Vaccine Type Date Status Note Provider Nam e and Address Organization Details Recorded Time Influenza, split virus, quadrivalent, PF 3 completed Elder yeh [facility] 04/26/2023 13:48:53 Tdap 4 completed Elder yeh [facility] 04/10/2024 16:42:07 Influenza, split virus, quadrivalent, preservative 0 completed Mushtaq Cox MD [address], [place], [address], [place] [facility] 03/31/2023 12:18:53 Influenza, split virus, quadrivalent, PF 2 completed Mushtaq Cox MD [address], [place], [address], [place] [facility] 03/31/2023 12:18:53 Influenza, split virus, quadrivalent, PF 1 completed Mushtaq Cox MD [address], [place], [address], [place] [facility] 03/31/2023 12:18:53 Past Encounters Encounter ID Performer Location Encounter Start Date Encounter Closed Date Diagnosis/Indication Diagnosis SNOMED-CT Code Diagnosis ICD10 Code Diagnosis Note [id number] Mushtaq Cox MD [address] [address] 11/20/2020 00:00:00 11/20/2020 18:50:54 [id number] Yazan Barry DPM _ATHENA_M IGRATION_ DEFAULT_1 _1 , 11/25/2020 00:00:00 11/25/2020 15:23:26 [id number] Mushtaq Cox MD [address] [address] 11/26/2020 00:00:00 11/26/2020 14:47:[id number] [facility]_Histor ic_Gateway [facility] [place] [address] [place] [address] 11/28/2020 00:00:00 11/28/2020 16:56:00 [id number] Mushtaq Cox MD [address] [address] 01/27/2021 00:00:00 01/28/2021 17:20:[id number] [facility]_[address] [address] 01/28/2021 00:00:00 01/28/2021 15:00:41 [id number] [facility] ic_[facility]way [facility] [place] [address] [place] [address] 02/21/2021 00:00:00 02/21/2021 16:49:04 [id number] Yazan Jhonny, DPM _ATHENA_M IGRATION_ DEFAULT_1 _1 , 02/24/2021 00:00:00 02/24/2021 15:10:54 [id number] Mushtaq Cox MD [facility] [place] [address] [facility] [place] [address] 03/24/2021 00:00:00 03/24/2021 12:06:11 [id number] [facility]_Histor ic_[facility]way [facility] [place] [address] [place] [address] 04/04/2021 00:00:00 04/04/2021 16:38:38 [id number] Mushtaq Cox MD [facility] [place] [address] [place] [address] 04/10/2021 00:00:00 04/10/2021 11:29:54 [id number] [facility]way [facility] [place] [address] [place] [address] 06/19/2021 00:00:00 06/19/2021 23:18:22 [id number] MD KARMA Valentine[facility] [place] [address] [place] [address] 06/30/2021 00:00:00 06/30/2021 10:26:47 [id number] Mushtaq Cox MD Oksana[facility] [place] [address] [place] [address] 07/07/2021 00:00:00 07/07/2021 14:31:47 [id number] Mushtaq Cox, MD [facility] [place] [address] [place] [address] 07/14/2021 00:00:00 07/15/2021 09:12:13 [id number] Jack Rowley MD S_[facility] [address] [place] [address] 07/17/2021 00:00:00 07/17/2021 10:45:31 [id number] Mushtaq Cox MD [facility] [place] [address] [place] [address] 07/22/2021 00:00:00 07/22/2021 12:37:25 [id number] Jack Rowley MD S[facility] [address] [place] [address] 07/31/2021 00:00:00 07/31/2021 11:28:46 [id number] [facility]_Histor ic_Gateway [facility] [place] [address] [place] [address] 09/19/2021 00:00:00 09/19/2021 17:04:21 [id number] Mushtaq Cox MD [facility] [place] [address] [place] [address] 10/06/2021 00:00:00 10/07/2021 09:19:06 [id number] Mushtaq Cox MD [facility] [place] [address] [place] [address] 12/26/2021 00:00:00 12/26/2021 15:01:15 [id number] Mushtaq Cox MD [facility] [place] [address] [place] [address] 01/05/2022 00:00:00 01/05/2022 14:04:34 [id number] Mushtaq Cox MD [facility] [place] [address] [place] [address] 04/13/2022 00:00:00 04/13/2022 11:40:13 [id number] Mushtaq Cox MD [facility] [place] [address] [place] [address] 05/12/2022 00:00:00 05/12/2022 16:13:42 [id number] Mushtaq Cox MD [facility] [place] [address] [place] [address] 06/11/2022 00:00:00 06/11/2022 12:54:24 [id number] Mushtaq Cox MD [facility] [place] [address] [place] [address] 07/27/2022 00:00:00 07/27/2022 12:55:24 [id number] Mushtaq Cox MD [facility] [place] [address] [facility] [address] 07/30/2022 00:00:00 07/30/2022 15:24:33 [id number] Mushtaq Cox MD [facility] [place] [address] [facility] [place] [address] 10/22/2022 11:22:35 10/22/2022 11:46:50 [id number] Mushtaq Cox MD [facility] [place] [address] [place] [address] 10/28/2022 14:58:37 10/28/2022 15:31:51 Type 2 diabetes mellitus without complication 686457112 E11.9 Hypertensive disorder 38 816422 I10 Hyperlipidemia 97101637 E78.5 Diabetic p eripheral neuropathy 705196146 E11.40 Degenerati on of lumbar intervertebral disc 62823370 M51.36 Chronic ki dney disease stage 3 986791761 N18.30 Benign pro static hyperplasia without outflow obstruction 708822157 N40.0 Obesity 861976006 E66.9 Erectile dysfunction 860 870900 F52.21 [id number] Mushtaq Cox MD [facility] [place] [address] [place] [address] 01/27/2023 13:55:14 01/27/2023 14:18:36 Degeneration of lumbar intervertebral disc 72228338 M51.36 Type 2 brenda betes mellitus without complication 095545154 E11.9 Hypertensive disorder 38 913443 I10 Hyperlipidemia 87700263 E78.5 Diabetic p eripheral neuropathy 734834689 E11.40 Chronic ki dney disease stage 3 713581605 N18.30 Benign pro static hyperplasia without outflow obstruction 091794712 N40.0 Obesity 169272993 E66.9 Erectile dysfunction 860 082361 F52.21 [id number] Mushtaq Cox MD [address] [address] 03/29/2023 10:16:10 03/29/2023 10:40:03 [id number] Mushtaq Cox MD [address] [address] 03/31/2023 11:55:45 03/31/2023 12:34:31 Type 2 diabetes mellitus without complication 912544315 E11.9 Degenerati on of lumbar intervertebral disc 78970784 M51.36 Hypertensive disorder 38 999983 I10 Hyperlipidemia 26007050 E78.5 Diabetic p eripheral neuropathy 310857007 E11.40 Chronic ki dney disease stage 3 258146306 N18.30 Benign pro static hyperplasia without outflow obstruction 080657656 N40.0 Obesity 209391936 E66.9 Erectile dysfunction 860 435978 F52.21 [id number] Mushtaq Cox MD [address] [address] 04/05/2023 11:11:02 04/05/2023 14:01:05 [id number] Mushtaq Cox MD [address] [address] 04/26/2023 12:46:30 04/26/2023 13:12:59 Type 2 diabetes mellitus without complication 270894531 E11.9 Degenerati on of lumbar intervertebral disc 07991736 M51.36 Hypertensive disorder 38 520420 I10 Hyperlipidemia 60188904 E78.5 Diabetic p eripheral neuropathy 524629417 E11.40 Chronic ki dney disease stage 3 026577491 N18.30 Benign pro static hyperplasia without outflow obstruction 882724601 N40.0 Obesity 881529017 E66.9 Erectile dysfunction 860 315520 F52.21 Administra tion of influenza vaccine 67425803 Z23 [id number] Mushtaq Cox MD [address] [address] 07/22/2023 11:04:21 07/22/2023 12:36:16 [id number] Mushtaq Cox MD [address] [address] 07/26/2023 12:26:41 07/26/2023 13:54:39 Type 2 diabetes mellitus without complication 216913571 E11.9 Degenerati on of lumbar intervertebral disc 88906840 M51.36 Hypertensive disorder 38 840179 I10 Hyperlipidemia 87077188 E78.5 Diabetic p eripheral neuropathy 736424423 E11.40 Chronic ki dney disease stage 3 236876470 N18.30 Benign pro static hyperplasia without outflow obstruction 189403293 N40.0 Obesity 929342470 E66.9 Erectile dysfunction 860 688207 F52.21 [id number] Yazan Barry DPM [facility] [place] [address] [place] [address] 08/30/2023 12:30:57 08/31/2023 12:01:44 Roblero's neuroma of right foot 2898763107 95789 G57.61 bilateral diagnostic injections performed with continued numbness with continued numbness sensationl ikely neuropathy recommend continuing gabapentin per PCP recommenda tionswill follow up with nerve and EMG testing if patient continues have this issue Roblero's n euroma of left foot 2339024726 24145 G57.62 as above Diabetic p eripheral neuropathy 970443423 E11.40 Patient educated on neuropathy , diabetes, diabetic diet, and daily foot exams. Patient is to check feet daily for new wounds, blisters, redness to prevent infection and ulceration s to the feet. Patient will return to clinic in 3 months for diabetic foot workup.Con tinue diabetic control per PCP Dystrophia unguium 73524 009 L60.3 nails debrided without incident [id number] Mushtaq Cox MD [address] [address] 10/19/2023 08:58:23 10/19/2023 11:17:51 [id number] Mushtaq Cox MD [address] [address] 11/01/2023 15:30:22 11/01/2023 16:10:16 Type 2 diabetes mellitus without complication 740302683 E11.9 Hyperlipidemia 00251320 E78.5 Chronic low back pain 27 9092630 M54.50 Vitamin D deficiency 347 19299 E55.9 Gastroesop hageal reflux disease without esophagitis 292393456 K21.9 Diabetic p eripheral neuropathy 062969100 E11.40 Hypertensive disorder 38 945029 I10 Contact dermatitis 34980 004 L25.9 Neuropathy 382717523 G62 .9 Erectile dysfunction 860 077029 F52.21 [id number] Mushtaq Cox MD [address] [address] 12/20/2023 14:55:49 12/20/2023 15:52:50 Type 2 diabetes mellitus without complication 768923512 E11.9 Degenerati on of lumbar intervertebral disc 39212643 M51.36 Hypertensive disorder 38 613549 I10 Hyperlipidemia 34773552 E78.5 Diabetic p eripheral neuropathy 004383757 E11.40 Chronic ki dney disease stage 3 862786089 N18.30 Benign pro static hyperplasia without outflow obstruction 286944697 N40.0 Obesity 476788188 E66.9 Erectile dysfunction 860 128289 F52.21 Chronic low back pain 27 8095983 M54.50 [id number] Mushtaq Cox MD [address] [address] 04/10/2024 11:57:07 04/10/2024 12:29:06 Type 2 diabetes mellitus without complication 616161347 E11.9 Degenerati on of lumbar intervertebral disc 68938589 M51.36 Hypertensive disorder 38 356887 I10 Hyperlipidemia 15665577 E78.5 Diabetic p eripheral neuropathy 849462642 E11.40 Chronic ki dney disease stage 3 726758326 N18.30 Benign pro static hyperplasia without outflow obstruction 016423643 N40.0 Obesity 993531443 E66.9 Erectile dysfunction 860 217808 F52.21 Chronic low back pain 27 2137187 M54.50 Active immunization 3387 9002 Z23 [id number] Mushtaq Cox MD [address] [address] 05/01/2024 11:48:29 05/01/2024 12:47:03 Type 2 diabetes mellitus without complication 466452697 E11.9 Degenerati on of lumbar intervertebral disc 97369733 M51.36 Hypertensive disorder 38 541520 I10 Hyperlipidemia 00587140 E78.5 Diabetic p eripheral neuropathy 977191486 E11.40 Chronic ki dney disease stage 3 950832082 N18.30 Benign pro static hyperplasia without outflow obstruction 297028401 N40.0 Obesity 299493653 E66.9 Erectile dysfunction 860 927786 F52.21 Chronic low back pain 27 7348384 M54.50 Leukocytosis 271409627 D 72.907 [id number] Mushtaq Cox MD [address] [address] 07/31/2024 15:16:23 07/31/2024 15:39:44 [id number] Mushtaq Cox MD [address] [address] 08/07/2024 09:23:07 08/07/2024 10:03:40 Type 2 diabetes mellitus without complication 474586922 E11.9 Degenerati on of lumbar intervertebral disc 03233945 M51.369 Hypertensive disorder 38 058272 I10 Hyperlipidemia 11144637 E78.5 Diabetic p eripheral neuropathy 190605687 E11.40 Chronic ki dney disease stage 3 760217064 N18.30 Benign pro static hyperplasia without outflow obstruction 139966273 N40.0 Obesity 400154260 E66.9 Erectile dysfunction 860 274260 F52.21 Chronic low back pain 27 5166132 M54.50 Leukocytosis 985101656 D 72.829 History of operative procedure on lumbar spinal structure 282064320 Z98.890 06/16/24 [id number] [facility]_[address] [address] 11/03/2024 09:31:42 11/03/2024 10:58:[id number] [facility]_[address] [address] 11/06/2024 11:58:35 11/06/2024 12:24:53 Type 2 diabetes mellitus without complication 479673242 E11.9 Degenerati on of lumbar intervertebral disc 13653293 M51.369 Hypertensive disorder 38 796667 I10 Hyperlipidemia 83807393 E78.5 Diabetic p eripheral neuropathy 758452254 E11.40 Chronic ki dney disease stage 3 608410928 N18.30 Benign pro static hyperplasia without outflow obstruction 597219735 N40.0 Obesity 127836337 E66.9 Erectile dysfunction 860 662565 F52.21 Chronic low back pain 27 8414130 M54.50 Leukocytosis 016511644 D 72.829 History of operative procedure on lumbar spinal structure 534308846 Z98.890 06/16/24 Health Concerns Section Related Observation LastModified by Organization Detai ls LastModified Time None Recorded Concern Status LastModified by Organization Details LastModified Time None Recorded Advance Directives Directive N: Payers Encounter Date Sequence Insurance Name Policy Number Policy Irving Covered Member ID Irving Member ID Guarantor Name 05/01/2024 1 [employer] CLAIMS OFFICE Kieran Cohn [id number] Kieran Cohn 05/01/2024 2 [place] [facility] Kieran Cohn [id number] Kieran Cohn 07/31/2024 1 [employer] CLAIMS OFFICE Kieran Cohn [id number] Kieran Cohn 07/31/2024 2 [place] [facility] Kieran Cohn [id number] Kieran Cohn 08/07/2024 1 [employer] CLAIMS OFFICE Kieran Cohn [id number] Kieran Cohn 08/07/2024 2 [place] [facility] [place] [facility] Kieran Cohn [id number] Kieran Cohn 11/03/2024 1 [employer] CLAIMS OFFICE Kieran Cohn [id number] Kieran Cohn 11/03/2024 2 [place] [facility] Kieran Cohn [id number] Kieran Cohn 11/06/2024 1 [employer] CLAIMS OFFICE Kieran Cohn [id number] Kieran Cohn 11/06/2024 2 [place] [facility] Kieran Cohn [id number] Kieran Cohn Notes Date Note Type Note Provider Name and Address Organization Details Recorded Time 05/01/2024 text/html Pt is here with for f/u on his annual labs. Doing overall better than last visit. Denies any problem with meds. Denies any new concern. Pt is f/u with [facility] for his chronic low back pain and is getting epidural shots with them. Doing overall better with his low back pain compared to before.Pt has LATONIA and is not using his Cpap for it. Pt is f/u with Nephro for his CKD III. Mushtaq Cox MD [address], [place], [address], [employer] 05/01/2024 12:16:10 08/07/2024 text/html Pt is here with for f/u on his labs and chronic conditions. Doing overall better than last visit. Denies any problem with meds. Denies any new concern. Pt has a form for parking placard to be filled today. Pt is f/u with [facility] for his chronic low back pain and got metal implants in his lower back in 07/09. Doing overall better with his low back pain compared to before.Pt has LATONIA and is not using his Cpap for it. Pt is f/u with Nephro for his CKD III. Mushtaq Cox MD [address], [address], [place], [address], [employer] 08/07/2024 10:02:29 11/06/2024 text/html Pt is here for f /u on his labs and chronic conditions. Doing overall well. Denies any problem with meds. Denies any new concern. Denies any hypoglycemic episode or concern. Pt is f/u with [facility] for his chronic low back pain and got metal implants in his lower back in 07/09. Doing overall better with his low back pain compared to before.Pt has LATONIA and is not using his Cpap for it. Pt is f/u with Nephro for his CKD III. Mushtaq Cox MD [address] [place] [address], [facility] [address], [place], [address], [place] [facility] 11/06/2024 12:17:29
--- OUTSIDE RECORDS SUMMARY | 2024-12-23 08:14 | XMS_ITS | Clinical Summary ---
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 Name Role Phone Mushtaq Cox MD Primary Care Provider [phone] Allergies Active Allergy Reactions Criticality Noted Date Comments Adhesive Tape Other (see comments) Low 01/19/2020 skin comes off Medications albuterol HFA (PROVENTIL HFA;VENTOLIN HFA) 108 (90 Base) MCG/ACT inhaler albuterol sulfate HFA 90 mcg/actuation aerosol inhaler INHALE 2-4 PUFFS PO Q 4 H PRN Active aspirin (Jaycee Aspirin EC Low Dose) 81 MG EC tablet Take 1 tablet by mouth 1 (one) time each day Active atorvastatin (LIPITOR) 40 MG tablet atorvastatin 40 mg tablet TAKE 1 TABLET BY MOUTH EVERY DAY AT BEDTIME Active baclofen (LIORESAL) 10 MG tablet Take 10 mg by mouth 2 (two) times a day 9 Active diphenhydrAMINE (Benadryl Allergy) 25 MG capsule Take 2 capsules by mouth 1 (one) time each day Active Empagliflozin (Jardiance) 25 MG tablet Take 1 tablet by mouth 1 (one) time each day Active ergocalciferol 1.25 MG (29309 UT) capsule 50,000 Units EVERY 2 WEEKS Active ezetimibe (ZETIA) 10 MG tablet ezetimibe 10 mg tablet TAKE 1 TABLET BY MOUTH DAILY QAM Active famotidine (PEPCID) 20 MG tablet 2 (two) times a day Active glimepiride (AMARYL) 2 MG tablet Take 2 mg by mouth 2 (two) times a day 9 Active insulin glargine (Lantus SoloStar) 100 UNIT/ML injection Lantus Solostar U-100 Insulin 100 unit/mL (3 mL) subcutaneous pen ADMINISTER 54 UNITS UNDER THE SKIN EVERY DAY AT BEDTIME 0 Active linaGLIPtin (Tradjenta) 5 MG tablet Take 1 tablet by mouth 1 (one) time each day Active lisinopril 10 MG tablet 5 mg Active metFORMIN XR (GLUCOPHAGE-XR) 500 MG 24 hr tablet Take 1 tablet by mouth 2 (two) times a day Active pravastatin (PRAVACHOL) 10 MG tablet pravastatin 10 mg tablet TK 1 T PO QD 0 Active pregabalin (LYRICA) 50 MG capsule pregabalin 50 mg capsule Active Potassium 99 MG tablet Take by mouth Active pantoprazole (PROTONIX) 40 MG EC tablet Take 40 mg by mouth 1 (one) time each day before breakfast Do not crush, chew, or split. Active clopidogrel (PLAVIX) 75 MG tablet Take 75 mg by mouth 2 (two) times a day Active liraglutide (Victoza) 18 MG/3ML injection Inject under the skin 1 (one) time each day Active Active Problems Problem Noted Date Diagnosed Date Benign essential hypertension 02/26/2021 Stage 3b chronic kidney disease 02/26/2021 Renal disorder due to type 2 diabetes mellitus 0 02/26/2021 Obstructive sleep apnea syndrome 11/28/2020 Dystrophia unguium 11/25/2020 Diabetic peripheral neuropathy 10/02/2020 Dyspnea on exertion 06/26/2020 Gastro-esophageal reflux disease without esophag itis 03/28/2020 Vitamin D deficiency 03/28/2020 Hyperlipidemia 03/20/2020 Hypertensive disorder 03/20/2020 Obesity 03/20/2020 Diabetes mellitus 09/07/2019 Immunizations Immunization Administration Dates Next Due Influenza, Quadrivalent, With Preservative 06/20 Family History Medical History Relation Comments Diabetes Father Kidney disease Father Cancer Mother Diabetes Mother Hypertension Mother Relation Status Comments Father Mother Social History Tobacco Use Types Packs/Day Years Used Date Smoking Tobacco: Former Cigarettes Q uit: 01/07/1996 Alcohol Use Standard Drinks/Week Comments Yes 0 (1 standard drink = 0.6 oz pure alcohol) Alcoholic Drinks/day: Occasional social drink Sex and Gender Information Value Date Recorded Sex Assigned at Not on file Legal Sex Male 2:53 PM EDT Gender Identity Not on file Sexual Orientation Not on file Last Filed Vital Signs Vital Sign Reading Time Taken Comments Blood Pressure 120/74 06/17/2021 3:51 PM CDT Pulse 70 06/17/2021 3:51 PM CDT Temperature 36.4 C (97.5 F) 06/17/2021 3:51 PM CDT Respiratory Rate 18 01/06/2021 12:00 PM CDT Oxygen Saturation 99% 06/17/2021 3:51 PM CDT Inhaled Oxygen Concentration - - Weight 99.6 kg (219 lb 8 oz) 06/17/2021 3:51 PM CDT Height 170.2 cm (5' 7 ) 06/17/2021 3:51 PM CDT Body Mass Index 34.38 06/17/2021 3:51 PM CDT Plan of Treatment Health Maintenance Due Date Last Done Comments Hepatitis B Vaccine (1 of 3 - 19+ 3-dose series) 04/07 Pneumococcal Vaccine: 50+ Years (1 of 2 - PCV) 984 Colorectal Cancer Screening: Annual FOBT 2014 Colorectal Cancer Screening: Colonoscopy 2014 Colorectal Cancer Screening: Sigmoidoscopy 2014 Diabetes: Ophthalmology Exam 01/09/2021 Diabetes: Pedal Pulse Checked 01/09/2021 Diabetes: Sensory Foot Exam 01/09/2021 Diabetes: Visual Foot Exam 01/09/2021 Diabetes: Hemoglobin A1C 06/23/2021 03/23/2021 Influenza Vaccine (Season Ended) 2025 06/20/20 20 Procedures Procedure Name Priority Date/Time Associated Diagnosis Comments EXT RESULT ENTRY Routine 03/23/2021 from Last 3 Months or Most Recently Relevant to Health Maintenance Results * (ABNORMAL) EXT RESULT ENTRY (03/23/2021) WBC 9.1 3.3 - 10.0 10*3/ML Red Blood Cell Count 5.09 Hemoglobin 15.3 13.5 - 17.5 Hematocrit 47.3 41.0 - 53.0 Platelets 178 150 - 399 10*3/UL Neutrophils Absolute 5.98 1.30 - 8.30 10*3/UL Lymphocytes Absolute 2.19 1.40 - 2.90 10*3/UL Monocytes Absolute 0.66 0.20 - 0.80 10*3/UL Eosinophils Absolute 0.17(A) 0.20 - 0.70 10*3/UL Basophils Absolute 0 10*3/uL Immature Grans (Absolute) 0.03 x10E3/uL Neutrophils Relative 66 46 - 78 % Lymphocytes Relative 24 18 - 52 % Monocytes 7 3 - 10 % Eosinophil % 1.9 % Basophil % 0.6 % Immature Granulocytes 0.3 % Sodium 140 137 - 147 Potassium 4.8 3.4 - 5.5 Chloride 104 99 - 108 Bicarbonate (CO2) 24 22 - 30 mmol/L Anion Gap 17 <=30 MMOL/L Glucose 85 60 - 200 BUN 24(A) 4 - 21 mg/dL Creatinine 1.45(A) 0.60 - 1.30 mg/dL Total Protein 7.2 6.4 - 8.2 G/DL Albumin 4.4 3.5 - 5.0 g/dL Calcium 9.6 8.7 - 10.7 mg/dL eGFR Non-Afr Bahraini 51 Bilirubin Direct 0.7 Alkaline Phosphatase 85 U/L Globulin, Total 2.8 g/dL A/G Ratio 1.6 Vitamin D, 25-OH, Total 98.6 ng/mL Hemoglobin A1C 7.4(A) 4.0 - 6.0 TSH 0.545 PSA 0.43 ng/mL Microalbumin Urine Random (External Result Entry) <6 Glucose, UA 1000 mg/dL Bilirubin, UA Negative Ketones, UA Negative Spec Grav, UA 1.021 Blood, UA Negative Shun/ul pH, UA 6.0 Protein, UA Negative mg/dL Urobilinogen, UA Normal Nitrite, UA Negative Leukocytes, UA Negative WBC, Urine 0-2 None Seen, Occasional, 0-2 /HPF RBC, Urine None Seen None Seen, Occasional /HPF Epithelial Cells in Urine None Seen /HPF Bacteria, Urine None Seen None Seen, Occasional /HPF Casts occasional Triglycerides 96 40 - 160 Cholesterol 101 0 - 200 HDL 41 35 - 70 MG/DL LDL Calculated 41 0 - 160 mg/dL 03/23/2021 Historical Provider LAB BLOOD ORDERABLES Mohini l Result from Last 3 Months or Most Recently Relevant to Health Maintenance [place] [address] [facility] ([facility] JESSICA BAILEY [id number] Care Teams Retail Merchandiser Technician Relationship Specialty Start Date End Date Mushtaq Cox MD PCP - General 12/24/20
[2024-12-23 08:49] LABS: Albumin Level 4.2 g/dL (3.5-5.1); Anion Gap 9 mmol/L (4-12); Blood Urea Nitrogen 31 mg/dL (9-20); Calcium 9.4 mg/dL (8.4-10.2); Carbon Dioxide 25 mmol/L (22-30); Chloride 106 mmol/L (98-107); Estimated Glomerular Filt Rate 38; Glucose 163 mg/dL (65-110); Phosphorus 2.9 mg/dL (2.5-4.5); Potassium 4.5 mmol/L (3.4-5.0); Sodium 140 mmol/L (137-145)
[2024-12-23 09:45] LABS: Creatinine Urine 55.6 mg/dL; Total Protein Urine Random 7 mg/dL; Ur Ttl Prot Creatinine Ratio 0.13 mg/mg (0-0.20)
== END 2024-12-23 08:11 | disposition home or self-care (01) ==
PROVIDERS: PCP Family Medicine; Visit Provider Internal Medicine Nephrology
DX: I12.9 Hypertensive chronic kidney disease with stage 1 through stage 4 chronic kidney disease, or unspecified chronic kidney disease (principal); E11.22 Type 2 diabetes mellitus with diabetic chronic kidney disease; N18.32 Chronic kidney disease, stage 3b
CPT/HCPCS: 36415; 80069; 82570; 84156

== ENCOUNTER 2025-05-09 15:27 | Outpatient (CLI) | payer MEDICARE, SELFPAY ==
--- OUTSIDE RECORDS SUMMARY | 2025-05-08 07:22 | XMS_ITS | Encounter Summary ---
Author Organization [facility] Healthcare Address [address] [place] [address] Care Team Providers Care Monitor Worker Name Role Phone Mushtaq Cox MD Primary Care Provider [phone] Deacon Gates MD Unavailable [phone] Twila Corona MD Unavailable [phone] Reason for Visit * Auth/Cert (Routine) Specialty Diagnoses / Procedures Referred By Lakisha t Referred To Contact Diagnoses Right carpal tunnel syndrome Right carpal tunnel syndrome [G56.01] Procedures [facility] KIT [id number] CARPAL TUNNEL RELEASE RI NEURP MAJOR PRPH NRV ARM/LEG OPN OTH/THN SPEC RI NEUROPLASTY &/TRANSPOS MEDIAN NRV CARPAL TUNNE RI TNOT FLXR/XTNSR TENDON FOREARM&/WRIST 1 EA right RELEASE CARPAL TUNNEL right pronatoar release Referral ID Status Reason Start Date Expiration Date Visits Re quested Visits Authorized [id number] 1 1 Encounter Details Date Type Department Care Team (Latest Contact Info) Description 05/08/2025 7:22 AM CDT - 05/08/2025 11:30 AM CDT Hospital Encounter [facility] [address] [place] [address] [id number] Aneesh Kern MD [address] [facility] 6A[address]6B[address] [place] [address] Right carpal tunnel syndrome (Primary Dx) Discharge Disposition: Discharge to home or self care Social History Tobacco Use Types Packs/Day Years Used Date Smoking Tobacco: Former Cigarettes 1 9.4 1 986 - 01/18/1995 Smokeless Tobacco: Never Alcohol Use Standard Drinks/Week Comments Yes 0 (1 standard drink = 0.6 oz pur e alcohol) AUDIT-C Answer Date Recorded Q1: How often do you have a drink containing alc ohol? Monthly or less 05/08/2025 Q2: How many drinks containi ng alcohol do you have on a typical day when you are drinking? 1 or 2 05/08/2025 Q3: How often do you have si x or more drinks on one occasion? Never 05/08/2025 Personal Safety Answer Date Recorded Have you ever been in or are you currently in a harmful physical or emotional relationship or is someone making you feel afraid or unsafe? 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 Gender Identity Male 05/21/2021 1:05 PM CDT Sexual Orientation Straight 04/10/2024 1: 13 PM CDT documented as of this encounter Last Filed Vital Signs Vital Sign Reading Time Taken Comments Blood Pressure 135/71 05/08/2025 10:40 AM CDT Pulse 49 05/08/2025 11:13 AM CDT Temperature 36.1 C (97 F) 05/08/2025 10:25 AM CDT Respiratory Rate 14 05/08/2025 11:1 3 AM CDT Oxygen Saturation 96% 05/08/2025 11: 13 AM CDT Inhaled Oxygen Concentration - - Weight 97.5 kg (214 lb 14.4 oz) 05/08/2025 7:36 AM CDT Height 172.7 cm (5' 8) 05/08/2025 7:36 AM CDT Body Mass Index 32.68 05/08/2025 7:36 AM CDT documented in this encounter Functional Status * AUDIT-C Score Answer Date of Assessment Author 1 05/08/2025 7:35 AM CDT Elaine Terry RN * Question Answer Date of Assessment Author Q1: How often do you have a drink containing alcohol? Monthly or less 05/08/2025 7:35 AM CDT Mikala Terry RN Q2: How many drinks containing alcohol do you have on a typical day when you are drinking? 1 or 2 05/08/2025 7:35 AM TRISTANT Mikala Terry RN Q3: How often do you have six or more drinks on one occasion? Never 05/08/2025 7:35 AM Mikala Jones RN documented as of this encounter Discharge Instructions * Discharge Instructions* Aneesh Kern MD - 05/07/2025 2:17 PM CDT Postoperative Instructions [facility] [place] -[address] [facility] [address] [facility]- [address] [facility], [address] Your first postoperative appointment is listed on the first page of instructions Dressing/Wound Care: A large dressing has been placed on your arm to reduce motion and control swelling. Keep your dressing clean and dry. Keep the dressing/splint on for 5 days. Wear a plastic bag over your dressing/splint whenever you take a shower or bath Swelling is normal after surgery. Elevate your hand/arm so the surgical site is above your heart todecrease the swelling. Swelling is like water, it runs downhill. This is especially important for the first 72 hours after surgery. The best way to elevate your hand/arm is with your fingers pointing towards the ceiling and your hand/arm above the level of the heart. You can use pillows to help prop your hand/arm up when sitting or lying down. If you are experiencing pain, be sure you are elevating your hand/arm as often as possible. Apply an ice pack over your dressing/splint for 20 minutes of every hour for the first few days when you are awake. This can help to reduce swelling and inflammation. Be sure the ice pack is waterproof so it does not leak on the dressing/splint. A simple ice pack can be made by adding ten cubes lisa small amount of water in a small zip-lock bag. Seal this small bag tightly. Place this small bag in a larger zip lock bag. Apply to the area in pain. If the dressing feels too tight in spite of elevation, loosen the outer wrap but do not remove the entire dressing. ACTIVITIES: Bend and straighten the parts of your hand/arm that are not included in your surgical dressing or splint. Do this at least 6 times a day, as this will help decrease swelling and speed up your recovery. This includes your fingers when exposed so that you make a full fist. POSTOPERATIVE CARE/CONCERNS: You may experience some temporary numbness in your fingers. You should have very little to no bleeding on your dressing. Notify the office for any of the following: Excessive pain not relieved by rest, elevation, and pain medications Feeling that the dressing is too tight in spite of adequately elevating hand/arm Active bleeding through the dressing Drainage from the wound site or pin sites Foul odor from the dressing/wound Temperature greater that 101? F or chills Blue or excessively cold fingertips Numbness of the fingertips that does not improve in spite of adequately elevating hand/arm PAIN MEDICATION: A prescription for narcotic pain medication has been provided for you to take to your pharmacy. Do not take pain medication on an empty stomach. You should not drive while taking narcotic pain medication Pain is a normal part of the recovery after surgery. The pain medication provided to you will help to decrease the discomfort but will not completely eliminate the pain. Your pain should decrease over the first few days after surgery which will allow you to take less pain medicine, increase the time between doses of medication, or stop taking all pain medicine Please refer to Perioperative Narcotic Considerations form in your Pre-operative packet OFFICE CONTACT NUMBERS: DURING BUSINESS HOURS: Wednesday - Wednesday 8:00 - 4:30 Orthopaedic Surgeon: Dianne Trinidad AFTER HOURS/WEEKEND - EMERGENCIES ONLY (NO MED REFILLS): Medical Exchange: [phone] or toll-free Perioperative Narcotic Considerations The Orthopedic hand surgeons of [facility] manage perioperative pain as wellas the pain after an acute injury. Our surgeons do not manage chronic pain (pain three months afterthe injury/surgery), and will refer patients seeking longer term care for their painful condition to a pain management service or their primary physician as those physicians typically establish roasterman treatment relationships with patients. Following elective hand and upper extremity surgery, a prescription for an opioid-based medication will likely be given to the patient. ???Minor??? procedures such as carpal tunnel release, trigger finger release and ganglion excision will receive 10-20 tablets of Tylenol with Codeine, Tramadol, orNorco. Your surgeon will decide which is the most appropriate. Most other procedures will be receive 20-30 tablets. Procedures that will need aggressive and continuous post-operative hand therapy (and adequate acute pain control during this period) may need a greater number of [place] tablets to lastthe during the therapy period. Your surgeon may discuss with you reasoning behind the number of tablets that will be prescribed. There are many things that a patient can do to manage their pain after surgery or after an acute injury: Move the shoulder, elbow and all other joints that are not immobilized by the post-operative dressing as much as possible. Elevate the operated hand and wrist so that swelling can be reduced. Place ice and a few ounces of tap water in a small sealed plastic bag, and place it on the outside of the surgical dressing. Keep it there until the operated part under the ice bag starts to feel cold. This can reduce both pain and swelling. Anti-inflammatory pain medication such as Advil, Aleve, generic Ibuprofen, generic Naproxen or generic Naprosyn can all be used in addition to the narcotics prescribed by your doctor. Prescription anti-inflammatory pain medication such as Celebrex, Indocin or Toradol can be called in to your pharmacy if ???ggnx-kaf-irkyzet??? anti- inflammatory pain medication do not decrease the pain even when taken on a regular basis. These can be called in during the hours 9am to 4pm, during the workweek. ???Alternative??? treatments such as acupuncture, meditation and biofeedback can all be used to decrease post-operative pain. The Orthopedic hand surgeons of [facility] want you to be as comfortable as possible following your operation or your injury, and we want you to return to your level of active function as quickly as possible. Although narcotics (opioid medications) can have a role in obtaining pain relief after surgery or injury, the prolonged use of these highly addictive medications can- and do- have severe side effects. Even in patients who are not addicted, narcotics become less effective over time as the body becomes tolerant to the drug and there is evidence that prolonged use mayincrease the body???s interpretation of pain. The ???opioid epidemic??? in [place] is very real, and we as physicians are duty-bound to be as appropriate as can be in the administration of narcotics. When prescribed narcotics, you should start with a plan of how to wean off of them and where you will keep the drug to avoid any misuse by those around you. If you have any questions about our philosophy regarding the prescriptions of narcotic medications for the relief of pain following surgery orinjury, please talk to your surgeon or his/her nurse or MA. documented in this encounter Medications at Time of Discharge aspirin 81 mg enteric coated tabletIndication s:prevention of thrombosis Take 1 tablet (81 mg total) by mouth every morning atorvastatin (LIPITOR) 40 mg tabletIndication s:hyperlipidemia Take 1 tablet (40 mg total) by mouth every morning 03/10/2021 calcitRIOL (ROCALTROL) 0.25 mcg capsuleIndicatio ns:Vitamin D Deficiency,hypoc alcemia Take 1 capsule (0.25 mcg total) by mouth 3 (three) times a week Wednesday, Wednesday, Wednesday empagliflozin (JARDIANCE) 25 mg tabletIndication s:type 2 diabetes mellitus Take 1 tablet (25 mg total) by mouth every morning ergocalciferol (VITAMIN D) 50,000 unit capsuleIndicatio ns:Vitamin D Deficiency Take 1 capsule (50,000 Units total) by mouth once a week Wednesday10/18/2024 ezetimibe (ZETIA) 10 mg tabletIndication s:hyperlipidemia Take 1 tablet (10 mg total) by mouth every morning 08/16/1969 famotidine (PEPCID) 20 mg tabletIndication s:Heartburn,Hear tburn Prevention Take 1 tablet (20 mg total) by mouth every morning finerenone (Kerendia) 20 mg tabletIndication s:chronic kidney disease associated with type 2 diabetes Take 20 mg by mouth every morning gabapentin (NEURONTIN) 300 mg capsule Take 1 capsule (300 mg total) by mouth 3 (three) times a day 90 capsule 1 10/16/2024 glimepiride (AMARYL) 2 mg tabletIndication s:type 2 diabetes mellitus Take 1 tablet (2 mg total) by mouth daily before breakfast hydroCHLOROthiaz tonio 12.5 mg tabletIndication s:htn Take 1 tablet/capsule (12.5 mg total) by mouth every morning 09/29/2024 icosapent ethyL (VASCEPA) 1 gram capsuleIndicatio ns:hypertriglyce ridemia Take 2 capsules (2 g total) by mouth 2 (two) times a day insulin glargine 100 unit/mL (3 mL) pen for injectionIndicat ions:t2dm Inject 38 Units under the skin 2 (two) times a day linaGLIPtin (TRADJENTA) 5 mg tabletIndication s:type 2 diabetes mellitus Take 1 tablet (5 mg total) by mouth every morning lisinopriL (PRINIVIL,ZESTRI L) 5 mg tabletIndication s:hypertension Take 1 tablet (5 mg total) by mouth every morning meloxicam (MOBIC) 15 mg tabletIndication s:Lumbar radiculopathy,Ch ronic SI joint pain TAKE 1 TABLET EVERY DAY 90 tablet 3 02/22/[address] (PROTONIX) 40 mg EC tabletIndication s:gerd Take 1 tablet (40 mg total) by mouth nightly pen needle, diabetic (BD Ultra-Fine Dali Pen Needle) 32 gauge x 5/32 needle 11/30/2019 rivaroxaban (Xarelto) 2.5 mg tabletIndication s:cardiac stent Take 1 tablet (2.5 mg total) by mouth 2 (two) times a day semaglutide (Ozempic) 2 mg/dose (8 mg/3 mL) pen injector injectionIndicat ions:type 2 diabetes mellitus Inject 2 mg under the skin every 7 days Takes on Saturdays tiZANidine (ZANAFLEX) 4 mg tablet TAKE 1 TABLET (4 MG TOTAL) BY MOUTH EVERY 6 (SIX) HOURS NEEDED FOR MUSCLE SPASMS 120 tablet 11 01/16/2025 traMADoL (ULTRAM) 50 mg tabletIndication s:Lumbar radiculopathy,Celeste mbar spine pain Take 1 tablet (50 mg total) by mouth 3 (three) times a day as needed for pain for up to 7 days 21 tablet 07/03/2024 acetaminophen (TYLENOL) 500 mg tablet Take 2 tablets (1,000 mg total) by mouth every 8 (eight) hours as needed for pain 60 tablet 06/18/2024 fish oil-dha-epa 1,200-144-216 mg capsule Take by mouth HYDROcodone-acet aminophen (NORCO) 5-325 mg per tabletIndication s:Pain Take 1 tablet by mouth every 6 (six) hours as needed for pain 12 tablet 05/08/2025 oxyCODONE (ROXICODONE) 10 mg tabletIndication s:Pain Take 1 tablet (10 mg total) by mouth every 4 (four) hours as needed for pain 40 tablet 06/18/2024 documented as of this encounter Ordered Prescriptions Prescription Sig Dispense Quantity Refills Last Filled Start Date End Date HYDROcodone-acetami nophen (NORCO) 5-325 mg per tabletIndications:P ain Take 1 tablet by mouth every 6 (six) hours as needed for pain 12 tablet 05/08/2025 documented in this encounter Discharge Disposition Disposition Code Departure Means Destination Comment s Discharge to home or self care documented in this encounter H&P Notes * Saritha Venegas, PRAKASH - 05/08/2025 7:24 AM CDT Outpatient Pre-Procedure History and Physical Subjective Patient is a 60 y.o. male with chief complaint of right hand pain. Indication For Procedure: Pre-op Diagnosis * Right carpal tunnel syndrome [G56.01] Planned Procedure right RELEASE CARPAL TUNNEL (R), right pronatoar release (R) HPI: 60 yo male with right hand numbness and pain. He presents today for right carpal tunnel release and pronator release. Past Medical History: Diagnosis Date Anxiety well controlled with meds Arthritis Depression well controlled with meds GERD (gastroesophageal reflux disease) well controlled with meds Hyperlipidemia well controlled with meds Hypertension well controlled with meds Insomnia Sleep apnea no C=PAP or mouth guard Spinal stenosis of lumbar region, unspecified whether neurogenic claudication present Type 2 diabetes mellitus 2014 well controlled with meds. Last A1c-->7.7 (12/07/2019) Past Surgical History: Procedure Laterality Date CARDIAC STENT PLACEMENT 2022 x1 FL UPPER GI AIR CONTRAST W KUB Bilateral 05/01/2024 FUNCTIONAL ENDOSCOPIC SINUS SURGERY 2018 IR INJECTION ARTHROGRAM SI JOINT BILATERAL WITH GUIDANCE Bilateral 03/27/2024 ROTATOR CUFF REPAIR Left 2014 ROTATOR CUFF REPAIR Right 01/22/2020 SPINAL FUSION 06/16/2024 Minimally invasive left L2-3 extreme lateral interbody fusion - left L2-3 posterior spinal fusion Medications Prior to Admission Medication Sig Dispense Refill Last Dose/Taking aspirin 81 mg enteric coated tablet Take 1 tablet (81 mg total) by mouth every morning 05/03/2025 atorvastatin (LIPITOR) 40 mg tablet Take 1 tablet (40 mg total) by mouth every morning 05/08/2025 Morning calcitRIOL (ROCALTROL) 0.25 mcg capsule Take 1 capsule (0.25 mcg total) by mouth 3 (three) times a week Wednesday, Wednesday, Wednesday05/08/2025 at 5:30 AM empagliflozin (JARDIANCE) 25 mg tablet Take 1 tablet (25 mg total) by mouth every morning 05/07/2025 ergocalciferol (VITAMIN D) 50,000 unit capsule Take 1 capsule (50,000 Units total) by mouth once a week Wednesday05/06/2025 ezetimibe (ZETIA) 10 mg tablet Take 1 tablet (10 mg total) by mouth every morning 05/08/2025 Morning famotidine (PEPCID) 20 mg tablet Take 1 tablet (20 mg total) by mouth every morning 05/07/2025 finerenone (Kerendia) 20 mg tablet Take 20 mg by mouth every morning 05/07/2025 gabapentin (NEURONTIN) 300 mg capsule Take 1 capsule (300 mg total) by mouth 3 (three) times a day (Patient taking differently: Take 1 capsule (300 mg total) by mouth 3 (three) times a day) 90 capsule 1 05/07/2025 glimepiride (AMARYL) 2 mg tablet Take 1 tablet (2 mg total) by mouth daily before breakfast 05/07/2025 hydroCHLOROthiazide 12.5 mg tablet Take 1 tablet/capsule (12.5 mg total) by mouth every morning 05/07/2025 icosapent ethyL (VASCEPA) 1 gram capsule Take 2 capsules (2 g total) by mouth 2 (two) times a day 05/07/2025 insulin glargine 100 unit/mL (3 mL) pen for injection Inject 38 Units under the skin 2 (two) times a day 05/08/2025 Morning linaGLIPtin (TRADJENTA) 5 mg tablet Take 1 tablet (5 mg total) by mouth every morning 05/07/2025 lisinopriL (PRINIVIL,ZESTRIL) 5 mg tablet Take 1 tablet (5 mg total) by mouth every morning 05/07/2025 meloxicam (MOBIC) 15 mg tablet TAKE 1 TABLET EVERY DAY (Patient taking differently: Take 1 tablet (15 mg total) by mouth every morning) 90 tablet 3 05/07/[address] (PROTONIX) 40 mg EC tablet Take 1 tablet (40 mg total) by mouth nightly 05/07/2025 pen needle, diabetic (BD Ultra-Fine Dali Pen Needle) 32 gauge x 5/32 needle Taking rivaroxaban (Xarelto) 2.5 mg tablet Take 1 tablet (2.5 mg total) by mouth 2 (two) times a day 05/03/2025 semaglutide (Ozempic) 2 mg/dose (8 mg/3 mL) pen injector injection Inject 2 mg under the skin every7 days Takes on Saturdays05/05/2025 tiZANidine (ZANAFLEX) 4 mg tablet TAKE 1 TABLET (4 MG TOTAL) BY MOUTH EVERY 6 (SIX) HOURS NEEDEDFOR MUSCLE SPASMS (Patient taking differently: Take 1 tablet (4 mg total) by mouth every 6 (six) hours as needed for muscle spasms More than a month) 120 tablet 11 05/07/2025 traMADoL (ULTRAM) 50 mg tablet Take 1 tablet (50 mg total) by mouth 3 (three) times a day as neededfor pain for up to 7 days (Patient taking differently: Take 1 tablet (50 mg total) by mouth every 8(eight) hours as needed for pain) 21 tablet 0 Past Month acetaminophen (TYLENOL) 500 mg tablet Take 2 tablets (1,000 mg total) by mouth every 8 (eight) hours as needed for pain (Patient taking differently: Take 2 tablets (1,000 mg total) by mouth every 6 (six) hours as needed for pain) 60 tablet 0 More than a month fish oil-dha-epa 1,200-144-216 mg capsule Take by mouth 05/03/2025 oxyCODONE (ROXICODONE) 10 mg tablet Take 1 tablet (10 mg total) by mouth every 4 (four) hours as needed for pain (Patient taking differently: Take 1 tablet (10 mg total) by mouth every 4 (four) hoursas needed for pain More than a month; last use approx 08/2024 after spine surgery) 40 tablet 0 More than a month Allergies Allergen Reactions Adhesive Other (See comments) skin comes off. Only ever an issue with adhesive used on face. Social History Tobacco Use Smoking status: Former Current packs/day: 0.00 Average packs/day: 1 pack/day for 9.4 years (9.4 ttl pk-yrs) Types: Cigarettes Start date: 1985 Quit date: 01/18/1995 Years since quittin.3 Smokeless tobacco: Never Substance and Sexual Activity Drug use: Yes Types: Alcohol Comment: rare Sexual activity: Defer Alcohol Use: Not At Risk (05/08/2025) AUDIT-C Frequency of Alcohol Consumption: Monthly or less Average Number of Drinks: 1 or 2 Frequency of Binge Drinking: Never Social History Substance and Sexual Activity Drug Use Yes Types: Alcohol Comment: rare Vitals: 04/03/25 1240 05/08/25 0736 05/08/25 0743 BP: 121/67 BP Location: Left arm Patient Position: Lying Pulse: 54 Resp: 16 Temp: 36 ??C (96.8 ??F) TempSrc: Temporal SpO2: 96% Weight: 97.1 kg (214 lb) 97.5 kg (214 lb 14.4 oz) Height: 175.3 cm (5' 9) 172.7 cm (5' 8) Review of Systems: Review of systems per HPI and otherwise all other systems are negative Physical exam: Lungs: clear to auscultation bilaterally Heart: regular rate and rhythm, S1, S2 normal, no murmur, click, rub or gallop Neurologic: Alert and oriented x4, grossly intact Saritha Venegas NP Cosigned by Aneesh Kern MD at 05/08/2025 9:02 AM CDT documented in this encounter Miscellaneous Notes * Perioperative Nursing Note - Sofia Covington RN - 05/08/2025 10:29 AM CDT 1025 Pt received to pacu,report received from nell. Rn at bedside. Vs stable, critical hookupspreformed. Resp even unlabored. Iv infusing without diff. Dressing dry and intact. Ice pack to surgical area applied.Pt in bed in lowest position locked with both side rails up, nonslip socks applied, curtain open and patient near nurses station. Pt will not be left behind curtain alone. Pt assisted in all cares in recovery. Eusebio score based on pre-op condition. 1049 pt awake, talking with staff intermittently. Taking bites cracker and sips water. Moustapha well. 1054 pt awake, pt family at bedside.Reviewed pt discharge instructions with pt and pt family at bedside, both verbalized understanding. No questions 1110 pt c/o pain rue 1113 po pain med given 1120 pt states ready to get dressed and wants to go home 1130pt States pain better, tolerable to go home . Pt ready for discharge. Pt assisted to wheelchairper RN and taken to bathroom to void then transported to car in wheelchair. Care of pt transferred to pt family. * Op Note - Aneesh Kern MD - 05/08/2025 9:23 AM CDT Date of Surgery: .05/08/25 Pre-operative Diagnosis: 1. Right carpal tunnel syndrome 2. Right pronator syndrome Post-operative diagnosis: 1. Same as above Operative Procedure: 1. Right carpal tunnel release 2. External neurolysis and decompression of the right median nerve in the proximal forearm 3. Z-plasty lengthening of right pronator teres tendon Attending Surgeon: Aneesh Kern MD, M.Sc. Room Service Food Server: 1. Ross Mukherjee MD There was no qualified orthopedic surgery resident available to assist with this procedure. Therefore, the skilled assistance of Dr. Ross Mukherjee, a hand surgery fellow, was medically necessary for the safe performance of this procedure. Dr. Ross Mukherjee was scrubbed and involved in all aspects of the surgery with special expertise necessary for the following parts of the procedure: Carpal tunnel release, external neurolysis and decompression of nerve and proximal forearm and lengthening of pronator teres tendon. Anesthesia: Choice Blood loss: minimal Tourniquet Time: Total Tourniquet Time Documented: Arm - Upper (Right) - 52 minutes Total: Arm - Upper (Right) - 52 minutes Findings: See below Specimen: No specimens collected during this procedure. Complications: None Condition: The patient was transferred to the PACU in good condition. Indications: This is a 60-year-old male with a history of right carpal tunnel syndrome and right proximal forearm pain consistent with a right pronator teres syndrome. Given the above, I recommended carpal tunnel release and proximal median nerve decompression. Risks and benefits were discussed in detail, informed consent was obtained. The risks discussed included bleeding, infection, damage to blood vessels/nerves/tendons/bone, chronic pain, stiffness, and need for additional surgery. The patient had a good understanding of this and elected to proceed. Informed consent was obtained. Procedure: Site Marking: The operative site was marked in the holding area. The consent was verified and all questions were answered. Time Out Procedure: A preprocedural pause was conducted to verify correct patient side, site, procedure, allergies, antibiotics and post-operative plan. Operative Course: Informed consent was obtained prior to the surgery and the patient was brought to the operating room. The patient was positioned supine on the OR table with use of a hand table. Anesthesia was induced as noted above. A preprocedural pause was conducted to verify correct patient side, site and procedure as well as confirm the wound class, and a nonsterile tourniquet was placed high above the elbow. 2 g Ancef was given by our anesthesia colleagues. The arm was elevated and exsanguinated with an Esmarch bandage, tourniquet inflated to 250 mm Hg. A Hazel block was performed by our anesthesia colleagues. The arm was then prepped and draped in the usual sterile fashion. A 3-4 cm incision was made overlying the transverse carpal ligament in line with the radial border of the right ring finger. Dissection was made through skin and subcutaneous tissue. The palmar fascia was sharply divided, and a self retaining retractor was introduced into the wound. The distal edgeof the transverse carpal ligament was visualized, as was the superficial palmar arch. Hand held retractors were introduced into the wound and the transverse carpal ligament was divided sharply from distal to proximal under direct visualization, using a combination of a scalpel blade and scissors and leaving the most distal aspect of the ligament intact. Once the ligament was divided, the distal po rtion of antebrachial fascia was incised under direct visualization. Attention was then turned distally, and with the superficial palmar arch visualized, the most distal aspect of the ligament was completely released. Complete release was confirmed by inspection of the distal ligament. Additional fibers of the palmar fascia were divided with care taken to avoid injury to the deep structures. The median nerve was inspected and noted to be intact. The wound was copiously irrigated. Incision was closed with interrupted 4-0 Nylon sutures. We then turned our attention to the proximal median nerve release. An S shaped incision was made along the proximal 3rd of the forearm. Sharp dissection was carried down through skin, a combination of blunt sharp dissection was utilized elevate full-thickness skin flaps. The lateral antebrachial cutaneous nerve and its branches were identified and protected throughout the dissection. We then identified the superficial branch of radial nerve and the radial vessels. We identified the pronator teres tendon between these, a Z-lengthening tenotomy was made in the pronator teres tendon. We then elevated this proximally, we identified the median nerve. There was evidence of constriction of the nerve by the deep head of the pronator teres. This was released utilizing tenotomy scissors. We then continued to the leading edge of the FDS, there was a tight fascial structure overlying the nerve, this was also released. We looked proximally and distally, there was no evidence of any further compression sites of the median nerve. We then repaired the pronator teres tendon in a lengthened fashion utilizing the Z-plasty step-cut utilizing 2-0 Vicryl suture. The wound was then thoroughly irrigated, tourniquet was released and meticulous hemostasis was obtained. The wound was closed utilizing interrupted 3-0 Monocryl suture followed by interrupted 3-0 nylon sutures. A sterile soft dressing was then applied.The patient was awoken without difficulty, and transportedto the recovery room in stable condition. All sponge,needle,and instrument count was correct at the end of the case. Drains: Active and Removed None Counts: All needle, sponge, and instrument counts were correct at the end of the case. Attending participation: I was present and scrubbed for all crtical portions of the case, I was immediately available for the remainder of the procedure. Post-operative plan The intraoperative findings were discussed in detail with the patient's family at the conclusion ofthe procedure. The patient will remain in the postoperative dressing for 5 days, after which time it may be removed. The patient is cautioned not to lift anything greater than 2 lb with the operativeextremity. I will see them back in clinic in 2 weeks for wound evaluation and suture removal. This is a low risk procedure, the patient is ambulatory, therefore chemical DVT prophylaxis is not indicated. Block Request I have requested that regional anesthesia for pain management be performed by a qualified health care provider from the Anesthesia department for post-operative pain management. Based upon the degreeof post-operative pain that is expected from this procedure, the skills and experience of a qualified health care provider from the Anesthesia department are required. This expertise in pain management will improve pain relief and aid in decreasing analgesic side effects. * Perioperative Nursing Note - Mikala Terry RN - 05/08/2025 7:26 AM CDT Pt in bed in lowest position locked with both side rails up, nonslip socks applied, curtain open and patient near nurses station. Pt will not be left behind curtain alone. Pt's spouse, Fide, with pt. Pt states will care for and remain with pt for 24 hours post surgery. * Pre-Procedure Instructions - Marce Padilla RN - 05/07/2025 1:22 PM CDT We are pleased that you and your doctor have chosen [facility] for your surgery. We hope the following information will help make your visit a pleasant one. The name of the building is [facility] in [place]. Directions to facility (address is [id number] [place] [address] road, [address] [facility] exit. [address] [id number] When you enter the building, look directly to your left, you will see 2 glass double doors. These double doors say [address]. Go through those double doors and check in with the office receptionist. Bring pillows, leave in car. Wear loose-fitting clothes. Something with an elastic waist on the bottom, such as gym shorts or sweat pants depending on the weather. T-shirt on top or a shirt with a loose sleeve unless you are having shoulder surgery then wear a loose- fitting button-down shirt or a shirt that zips up the front. Pt instructed by CPAP not to eat anything after Midnight. CPAP instructed pt.-->You may have clear liquids on the day of surgery until two hours before your arrival to the Orthopedic center, clear liquids until 0500. Acceptable clear liquids include water, clear sports drinks, unsweetened tea, black coffee or clear soda. Do NOT drink Milk, creamer or Alcohol. You MUST STOP drinking two hours before you arrive to the Orthopedic center. No gum, no mints , no candy, no cough drops, no CBD oil, no marijuana, no Chewing tobacco, or vaping. No ice or water. You may brush your teeth, just make sure you spit it all out. Instructed to patient to refer to [facility] surgery guide page 6 for any questions regarding eating and drinking day of surgery. For medications that the Nurse Practitioner instructed you to take on the morning of surgery, take the medications with a few sips of water. Pt's. FIDE will be with patient and care for patient for the first 24 hours post-op. Pt. Instructed to arrive at 0730 for 0900 procedure. Procedure is scheduled for 1 hour(s). Pt. Denies any of the following symptoms: Nausea/vomiting/diarrhea, loss of taste or smell, rash orsores, body/muscle/joint aches, cough, sore throat, fever/chills, severe headache or Shortness of breath. Pt. is asymptomatic and denies any exposure to Covid or any Covid symptoms. Explained to patient, if you develop any symptoms of fever, chills, headache, cough, sore throat, body aches or is exposed to anyone that has been diagnosed, tested or quarantined for the COVID-19 you will not be allowed to enter the building or to have your surgery per anesthesia's guidelines. Explained to patient to please call the morning of surgery, any time after 5:30 a.m. if you or your caregiver develops any of these symptoms or is exposed to anyone that has been diagnosed, tested or quarantined for COVID-19. Pt. Reports understanding. Once your physician has completed your surgery, he will call your caregiver to notify them your surgery is complete, and you are heading to the Recovery room. Your caregiver will not be called back to be with you until you are awake and ready for discharge. The nurse who is caring for you will callyour caregiver to come back to be with you for discharge instructions. Explained to patient that the self-serve cafe is across the robert from the surgery center. Explainedto patient if their caregiver would like anything to eat or drink, they may bring their own or purchase it from the refreshment area. We are pleased that you and your doctor have chosen [facility] for your surgery. We hope the following information will help make your visit a pleasant one. * Pre-Procedure Instructions - Linda Montoya NP - 04/06/2025 10:22 AM CDT Center for Preoperative Assessment and Planning CPAP Clinic Location: [facility] CPAP The night before your surgery: * Do not eat anything after midnight the night before your procedure. The morning of your surgery: * You may have clear liquids on your surgery day. You must stop drinking two hours before you arrive to the surgery facility. Acceptable clear liquids include water, clear sports drinks, black coffee, tea, or clear soda. DO NOT drink any milk, creamer, or alcohol. * Your surgeon's office may have provided additional instructions or restrictions. Please follow those instructions. * You may brush your teeth and rinse your mouth out. * Do not glue your dentures. * Do not wear jewelry, body piercings, makeup, hairpins, false eyelashes or contact lenses to the hospital. * Leave any valuables at home or with your family. * If you have an implantable device with a remote, bring the remote with you on the day of surgery. * If you use home oxygen, bring your portable oxygen tank with you on the day of surgery Outpatient Surgery: * You must have a responsible adult drive you home and stay with you for 24 hours after your surgery * You cannot be alone at home or in a hotel * Please call your surgeon's office if you do not have someone to drive you home and/or stay with you after surgery * Please bring any items you may need to spend the night in the hospital. Sometimes patients need to be cared for in the hospital overnight. If you have Sleep Apnea (LATONIA): * Bring your CPAP/BiPAP/VPAP machine to the hospital the day of your surgery * For a few days after your surgery, you will need to wear your CPAP/ BiPAP/VPAP machine any time your are sleeping. This includes when you take a nap. If you have Diabetes: * You may also need less insulin than usual. * If you use insulin and are placed on a liquid diet, be sure to drink some liquids that contain sugar. * If your blood sugar is low before you come to the hospital, drink a small amount of sugar water or clear juice like apple or cranberry juice. DO NOT drink orange or pineapple juice. These are not clear liquids. * If you take insulin be sure to read the Medicine Instructions. * Please call your surgeon and/or the CPAP Clinic if you have any questions. Instructions For Your Medications: Pre-Surgery Instructions: Medication Instructions acetaminophen (TYLENOL) 500 mg tablet Take on day of surgery if needed atorvastatin (LIPITOR) 40 mg tablet Take morning of surgery calcitRIOL (ROCALTROL) 0.25 mcg capsule Don't take on day of surgery empagliflozin (JARDIANCE) 25 mg tablet Don't take on day of surgery ergocalciferol (VITAMIN D) 50,000 unit capsule Don't take on day of surgery ezetimibe (ZETIA) 10 mg tablet Take morning of surgery famotidine (PEPCID) 20 mg tablet Take morning of surgery finerenone (Kerendia) 20 mg tablet Take morning of surgery gabapentin (NEURONTIN) 300 mg capsule Take morning of surgery glimepiride (AMARYL) 2 mg tablet Don't take on day of surgery hydroCHLOROthiazide 12.5 mg tablet Take morning of surgery icosapent ethyL (VASCEPA) 1 gram capsule Don't take on day of surgery insulin glargine 100 unit/mL (3 mL) pen for injection 30 units the night before surgery 30 units the morning of surgery linaGLIPtin (TRADJENTA) 5 mg tablet Take morning of surgery lisinopriL (PRINIVIL,ZESTRIL) 5 mg tablet Take morning of surgery meloxicam (MOBIC) 15 mg tablet Per surgeon's instructions oxyCODONE (ROXICODONE) 10 mg tablet Take on day of surgery if needed pantoprazole DR (PROTONIX) 40 mg EC tablet Take morning of surgery semaglutide (Ozempic) 2 mg/dose (8 mg/3 mL) pen injector injection Don't take on day of surgery tiZANidine (ZANAFLEX) 4 mg tablet Take on day of surgery if needed traMADoL (ULTRAM) 50 mg tablet Take on day of surgery if needed Your surgeon will tell you IF YOU SHOULD STOP the following medications and WHEN TO STOP taking them. Do not stop taking them on your own without being told to do so: rivaroxaban (Xarelto) 2.5 mg tablet aspirin 81 mg enteric coated tablet General Instructions For Medications: For medications that you are instructed to take on the morning of surgery, take the medications with a few sips of water. Stop all of these medications 7-14 days prior to your surgery: Vitamin E, Herbal medicines, Diet Pills If you take aspirin, do not stop taking it unless you were instructed to do so. If you have pain, you may take tylenol (acetaminophen). Do not take more than 6 tablets or 3000 mg (3 g) within a 24 period. Call your surgeon and the CPAP clinic if any of the following happens before surgery: Any changes in your health You have a fever You have any signs of an infection (chest, urinary tract or tooth) You have been to the Emergency Room or were in the hospital You have started taking any new medications If laboratory testing was completed during your visit, we will only contact you regarding any results that require you to take additional action prior to your planned procedure. * Perioperative Nursing Note - Gricelda Farooq RN - 04/03/2025 12:40 PM CDT Center for Preoperative Assessment and Planning Perioperative Nursing Note PAP Modalities - [facility]: Telephone Preoperative Evaluation ([facility]) - TELEPHONE ONLY, NO PHYSICAL EXAM Date: 04/03/25 This assessment was completed with the patient. Vitals: 04/03/25 1240 Weight: 97.1 kg (214 lb) Height: 175.3 cm (5' 9) Social History Tobacco Use Smoking Status Former Current packs/day: 0.00 Average packs/day: 1 pack/day for 9.4 years (9.4 ttl pk-yrs) Types: Cigarettes Start date: 1985 Quit date: 01/18/1995 Years since quittin.2 Smokeless Tobacco Never Substance and Sexual Activity Drug Use Yes Types: Alcohol Comment: rare Alcohol Use Q1: How often do you have a drink containing alcohol?: 2-4 times a month Q2: How many drinks containing alcohol do you have on a typical day when you are drinking?: 1 or 2 Q3: How often do you have six or more drinks on one occasion?: Never Outpatient Medications Marked as Taking for the 04/17/25 encounter (Hospital Encounter) Medication Sig Dispense Refill acetaminophen (TYLENOL) 500 mg tablet Take 2 tablets (1,000 mg total) by mouth every 8 (eight) hours as needed for pain (Patient taking differently: Take 2 tablets (1,000 mg total) by mouth every 6 (six) hours as needed for pain) 60 tablet 0 aspirin 81 mg enteric coated tablet Take 1 tablet (81 mg total) by mouth every morning atorvastatin (LIPITOR) 40 mg tablet Take 1 tablet (40 mg total) by mouth every morning calcitRIOL (ROCALTROL) 0.25 mcg capsule Take 1 capsule (0.25 mcg total) by mouth 3 (three) times a week Wednesday, Wednesday, Wednesday empagliflozin (JARDIANCE) 25 mg tablet Take 1 tablet (25 mg total) by mouth every morning ergocalciferol (VITAMIN D) 50,000 unit capsule Take 1 capsule (50,000 Units total) by mouth once a week Wednesday morning ezetimibe (ZETIA) 10 mg tablet Take 1 tablet (10 mg total) by mouth every morning famotidine (PEPCID) 20 mg tablet Take 1 tablet (20 mg total) by mouth every morning finerenone (Kerendia) 20 mg tablet Take 20 mg by mouth every morning gabapentin (NEURONTIN) 300 mg capsule Take 1 capsule (300 mg total) by mouth 3 (three) times a day (Patient taking differently: Take 1 capsule (300 mg total) by mouth 3 (three) times a day) 90 capsule 1 glimepiride (AMARYL) 2 mg tablet Take 1 tablet (2 mg total) by mouth daily before breakfast hydroCHLOROthiazide 12.5 mg tablet Take 1 tablet/capsule (12.5 mg total) by mouth every morning icosapent ethyL (VASCEPA) 1 gram capsule Take 2 capsules (2 g total) by mouth 2 (two) times a day insulin glargine 100 unit/mL (3 mL) pen for injection Inject 38 Units under the skin 2 (two) times a day linaGLIPtin (TRADJENTA) 5 mg tablet Take 1 tablet (5 mg total) by mouth every morning lisinopriL (PRINIVIL,ZESTRIL) 5 mg tablet Take 1 tablet (5 mg total) by mouth every morning meloxicam (MOBIC) 15 mg tablet TAKE 1 TABLET EVERY DAY (Patient taking differently: Take 1 tablet (15 mg total) by mouth every morning) 90 tablet 3 oxyCODONE (ROXICODONE) 10 mg tablet Take 1 tablet (10 mg total) by mouth every 4 (four) hours as needed for pain (Patient taking differently: Take 1 tablet (10 mg total) by mouth every 4 (four) hoursas needed for pain More than a month; last use approx 08/2024 after spine surgery) [address] (PROTONIX) 40 mg EC tablet Take 1 tablet (40 mg total) by mouth nightly pen needle, diabetic (BD Ultra-Fine Dali Pen Needle) 32 gauge x 5/32 needle rivaroxaban (Xarelto) 2.5 mg tablet Take 1 tablet (2.5 mg total) by mouth 2 (two) times a day semaglutide (Ozempic) 2 mg/dose (8 mg/3 mL) pen injector injection Inject 2 mg under the skin every7 days Takes on Saturdays tiZANidine (ZANAFLEX) 4 mg tablet TAKE 1 TABLET (4 MG TOTAL) BY MOUTH EVERY 6 (SIX) HOURS NEEDEDFOR MUSCLE SPASMS (Patient taking differently: Take 1 tablet (4 mg total) by mouth every 6 (six) hours as needed for muscle spasms More than a month) 120 tablet 11 traMADoL (ULTRAM) 50 mg tablet Take 1 tablet (50 mg total) by mouth 3 (three) times a day as neededfor pain for up to 7 days (Patient taking differently: Take 1 tablet (50 mg total) by mouth every 8(eight) hours as needed for pain) 21 tablet 0 Implants Stent Stent - Implanted Heart As of 04/03/2025 Status: Implanted Type Not Specified [employer] Ar-2267 Supervisor Inspection Large Eyelet Pectoralis Button Fixation Latex Free - [id number] - Implanted (Right) Inventory item: [employer] Supervisor Inspection Large Eyelet Pectoralis Button Fixation Latex Free [id number] Model/Cat number: [id number] Lodge Officer: [employer] Lot number: [id number] As of 01/22/2020 Status: Implanted [employer] Ar-1927bct Corkscrew Suturetape 5.5mm 14.7mm Bioabsorbable Full Thread 1.3mm - [id number] - Implanted (Right) Shoulder Inventory item: [employer] Corkscrew Suturetape 5.5mm 14.7mm Bioabsorbable Full Thread 1.3mm [id number] Model/Cat number: [id number] Lodge Officer: [employer] Lot number: [id number] As of 01/22/2020 Status: Implanted [employer] Ar-1927bct Corkscrew Suturetape 5.5mm 14.7mm Bioabsorbable Full Thread 1.3mm - [id number] - Implanted (Right) Shoulder Inventory item: [employer] Corkscrew Suturetape 5.5mm 14.7mm Bioabsorbable Full Thread 1.3mm [id number] Model/Cat number: [id number] Lodge Officer: [employer] Lot number: [id number] As of 01/22/2020 Status: Implanted [employer] Ar-1927bct Corkscrew Suturetape 5.5mm 14.7mm Bioabsorbable Full Thread 1.3mm - [id number] - Implanted (Right) Shoulder Inventory item: [employer] Corkscrew Suturetape 5.5mm 14.7mm Bioabsorbable Full Thread 1.3mm [id number] Model/Cat number: [id number] Lodge Officer: [employer] Lot number: [id number] As of 01/22/2020 Status: Implanted [employer] Ar-2324 Bcm Swivelock 4.75mm 24.5mm Self Punch Vent Shoulder Naselle Suture - [id number] Implanted (Right) Shoulder Inventory item: [employer] AR-2324 BCM Swivelock 4.75mm 24.5mm Self Punch Vent Shoulder Naselle Suture Model/Cat number: [id number] Lodge Officer: [employer] Lot number: [id number] As of 01/22/2020 Status: Implanted [employer] Ar-2324 Bcm Swivelock 4.75mm 24.5mm Self Punch Vent Shoulder Naselle Suture - [id number]- Implanted (Right) Shoulder Inventory item: [employer] AR-2324 BCM Swivelock 4.75mm 24.5mm Self Punch Vent Shoulder Naselle Suture Model/Cat number: [id number] Lodge Officer: [employer] Lot number: [id number] As of 01/22/2020 Status: Implanted [employer] Infuse 20ga 2x1in Vial Absorbable Syringe Needle Medium Graft 5.6 [id number] - [id number] - Implanted (Left) Spine Lumbar Inventory item: [employer] Kit Graft Bone Sponge Med 20ga Infuse 5.6cc Granules [id number] Model/Cat number: [id number] Lodge Officer: [employer] As of 06/16/2024 Status: Implanted [employer] Cage Spinal Lumbar 0 Degree Dlif Expandable Rise L [id number] Titanium 193.305 - [id number] - Implanted Spine Lumbar Inventory item: [employer] Cage Spinal Lumbar 0 Degree Dlif Expandable Rise L [id number] Titanium 193.305 Model/Cat number: [id number] Lodge Officer: [employer] Size: 18x55, 7-14 As of 06/16/2024 Status: Implanted [employer] 1134.01 Creo Mis 30mm Modular Polyaxial Tulip Head Screw Bone - [id number] - Implanted Spine Lumbar Inventory item: [employer] 1134.01 Creo Mis 30mm Modular Polyaxial Tulip Head Screw Bone Model/Cat number: [id number] Lodge Officer: [employer] As of 06/16/2024 Status: Implanted [employer] 1134.001 Creo Spinal Cap Locking Nonsterile Mis - [id number] - Implanted Spine Lumbar Inventory item: [employer] 1134.001 Creo Spinal Cap Locking Nonsterile Mis Model/Cat number: [id number] Lodge Officer: [employer] As of 06/16/2024 Status: Implanted [employer] Creo 6.5mm 50mm Cannulated Modular Spine Screw Bone 1067.4650 - [id number] - Implanted Spine Lumbar Inventory item: [employer] Creo 6.5mm 50mm Cannulated Modular Spine Screw Bone 1067.4650 Model/Cat number: [id number] Lodge Officer: [employer] As of 06/16/2024 Status: Implanted [employer] Stephan Spinal Lumbar Prebent Creo Mis 5.5x60mm Titanium 1134.7060 - [id number] - Implanted Spine Lumbar Inventory item: [employer] Stephan Spinal Lumbar Prebent Creo Mis 5.5x60mm Titanium 1134.7060 Model/Cat number: [id number] Lodge Officer: [employer] As of 06/16/2024 Status: Implanted [employer] Freeze Dried Chips 4-10mm Graft 30ml Bone Cancellous [id number] - [id number] - Implanted Spine Lumbar Inventory item: [employer] Freeze Dried Chips 4-10mm Graft 30ml Bone Cancellous [id number] Model/Cat number: [id number] Lodge Officer: [employer] Lot number: [id number] As of 06/16/2024 Status: Implanted SKIN Piercings Remaining: No Wound (LDAs) Type of Wound (LDA): (denies) SCREENINGS Angel index score: 100 Travel/Exposure Screening: Travel Screening Have you traveled outside the [place] 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 General Information Discussed with Patient: Surgery location provided to patient. Arrival time and surgical time will be provided to the patient by their surgeon. You should wear clothing that is clean, loose, comfortable and easy to get in and out of on the dayof surgery. You should remove nail coverings, artificial nails and nail bulgarian prior to the day of surgery. This is to lower your risk of infection and to allow the day of surgery team to monitor your oxygen levels. You should leave your valuables and any jewelry at home. No metal or piercings are allowed in the operating room. You should bring your insurance card, a photo ID (example: Apartment Maintenance's License) and a method of payment for any insurance copay, deductible or copay for discharge medications. You should bring a complete, up-to-date, list of all your medications on the day of surgery, including any over the counter medications or supplements you may take. Please note on your medication list, the last date & time you took each medication. The healthcare team, on the day of surgery, will ask for this information. You should bring your Advanced Directive and/or Living Will with you on the day of surgery if you have not verified a copy is already in your Epic Chart. If you are having surgery at [facility], please arrive on the day of surgery with the name and phone number of your local 24 hour pharmacy. Due to evening discharges, your routine pharmacy may be closed. In order to obtain your prescriptions that evening, your surgeon may need to send prescriptions to this pharmacy or have you take prescriptions to this pharmacy when you are discharged. Without this information, you may not be able to obtain your prescriptions that evening. 10. If you smoke, STOP smoking at least 2 weeks before surgery to help prevent infection and help your body recover faster. Ask your surgeon for tools to help you quit or call 9-113-ZMXWFGP ( ). Visit Smokefree.gov for more information. You will not have access to tobacco products, alcohol or illegal drugs during your hospital stay. Eye Surgery Process for Patients: N/A A Guide for Patients Having Surgery: Your Pathway to Excellent Care OUR GOAL IS TO PROVIDE YOU WITH EXCELLENT CARE Use this guide to learn about what you can do before, during and after surgery to help your recovery. You are the most important person on your health care team. By becoming informed and involved, you can contribute to the success of your surgery. If your surgeon's directions are different than those in this guide, talk with your nurse or surgeon to confirm the information. It is important that you understand how to take care of yourself at home after surgery. Be sure to bring this guide with you on the day of surgery and take it home with you after surgery. Write down questions for your nurse or surgeon on the last page of this booklet. Important pages to be reviewed BEFORE surgery: Page 1: QR codes for Surgery Center maps Page 3: Types of Anesthesia Page 5: Tips for the day & night before surgery Page 6: When to stop eating BEFORE surgery and examples of clear liquids Page 7-10: Preventing Infection: Chlorhexidine Gluconate (CHG) Bathing Instructions You may access A Guide for Patients Having Surgery: Your Pathway to Excellent Care by the followinglink: [email or web address] How To Prepare Your Skin For Surgery Below is the Pre-Surgical Bathing Protocol you should follow for your surgery. If your surgeon provides you different bathing instructions, please follow your surgeon's orders. Normal Bathing Protocol Bathe with your normal soap the night before and/or the morning of surgery. Wear clean clothes or pajamas to sleep in. After showering DO NOT put on deodorant, hair products, conditioners, lotions, creams, powders, Vaseline or any non-essential products. Remove nail coverings, artificial nails and nail bulgarian. Place clean linens on your bed the night before surgery. Shaving: You may shave your face, legs and underarms during your evening shower. Avoid shaving on the day of surgery. If you have questions, please call the CPAP Staff at [phone], Wednesday-Wednesday 8am-4:30pm. All patients should read the below section: Information on [facility]: Please view [email or web address] (Patient & Visitor Information) for additional details regarding Advanced Directive forms, AWARE, directions, parking information, lodging, Internet access, dining and more. Information on [facility] or [facility] ([facility]): Please view [email or web address] (Patient and Visitor Information) for parking, directions, lodging and more. For MyChart information, to activate account or password recovery, please go to [email or web address] or call [phone] (toll-free: [phone]), Wed- Wednesday 8am-5pm. Information for Suicide Prevention: National Suicide Prevention Lifeline (6-757- 828-ZOUZ (6421)) or call or text Audio Network. Chat resources: [place] [place] [employer]. Surgery Times: For patients having surgery @ [facility] or [facility] ([facility]), if your surgeon's office has not notified you of your surgery time by NOON THE BUSINESS DAY BEFORE your surgery, please call your surgeon's office Aneesh Kern MD . You may also call [phone] and ask for your surgeon's office. For patients having surgery @ [facility], if your surgeon's office has not notified you of your surgery time by 2pm THE BUSINESS DAY BEFORE your surgery, please call your surgeon's office Aneesh Kern MD . You may also call the surgery center at [phone] and ask for your surgeon's office. For patients having [facility] @ [facility], if your surgeon's office or the surgery centerhas not notified you of your surgery time by 3pm THE BUSINESS DAY BEFORE your surgery, please call the surgery center at [phone]. The [facility] ([facility]) does not provide arrival times for theday of surgery or provide the duration of surgery. This information is provided by your surgeon's office or by the center where you are having surgery. We appreciate your understanding. documented in this encounter Plan of Treatment Not on file documented as of this encounter Procedures Procedure Name Priority Date/Time Associated Diagnosis Comments TRANSFER MUSCLE 05/08/2025 9:08 AM CDT Right carpal tunnel syndrome Case Notes 04/12@1621:r/s case to 05/08 per Dianne via phone. BR03/12@0906: MISSING [facility] EMAIL SENT TO [facility] Special Ne[facility] IDDM - ADHESIVE ALLERGY RELEASE CARPAL TUNNEL 05/08/2025 9:08 AM CDT Right carpal tunnel syndrome Case Notes 04/12@1621:r/s case to 05/08 per Dianne via phone. BR03/12@0906: MISSING [facility] EMAIL SENT TO [facility] Special Needs IDDM - ADHESIVE ALLERGY GLUCOSE, WHOLE BLOOD, POC Routine 05/08/2025 7:48 AM CDT documented in this encounter Results * Glucose, Whole Blood, POC (05/08/2025 7:48 AM CDT) Glucose POC 102 70 - 199 mg/dL Blood 05/08/2025 7:48 AM CDT 05/08/2025 7:48 AM CDT Aneesh Kern MD LAB BLOOD ORDERABLES Final Result [facility] Department [place] [address] documented in this encounter Visit Diagnoses Diagnosis Right carpal tunnel syndrome- Primary Carpal tunnel syndrome Right carpal tunnel syndrome Carpal tunnel syndrome documented in this encounter Admitting Diagnoses Diagnosis Right carpal tunnel syndrome Carpal tunnel syndrome documented in this encounter Administered Medications Inactive Administered Medications - up to 3 most recent administrations Medication Order MAR Action Action Date Dose Rate Site HYDROcodone-acetaminophen (NORCO) 5-325 mg per tablet 1 tablet 1 tablet, oral, Every 30 min PRN, 2nd line for pain, Starting on Wed05/08/25 at 1030, For 2 doses, Phase I, Indications: PainIndications:Pain Given 05/08/2025 11:13 AM CDT 1 tablet Lactated Ringer's (LR) infusion 100 mL/hr, intravenous, Continuous, Starting on Wed05/08/25 at 0800, Pre-Op, Run to gravity during nerve block, and if there is a delay of more than 15 minutes after nerve block before going to OR, place back on pump. Give a 500 ml Bolus under gravity for shoulder cases. New Bag 05/08/2025 10:09 AM CDT Restarted 05/08/2025 9:06 AM CDT Rate/Dose Verify 05/08/2025 9:02 AM CDT 100 mL/ hr Lactated Ringer's (LR) infusion 125 mL/hr, intravenous, Continuous, Starting on Wed05/08/25 at 1115, Phase I, Continue LR if patient arrives in PACU with LR. Switch to NS for subsequent bags. New Order/Same Infusion 05/08/2025 10:34 AM CDT 125 mL/hr 125 mL/hr lidocaine (PF) (XYLOCAINE) 10 mg/mL (1 %) preservative free injection 2-10 mg 2-10 mg (0.2-1 mL), subcutaneous, Once as needed, pain with IV placement, Starting on Wed05/08/25 at 0723, For 1 dose, Pre-Op, Administer volume needed to infiltrate IV site. Given 05/08/2025 7:53 AM CDT 4 mg Other (Comment) documented in this encounter Discontinued Medications Medication Sig Discontinue Reason Start Date End Da te oxyCODONE (ROXICODONE) 10 mg tabletIndications:Pain Take 1 tablet (10 mg total) by mouth every 4 (four) hours as needed for pain Therapy completed 06/18/2024 04/03/2025 chlorhexidine (HIBICLENS) 4 % external liquidIndications:Skin Disinfection Use soap daily with showering for 5 days prior to surgery Therapy completed 05/31/2024 04/03/2025 mupirocin (BACTROBAN) 2 % ointment Place small amount of ointment in each nostril with a q-tip twice daily for 5 days prior to surgery Therapy completed 05/31/2024 04/03/2025 documented as of this encounter Historical Medications * This list may reflect changes made after this encounter. fish oil-dha-epa 1,200-144-216 mg capsule Take by mouth added in this encounter Active and Recently Administered Medications Times are shown in CDT. Scheduled Medication Order 05/06/2025 05/07/2025 05/08/2025 ceFAZolin (ANCEF) 2,000 mg/50 mL in dextrose (premix) 2,000 mg (COMPLETED) 2,000 mg, intravenous, at 100 mL/hr, Administer over 30 Minutes, Once, On 05/08/25 at 0800, For 1 dose, Pre-Op, Administer within 60 minutes of incision. Duplex bag - activate before hanging., Indications: Prophylaxis, Surgical 0911 (Given - Provid er: Polina Starkey CRNA) scopolamine patch 72 hour 1 patch 1 patch, transdermal, Administer over 72 Hours, Once, On Wed05/08/25 at 0800, For 1 dose, Pre-Op 0800 (Due) Continuous Medication Order 05/06/2025 05/07/2025 05/08/2025 Lactated Ringer's (LR) infusion 100 mL/hr, intravenous, Continuous, Starting on Wed05/08/25 at 0800, Pre-Op, Run to gravity during nerve block, and if there is a delay of more than 15 minutes after nerve block before going to OR, place back on pump. Give a 500 ml Bolus under gravity for shoulder cases. 0749 (New Bag - Prov ider: Mikala Terry RN)0902 (Rate/Dose Verify - Provider: Polina Starkey CRNA)0903 (Stopped - Provider: Mikala Terry RN)0906 (Restarted - Provider: Polina Starkey CRNA)1009 (New Bag - Provider: Polina Starkey CRNA)1539 (Due: Stopped) Lactated Ringer's (LR) infusion 125 mL/hr, intravenous, Continuous, Starting on Wed05/08/25 at 1115, Phase I, Continue LR if patient arrives in PACU with LR. Switch to NS for subsequent bags. 1034 (New Order/Same Infusion - Provider: Sofia Covington, LUIS E)1118 (Stopped - Provider: Sofia Covington, LUIS E) PRN Medication Order 05/06/2025 05/07/2025 05/08/2025 BUPivacaine (MARCAINE) 0.5 % (5 mg/mL) preservative free injection (CANCELED) As needed, Starting on Wed05/08/25 at 1011, Intra-Op 1011 (Given - Provid er: Aneesh Kern MD) diphenhydrAMINE (BENADRYL) 50 mg/mL injection 12.5 mg 12.5 mg, intravenous, Administer over 1 Minutes, Every 5 min PRN, itching, other, For Nausea, administer 25 mg IV., Starting on Wed05/08/25 at 1030, For 4 doses, Phase I, Max cumulative dose 50 mg., Indications: Itching fentaNYL (SUBLIMAZE) preservative free syringe 25 mcg 25 mcg, intravenous, Every 10 min PRN, 1st line for pain, Starting on Wed05/08/25 at 1030, For 4 doses, Phase I, Notify anesthesiologist if total PACU dose reaches 100 mcg AND pain score 5/10 or more. When patient able to tolerate PO, proceed to 2nd line analgesic agent for pain management., Indications: Pain hydrALAZINE (APRESOLINE) injection 5 mg 5 mg, intravenous, Administer over 2 Minutes, Every 5 min PRN, high blood pressure, Starting on Wed05/08/25 at 1030, Phase I, Max cumulative dose 20 mg. Dose if systolic BP greater than 180 AND heart rate less than 70., Indications: hypertension HYDROcodone-acetaminophen (NORCO) 5-325 mg per tablet 1 tablet 1 tablet, oral, Every 30 min PRN, 2nd line for pain, Starting on Wed05/08/25 at 1030, For 2 doses, Phase I, Indications: Pain 1113 (Given - Provid er: Sofia Covington RN) labetaloL (NORMODYNE,TRANDATE) injection 5 mg 5 mg, intravenous, Every 5 min PRN, high blood pressure, Starting on Wed05/08/25 at 1030, For 4 doses, Phase I, Max cumulative dose 20 mg. Dose if systolic blood pressure greater than 180 AND HR greater than 70. lidocaine (PF) (XYLOCAINE) 10 mg/mL (1 %) preservative free injection 2-10 mg (COMPLETED) 2-10 mg (0.2-1 mL), subcutaneous, Once as needed, pain with IV placement, Starting on Wed05/08/25 at 0723, For 1 dose, Pre-Op, Administer volume needed to infiltrate IV site. 0753 (Given - Provid er: Mikala Terry RN - Comment: uma fish) naloxone (NARCAN) 0.4 mg/mL injection 0.04-0.4 mg 0.04-0.4 mg, intravenous, Once as needed, other, excessive sedation/respiratory depression, Starting on Wed05/08/25 at 1030, For 1 dose, Phase I, Dilute 0.4 mg with 9 mL NS (final concentration 0.04 mg/mL). For respiratory depression (respiratory rate less than 6), administer 0.4 mg IVP over 30 seconds. For excessive sedation administer 0.04 mg (1 mL) every 1 minute until desired level of alertness. Consult with Anesthesiologist before administration. Administer 40 mics at a time. For IV, administer over 30 seconds., Indications: Opioid Toxicity ondansetron (ZOFRAN) injection 4 mg 4 mg, intravenous, Administer over 2 Minutes, Once as needed, nausea, vomiting, Starting on Wed05/08/25 at 1030, For 1 dose, Phase I, Proceed to prochlorperazine if ondansetron has been given within the last 6 hours. prochlorperazine (COMPAZINE) injection 5 mg 5 mg, intravenous, Administer over 2 Minutes, Once as needed, nausea, vomiting, May give second 5 mg dose if nausea not improved after 15 minutes., Starting on Wed05/08/25 at 1030, For 2 doses, Phase I, If nausea/vomiting not relieved by ondansetron within 30 minutes or if ondansetron has been given within the last 6 hours. sodium chloride 0.9% flush 0.5-20 mL 0.5-20 mL, intra-catheter, As needed, line care, Flush Hazel Block Hep Locks to keep vein open., Starting on Wed05/08/25 at 0723, Pre-Op, Flush volume based on line type and size. Flush before and after each use. , Indications: Flushing sodium chloride 0.9% irrigation (CANCELED) As needed, Starting on Wed05/08/25 at 1011, Intra-Op 1011 (Given - Provid er: Aneesh Kern MD) documented in this encounter Orders Medications Ordered That Qamar ht Not Have Been Administered Count Last Ordered Date First Ordered Date BUPivacaine (MARCAINE) 0.5 % (5 mg/mL) preservative free injection 1 05/08/2025 ceFAZolin (ANCEF) 2,000 mg/5 0 mL in dextrose (premix) 2,000 mg 1 05/08/2025 diphenhydrAMINE (BENADRYL) 5 0 mg/mL injection 12.5 mg 1 05/08/2025 fentaNYL (SUBLIMAZE) preserv ative free syringe 25 mcg 1 05/08/2025 hydrALAZINE (APRESOLINE) injection 5 mg 1 0 05/08/2025 labetaloL (NORMODYNE,TRANDAT E) injection 5 mg 1 05/08/2025 lidocaine (PF) (XYLOCAINE) 1 0 mg/mL (1 %) preservative free injection 2-10 mg 1 05/08/2025 naloxone (NARCAN) 0.4 mg/mL injection 0.04-0.4 mg 1 05/08/2025 ondansetron (ZOFRAN) injection 4 mg 1 05/08 prochlorperazine (COMPAZINE) injection 5 mg 1 05/08/2025 scopolamine patch 72 hour 1 patch 1 025 sodium chloride 0.9% flush 0.5-20 mL 1 04/17 sodium chloride 0.9% irrigation 1 5 Discharge Count Last Ordered Date First Orde red Date DISCHARGE PATIENT 1 05/08/2025 documented in this encounter Care Teams Monitor Worker Relationship Specialty Start Date End Date Mushtaq Cox MD [address] [facility] [place] [address] PCP - General Family Medicine 09/04/20 Deacon Gates MD [address] [facility] [place] [address] Consulting Physician Cardiology 05/24/24 Twila Corona MD [address] [place] [address] Referring Physician Nephrology 05/29/24 documented as of this encounter
--- OUTSIDE RECORDS SUMMARY | 2025-05-08 09:00 | XMS_ITS | Encounter Summary ---
Author Organization [facility] Healthcare Address [address] [place] [address] Care Team Providers Care Fisheries Inspector Name Role Phone Mushtaq Cox MD Primary Care Provider [phone] Deacon Gates MD Unavailable Twila Corona MD Unavailable [phone] Reason for Visit * Auth/Cert (Routine) Specialty Diagnoses / Procedures Referred By Contalize t Referred To Contact Diagnoses Right carpal tunnel syndrome Right carpal tunnel syndrome [G56.01] Procedures HC KIT [id number] CARPAL TUNNEL RELEASE WV NEURP MAJOR PRPH NRV ARM/LEG OPN OTH/THN SPEC WV NEUROPLASTY &/TRANSPOS MEDIAN NRV CARPAL TUNNE WV TNOT FLXR/XTNSR TENDON FOREARM&/WRIST 1 EA right RELEASE CARPAL TUNNEL right pronatoar release Referral ID Status Reason Start Date Expiration Date Visits Re quested Visits Authorized [id number] 1 1 Encounter Details Date Type Department Care Team (Late st Contact Info) Description 05/08/2025 9:00 AM CDT - 05/08/2025 10:15 AM CDT Surgery [facility] [address] [place] [id number] Aneesh Kern MD [address] [facility] 6A/6B[address] [place] [address] right RELEASE CARPAL TUNNEL Surgery Details Date/Time Status Location OR Service Patient Class Case Class Case Type Trauma Case? 05/08/2025 9:00 AM Posted [facility] OC OPERATING ROOM OR 5 Orthopaedics Outpatient Elective Panel 1 Procedure LRB Anes Op Region Wound Class Comments right RELEASE CARPAL TUNNEL Right Choice Wrist Cl ass I - Clean right pronatoar release Right Choice Arm Lower Class I - Clean Surgeon Surgeon Role Service Panel Ross Mukherjee MD Fellow Orthopaedics 1 Aneesh Kern MD Primary Orthopaedics 1 Case Notes 04/12@1621:r/s case to 05/08 per Dianne via phone. BR03/12@0906: MISSING [facility] EMAIL SENT TO 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 Monthly or less 05/08/2025 7:35 AM Mikala Jones RN Q2: How many drinks containing alcohol do you have on a typical day when you are drinking? 1 or 2 05/08/2025 7:35 AM Mikala Jones RN Q3: How often do you have six or more drinks on one occasion? Never 05/08/2025 7:35 AM TRISTANT Mikala Terry RN documented as of this encounter Discharge Instructions * Discharge Instructions* Aneesh Kern MD - 05/07/2025 2:17 PM CDT Postoperative Instructions [facility] [place] -[address] [facility] [id number] [facility]- [address] [place] [address] [address] Your first postoperative appointment is [...] HOURS: Wednesday - Wednesday 8:00 - 4:30 Paver Installer: Dianne Trinidad AFTER HOURS/WEEKEND - EMERGENCIES ONLY (NO MED REFILLS): Medical Exchange: [phone] or toll-free Perioperative Narcotic Considerations The Orthopedic hand surgeons of [facility] manage perioperative pain as wellas the pain after an acute injury. Our surgeons do not manage chronic pain (pain three months afterthe injury/surgery), and will refer patients seeking longer term care for their painful condition to a pain management service or their primary physician as those physicians typically establish railroad conductor treatment relationships with patients. Following elective hand [...] period) may need a greater number of Stephen tablets to lastthe during the therapy period. [...] be called in to your pharmacy if ???vasq-lmg-zgqjhno??? anti- inflammatory pain medication do not decrease the pain even when taken on a regular basis. These can be called in during the hours 9am to 4pm, during the workweek. ???Alternative??? treatments such as acupuncture, meditation and biofeedback can all be used to decrease post-operative pain. The Orthopedic hand surgeons of [facility] want you to be as comfortable [...] interpretation of pain. The ???opioid epidemic??? in [place] is very real, and we as physicians [...] in this encounter H&P Notes * Saritha Venegas NP - 05/08/2025 7:24 AM CDT Outpatient Pre-Procedure [...] KUB Bilateral 05/01/2024 FUNCTIONAL ENDOSCOPIC SINUS SURGERY 2017 IR INJECTION ARTHROGRAM SI JOINT BILATERAL WITH [...] by mouth once a week Wednesday morning 05/06/2025 ezetimibe (ZETIA) 10 mg tablet Take 1 [...] tendon Attending Surgeon: Aneesh Kern MD, M.Sc. Ware Tester: 1. Ross Mukherjee MD There was no [...] tourniquet inflated to 250 mm Hg. A [place] block was performed by our anesthesia colleagues. [...] Vicryl suture. The wound was then thoroughly irrigated,tourniquet was released and meticulous hemostasis was obtained. [...] that you and your doctor have chosen [facility] for your surgery. We hope the following information will help make your visit a pleasant one. The name of the building is [facility] in [place]. Directions to facility (address [place] [address] [place] [address] road, [address]. [place] [address] When you enter the building, look directly to your left, you will see 2 glass double doors. These double doors say [address]. Go through those double doors and check in with the signal tester. Bring pillows, leave in car. Wear loose-fitting [...] out. Instructed to patient to refer to [facility] surgery guide page 6 for any questions [...] that you and your doctor have chosen [facility] for your surgery. We hope the following information will help make your visit a pleasant one. * Pre-Procedure Instructions - Linda Montoya NP - 04/06/2025 10:22 AM CDT Center for Preoperative Assessment and Planning CPAP Clinic Location: [facility] - CPAP The night before your surgery: * [...] Planning Perioperative Nursing Note PAP Modalities - [facility]: Telephone Preoperative Evaluation ([facility]) - TELEPHONE ONLY, NO PHYSICAL EXAM Date: [...] Implanted Type Not Specified [employer] Ar-2267 Gas Analyst Large Eyelet Pectoralis Button Fixation Latex Free - [id number] - Implanted (Right) Inventory item: [employer] Gas Analyst Large Eyelet Pectoralis Button Fixation Latex Free AR-2267 Model/Cat number: [id number] Last Model Department Supervisor: [employer] Lot number: [id number] As of 01/22/2020 Status: Implanted [employer] Ar-1927bct Corkscrew Suturetape 5.5mm 14.7mm Bioabsorbable Full Thread 1.3mm - [id number] - Implanted (Right) Shoulder Inventory item: [employer] Corkscrew Suturetape 5.5mm 14.7mm Bioabsorbable Full Thread 1.3mm AR-1927BCT Model/Cat number: [id number] Last Model Department Supervisor: [employer] Lot number: [id number] As of 01/22/2020 Status: Implanted [employer] Ar-1927bct Corkscrew Suturetape 5.5mm 14.7mm Bioabsorbable Full Thread 1.3mm - [id number] - Implanted (Right) Shoulder Inventory item: [employer] Corkscrew Suturetape 5.5mm 14.7mm Bioabsorbable Full Thread 1.3mm AR-1927BCT Model/Cat number: [id number] Last Model Department Supervisor: [employer] Lot number: [id number] As of 01/22/2020 Status: Implanted [employer] Ar-1927bct [place]kscrew Suturetape 5.5mm 14.7mm Bioabsorbable Full Thread 1.3mm - [id number] - Implanted (Right) Shoulder Inventory item: [employer] Corkscrew Suturetape 5.5mm 14.7mm Bioabsorbable Full Thread 1.3mm AR-1927BCT Model/Cat number: [id number] Last Model Department Supervisor: [employer] Lot number: [id number] As of 01/22/2020 Status: Implanted [employer] Ar-2324 Bcm Swivelock 4.75mm 24.5mm Self Punch Vent Shoulder Columbia Suture - [id number]- Implanted (Right) Shoulder Inventory item: [employer] AR-2324 BCM Swivelock 4.75mm 24.5mm Self Punch Vent Shoulder Columbia Suture Model/Cat number: [id number] Last Model Department Supervisor: [employer] Lot number: [id number] As of 01/22/2020 Status: Implanted [employer] Ar-2324 Bcm Swivelock 4.75mm 24.5mm Self Punch Vent Shoulder Columbia Suture - [id number]- Implanted (Right) Shoulder Inventory item: [employer] AR-2324 BCM Swivelock 4.75mm 24.5mm Self Punch Vent Shoulder Columbia Suture Model/Cat number: [id number] Last Model Department Supervisor: [employer] Lot number: [id number] As of 01/22/2020 Status: Implanted [employer] Infuse 20ga 2x1in Vial Absorbable Syringe Needle Medium Graft 5.6 [id number] - [id number] - Implanted (Left) Spine Lumbar Inventory item: [employer] Kit Graft Bone Sponge Med 20ga Infuse 5.6cc Granules [id number] Model/Cat number: [id number] Last Model Department Supervisor: [employer] As of 06/16/2024 Status: Implanted [employer] Cage Spinal Lumbar 0 Degree Dlif Expandable Rise L [id number] Titanium 193.305 - [id number] - Implanted Spine Lumbar Inventory item: [employer] Cage Spinal Lumbar 0 Degree Dlif Expandable Rise L [id number] Titanium 193.305 Model/Cat number: [id number] Last Model Department Supervisor: [employer] Size: 18x55, 7-14 As of 06/16/2024 Status: Implanted [employer] 1134.01 Creo Mis 30mm Modular Polyaxial Tulip Head Screw Bone - [id number] - Implanted Spine Lumbar Inventory item: [employer] 1134.01 Creo Mis 30mm Modular Polyaxial Tulip Head Screw Bone Model/Cat number: [id number] Last Model Department Supervisor: [employer] As of 06/16/2024 Status: Implanted [employer] 1134.001 Creo Spinal Cap Locking Nonsterile Mis - [id number] - Implanted Spine Lumbar Inventory item: [employer] 1134.001 Creo Spinal Cap Locking Nonsterile Mis Model/Cat number: [id number] Last Model Department Supervisor: [employer] As of 06/16/2024 Status: Implanted [employer] Creo 6.5mm 50mm Cannulated Modular Spine Screw Bone 1067.4650 - [id number] - Implanted Spine Lumbar Inventory item: [employer] Creo 6.5mm 50mm Cannulated Modular Spine Screw Bone 1067.4650 Model/Cat number: [id number] Last Model Department Supervisor: [employer] As of 06/16/2024 Status: Implanted [employer] Stephan Spinal Lumbar Prebent Creo Mis 5.5x60mm Titanium 1134.7060 - [id number] - Implanted Spine Lumbar Inventory item: [employer] Stephan Spinal Lumbar Prebent Creo Mis 5.5x60mm Titanium 1134.7060 Model/Cat number: [id number] Last Model Department Supervisor: [employer] As of 06/16/2024 Status: Implanted [employer]ource Freeze Dried Chips 4-10mm Graft 30ml Bone Cancellous [id number] - [id number] - Implanted Spine Lumbar Inventory item: [employer] Freeze Dried Chips 4-10mm Graft 30ml Bone Cancellous [id number] Model/Cat number: [id number] Last Model Department Supervisor: [employer] Lot number: [id number] As of 06/16/2024 Status: Implanted SKIN Piercings [...] directive Information Provided on Healthcare Directives: No Communication/Cotton Weigher Operator Needs Communication Needs: Glasses (readers) Assistive Devices/DME: Eyeglasses Discharge Planning Type of Residence: Private residence Living Arrangements: Spouse/significant other Support Systems: Spouse/significant other, Family members Patient expects to be discharged to: Private residence GENERAL ENGINEER NO ADDITIONAL COMMENTS/ FOLLOW UP * Pre-Procedure [...] remove nail coverings, artificial nails and nail trinidadian prior to the day of surgery. This is to lower your risk of infection and to allow the day of surgery team to monitor your oxygen levels. You should leave your valuables and any jewelry at home. No metal or piercings are allowed in the operating room. You should bring your insurance card, a photo ID (example: Filling Mixer's License) and a method of payment for [...] Chart. If you are having surgery at [facility], please arrive on the day of [...] tools to help you quit or call [phone] ( ). Visit [email or web address] for more information. You will not have [...] Pathway to Excellent Care by the followinglink: [email or web address] How To Prepare Your Skin For Surgery [...] Remove nail coverings, artificial nails and nail trinidadian. Place clean linens on your bed the night before surgery. Shaving: You may shave your face, legs and underarms during your evening shower. Avoid shaving on the day of surgery. If you have questions, please call the CPAP Staff at [phone], Wednesday-Wednesday 8am-4:30pm. All patients should read the below section: Information on [facility]: Please view [email or web address] (Patient & Visitor Information) for additional details regarding Advanced Directive forms, AWARE, directions, parking information, lodging, Internet access, dining and more. Information on [facility] or [facility] ([facility]): Please view [email or web address] (Patient and Visitor Information) for parking, directions, lodging and more. For MyChart information, to activate account or password recovery, please go to [email or web address] or call [phone] (toll-free: [phone]), Wed- Wednesday 8am-5pm. Information for Suicide Prevention: National Suicide Prevention Lifeline (3-365- 678-KSFE (3271)) or call or text 773. Chat resources: HackerOne.org. Surgery Times: For patients having surgery @ [facility] or [facility] ([facility]), if your surgeon's office has not notified you of your surgery time by NOON THE BUSINESS DAY BEFORE your surgery, please call your surgeon's office Aneesh Kern MD . You may also call [phone] and ask for your surgeon's office. For patients having surgery @ [facility], if your surgeon's office has not notified you of your surgery time by 2pm THE BUSINESS DAY BEFORE your surgery, please call your surgeon's office Aneesh Kern MD . You may also call the surgery center at [phone] and ask for your surgeon's office. For patients having surgery @ [facility], if your surgeon's office or the surgery centerhas not notified you of your surgery time by 3pm THE BUSINESS DAY BEFORE your surgery, please call the surgery center at [phone]. The Center for Preoperative Assessment & Planning ([facility]) does not provide arrival times for theday [...] 7:48 AM CDT 05/08/2025 7:48 AM CDT us Aneesh Kern MD LAB BLOOD ORDERABLES Final Result [facility]IL [facility] [place] [address] documented in this encounter Visit Diagnoses Diagnosis Right carpal tunnel syndrome- Primary Carpal tunnel syndrome Right carpal tunnel syndrome Carpal tunnel syndrome Right carpal tunnel syndrome Carpal tunnel syndrome documented in this encounter Admitting Diagnoses Diagnosis Right carpal tunnel syndrome Carpal tunnel syndrome documented in this encounter Administered Medications Inactive Administered Medications - up to 3 most recent administrations Medication Order MAR Action Action Date Dose Rate Site BUPivacaine (MARCAINE) 0.5 % (5 mg/mL) preservative free injection As needed, Starting on Wed05/08/25 at 1011, Intra-Op Given 05/08/2025 10:11 AM CDT 10 mL Surgical Site HYDROcodone-acetaminophen (NORCO) 5-325 mg per tablet [...] 7:53 AM CDT 4 mg Other (Comment) sodium chloride 0.9% irrigation As needed, Starting on Wed05/08/25 at 1011, Intra-Op Given 05/08/2025 10:11 AM CDT 500 mL Surgical Site documented in this encounter Discontinued Medications Medication [...] mL/hr, Administer over 30 Minutes, Once, On Wed05/08/25 at 0800, For 1 dose, Pre-Op, Administer within 60 minutes of incision. Duplex bag - activate before hanging., Indications: Prophylaxis, Surgical 910 (Given - Provid er: Polina Starkey, JUDY) scopolamine patch 72 hour 1 patch 1 [...] 0749 (New Bag - Prov ider: Mikala Terry, LUIS E)0902 (Rate/Dose Verify - Provider: Polina Starkey CRNA)0903 [...] 1034 (New Order/Same Infusion - Provider: Sofia Covington RN)1118 (Stopped - Provider: Sofia Covington RN) PRN Medication Order 05/06/2025 05/07/2025 05/08/2025 BUPivacaine [...] mL, intra-catheter, As needed, line care, Flush [place] Block Hep Locks to keep vein open., [...] Count Last Ordered Date First Ordered Date ceFAZolin (ANCEF) 2,000 mg/5 0 mL in dextrose (premix) 2,000 mg 1 05/08/2025 diphenhydrAMINE (BENADRYL) 5 0 mg/mL injection 12.5 mg 1 05/08/2025 fentaNYL (SUBLIMAZE) preserv ative free syringe 25 mcg 05/08/2025 hydrALAZINE (APRESOLINE) injection 5 mg 1 0 05/08/2025 labetaloL (NORMODYNE,TRANDAT E) injection 5 mg 05/08/2025 lidocaine (PF) (XYLOCAINE) 1 0 mg/mL (1 %) preservative free injection 2-10 mg 05/08/2025 naloxone (NARCAN) 0.4 mg/mL injection 0.04-0.4 mg 05/08/2025 ondansetron (ZOFRAN) injection 4 mg 05/08 prochlorperazine (COMPAZINE) injection 5 mg 05/08/2025 scopolamine patch 72 hour 1 patch 1 025 sodium chloride 0.9% flush 0.5-20 mL 1 04/17 Discharge Count Last Ordered Date First Orde red Date DISCHARGE PATIENT 1 05/08/2025 documented in this encounter Care Teams Fisheries Inspector Relationship Specialty Start Date End Date Mushtaq Cox MD [address] [place] [address] PCP - General Family Medicine 09/04/20 Deacon Gates MD [address] [facility] [place] [place] [address] Consulting Physician Cardiology 05/24/24 Twila Corona MD [address] [facility] [place] [address] Referring Physician Nephrology 05/29/24 documented as of this encounter
--- OUTSIDE RECORDS SUMMARY | 2025-05-08 09:02 | XMS_ITS | Encounter Summary ---
Author Organization [facility] Healthcare Address [address] [place] [address] Care Team Providers Care Callisthenics Instructor Name Role Phone Mushtaq Cox MD Primary Care Provider [phone] Deacon Gates MD Unavailable [phone] Twila Corona MD Unavailable [phone] Reason for Visit * Auth/Cert (Routine) Specialty Diagnoses / Procedures Referred By Contac t Referred To Contact Diagnoses Right carpal tunnel syndrome Right carpal tunnel syndrome [G56.01] Procedures HC KIT [id number] CARPAL TUNNEL RELEASE OH NEURP MAJOR PRPH NRV ARM/LEG OPN OTH/THN SPEC OH NEUROPLASTY &/TRANSPOS MEDIAN NRV CARPAL TUNNE OH TNOT FLXR/XTNSR TENDON FOREARM&/WRIST 1 EA right RELEASE CARPAL TUNNEL right pronatoar release Referral ID Status Reason Start Date Expiration Date Visits Re quested Visits Authorized [id number] 1 1 Encounter Details Date Type Department Care Team (Late st Contact Info) Description 05/08/2025 9:02 AM CDT Anesthesia Event [facility] [address] [place] [id number] Dom Phelan MD [address] [place] [address] Linda Montoya NP [address] [facility] [phone] [place], [place] [phone] (work) Anesthesia Record Procedure Summary Procedure Name Responsible Anesthesiologist Anesthesia Start Time Anesthesia Stop Time right RELEASE CARPAL TUNNEL (Right: Wrist) Dom Phelan MD 05/08/25 0902 05/08/25 1022 Events Date Time Event Comment 05/08/2025 0824 0902 An Start 0908 In Room 0909 AN Equip Check 0909 An Start Data 0909 Start Supplemental O2 0910 Time out - Regional 0916 An Block Induction The patie nt was reevaluated immediately before moderate or deep sedation and before anesthesia induction. 0916 [place] block placed 0916 Anesthesia Ready 0916 an jordan now Tourniquet infl ated 250 torr right upper arm 0922 Proc Start 0923 Incision Start 1012 Incision Close 1018 Proc Fin 1020 an stop data 1020 Handoff to RN I completed my handoff to the receiving nurse during which we: 1. Patient identified 2. Responsible provider identified 3. Pertinent medical history reviewed 4. Procedure type and surgical course discussed 5. Intraoperative anesthetic management and any significant issues discussed 6. Expectations and concerns for postop period discussed 7. Questions solicited from receiving nurse 8. Patient disposition at the time of handoff: PACU 1022 An Stop 1023 Out of Room Meds Name Total midazolam 2 mg/2 mL 2 mg fentaNYL PF 100 mcg propofol 20 mg lidocaine 0.5% PF 45 mL ondansetron PF 4 mg ceFAZolin (ANCEF) 2,000 mg/50 mL in dext danuta (premix) 2,000 mg 2,000 mg dexAMETHasone 4 mg/mL 8 mg dexmedeTOMIDine 12 mcg HYDROmorphone 1 mg/mL 0.8 mg Lactated Ringer's (LR) infusion 1,123.36 mL * Agents Name O2% N2O O2 N2O Air * Blood No blood administrations on file. Lines, Drains, and Airways Type Details Placement Removal Peripheral IV Placement Date: 04/17 11/07; Placement Time: 075; Catheter Size: 22 G; Orientation: Posterior, Right; Location: Hand; Site Prep: Chlorhexidine; Technique: Anatomical landmarks; Inserted by: LUIS E Bach; Insertion Attempts: 1; Patient Tolerance: Tolerated well 05/08/25 0752 by Mikala Terry RN Peripheral IV Placement Date: 04/17 11/07; Placement Time: 07; Catheter Size: 20 G; Orientation: Left, Posterior; Location: Hand; Site Prep: Chlorhexidine; Technique: Anatomical landmarks; Inserted by: LUIS E Hargrove; Insertion Attempts: 1; Patient Tolerance: Tolerated well; Removal Date: 05/08/25; Removal Time: 1120; Removal Reason: Discharge 05/08/25 0747 by Mikala Terry RN 05/08/25 1121 by Sofia Covington RN Wound 05/08/25; 0930; N; Incision; Forearm, Palm; Anterior, Right; 05/08/25; 1121; Other (discharge) 05/08/25 0930 by Dione Mandujano RN 05/08/25 112 by Sofia Covington RN documented in this encounter Social History Tobacco [...] on file 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 Monthly or less 05/08/2025 7:35 AM TRISTANT Mikala Terry RN Q2: How many drinks containing alcohol do you have on a typical day when you are drinking? 1 or 2 05/08/2025 7:35 AM CDT Mikala Terry RN Q3: How often do you have six or more drinks on one occasion? Never 05/08/2025 7:35 AM CDT Mikala Terry RN documented as of this encounter OR Notes * Anesthesia Postprocedure Evaluation - Dom Phelan MD - 05/08/2025 11:08 AM CDT Patient: Kieran Cohn Procedure Summary Date: 05/08/25 Room / Location: [facility] / [facility] Anesthesia Start: 901 Anesthesia Stop: 1021 Procedures: right RELEASE CARPAL TUNNEL (Right: Wrist) right pronatoar release (Right: Arm Lower) Diagnosis: Right carpal tunnel syndrome (Right carpal tunnel syndrome [G56.01]) Providers: Aneesh Kern MD Responsible Provider: Dom Phelan MD Anesthesia Type: regional as primary anesthetic, IV regional ASA Status: 2 Anesthesia Type: regional as primary anesthetic, IV regional Last vitals Vitals Value Taken Time BP 139/65 05/08/25 11:03 Temp 36.1 ??C (97 ??F) 05/08/25 10:25 Pulse 50 05/08/25 11:04 Resp 13 05/08/25 11:04 SpO2 96 % 05/08/25 11:04 Vitals shown include unfiled device data. Anesthesia Post Evaluation Patient location during evaluation: PACU Patient participation: complete - patient participated Level of consciousness: fully awake Pain score: 0 Pain management: adequate Airway patency: adequate Evidence of recall: no Cardiovascular status: hemodynamically stable and acceptable Respiratory status: acceptable and room air Hydration status: acceptable Pt is: normothermic Nausea/Vomiting status: none No notable events documented. * Anesthesia Procedure Notes - Polina Starkey CRNA - 05/08/2025 9:25 AM CDT Associated Order(s): [place] Block Anesthesia [place] Block Anesthesia Reason for block: primary anesthetic Staff: Placed by: JOINT CREASER: Polina Starkey CRNA Procedure prep: Preprocedure checklist: patient identified, patient appropriate for plan, informed consent obtained, surgical consent, risks and benefits discussed, monitors and equipment checked and timeout performed Prep solution: chlorhexadine/alcohol [place] block: Site: right upper extremity Medication injected through: IV placed preoperatively IV gauge: 22g Procedure details: tourniquet - single cuff, esmarch applied to extremity, tourniquet inflation verified, local anesthetic injected, injection IV removed and patient tolerated procedure well Assessment: Events: patient tolerated procedure well without complications * Anesthesia Preprocedure Evaluation - Dom Phelan MD - 04/06/2025 10:36 AM CDT Images from the original note were not included. [facility] Preoperative Assessment and Planning Preoperative Evaluation Record Evaluation type/location: [facility] Planned procedure [facility] Date: 04/06/25 Anesthesia Evaluation right RELEASE CARPAL TUNNEL (Right: Wrist) right pronatoar release (Right: Arm Lower) Pre-Op Diagnosis Codes: * Right carpal tunnel syndrome [G56.01] HISTORY HPI Kieran Cohn is a 59 y.o. male undergoing right carpal tunnel and pronator release. Patient with history of CAD s/p PCI on Xarelto and aspirin, IDDM, LATONIA and CKD. Past Medical History Information obtained from: patient and chart. Information obtained during: Telephone Visit NOTE: This note represents a preoperative evaluation initiated via virtual (video or telephone) interview. NO PHYSICAL EXAM was performed at the time of initial assessment. A physical exam may be added to this note and documented below. Neurological Pertinent negatives: neuromuscular disease; CVA/stroke and TIA Cardiovascular + Hypertension (doesn't check BP at home) + CAD - Angina class: no angina + Unknown stent(s) type (cards note states RCA and LAD stents) - Prior stent(s) date: 2020. + Systolic or diastolic dysfunction w/o CHF Diastolic function: stage I - impaired relaxation LVEF:60-70%. + Other arrhythmia (per cards note: not seen on holter) - bradycardia. Pertinent negatives: NM ; CABG ; valvular heart disease; atrial fibrillation; pacemaker/ICD; DVT/PE; negative for CHF; drug-eluting stent(s) and bare metal stent(s) Comments: :: nanny babysitter: Dr.Harvey Gates - last visit 12/2024 Respiratory + Sleep apnea (LATONIA) Prescribed device: CPAP and PAP non-compliant. Pertinent negatives: COPD; pulmonary hypertension; no O2 use outside the hospital; non-smoker and no tracheostomy Hepatic / Heme Pertinent negatives: liver disease Renal / + Renal disease - CKD Pertinent negatives: dialysis Endocrine / Other + Diabetes mellitus - Diabetes type 2. Outpatient insulin use: current. Pt reported low glucose range is 110. Pt reported high glucose range is 150. Pt reported HgA1c: 6.7%. + Obesity (BMI >30) (BMI 31.60) Pertinent negatives: thyroid disease; cancer history; transplanted organ and infectious disease Functional Capacity Functional capacity: 4-6 METs Comments: 2 flights of stairs without SOB or CP Review of Systems + easy bruising (on Xarelto.) Pertinent negatives: productive cough; SOB; recent cold/flu; fever; chest pain; palpitations; orthopnea; PND; previous transfusion; bleeding problems; syncope and dizziness PAT Summary and Plans Cardiac risk classification of planned procedure: low cardiac risk. Preoperative assessment status: outside records required. Initial preoperative evaluation discussed with: Karen Conde MD Additional comments: Kieran Cohn is a 59 y.o. male who is being evaluated prior to undergoing a low cardiac risk surgery. Revised Cardiac Risk Index factors are (ischemic heart disease and insulin therapy for diabetes) for a total RCRI of 2 out of 6. Functional capacity is 4-6 METs. PRELIMINARY Obstructive sleep apnea (LATONIA) screening status is HIGH RISK due to known LATONIA. Full LATONIA screening deferred until DOS due to TPAP. Blood bank needs for day of procedure: No type and screen needed Pending labs/tests include: no labs indicated DOS: blood glucose This assessment was performed via telephone. Therefore the physical exam has been deferred to the day of surgery team. The patient was provided with preoperative instructions for their medications. The patient was instructed to shower/bathe the night prior and the morning of the planned procedure using an antibacterial soap. The patient is on aspirin therapy and has a history of CAD We recommend that aspirin be continued throughout the perioperative period. However, if aspirin needs to be discontinued because the surgical risk of bleeding due to aspirin is considered to outweigh its benefits, we would then recommend stopping aspirin up to 7-10 days prior to the procedure and resuming aspirin therapy as soon as possible in the postoperative period. [employer] staff message sent to surgeon's office. Please call the CPAP chart room clinician ([phone]) with any questions or to discuss alternative management plans. The patient is on oral anticoagulation therapy with rivaroxaban (XARELTO) and is scheduled for a procedure with a planned/possible nerve block and/or is at low or intermediate risk for perioperative thrombosis. Estimated creatinine clearance is presumed to be greater than 30 ml/min. We recommend holding all doses of this anticoagulant for 72 hours prior to the procedure. Therapeutic anticoagulation should be resumed post-operatively when the bleeding risk is acceptable. Alternative anticoagulation therapies can be used in the interim if acceptable. [employer] staff message sent to surgeon's office.Please call the CPAP chart room clinician ([phone]) to revisit risk assessment, with any questions, or to discuss alternative management plans.?? Patient instructions were provided in writing sent via 24/7 Card mail. Patient verbalized understanding of preoperative plan. :: case discussed with CPAP attending (re: CAD on xarelto and aspirin) :: patient has routine nanny babysitter appointment on 04/13/2025 will review note for chart completion. Preoperative evaluation performed by Linda Montoya NP on 04/06/25 at 10:57 AM. . Follow up note Still awaiting nanny babysitter note for chart completion. LVM with patient to make sure there wasn't any concerns at his appointment or that he required any additional testing. Follow-up completed by: Linda Montoya NP on 05/04/25 at 3:04 PM Follow up note Cards note reviewed from 04/13/2025 TPAP assessment complete. Follow-up completed by: Linda Montoya NP on 05/07/25 at 12:42 PM Patient Active Problem List Diagnosis Date Noted ??? Right carpal tunnel syndrome 03/09/2025 ??? S/P lumbar spinal fusion 06/16/2024 ??? Spinal stenosis of lumbar region 05/16/2024 ??? Facet arthropathy 05/16/2024 ??? Effusion of lumbar facet joint 05/16/2024 ??? Leukocytosis 05/01/2024 ??? Coronary atherosclerosis 03/06/2024 ??? Bradycardia, unspecified 01/27/2024 ??? Claustrophobia 12/16/2023 ??? Roblero's neuroma of left foot 08/29/2023 ??? Erectile dysfunction 10/28/2022 ??? Bronchitis 07/29/2022 ??? Fatigue 06/11/2022 ??? Chest pain 05/13/2022 ??? Contact dermatitis due to poison charley 04/23/2022 ??? Allergic contact dermatitis 04/13/2022 ??? Folliculitis 01/05/2022 ??? Cardiovascular stress test abnormal 09/18/2021 ??? Degeneration of lumbar intervertebral disc 07/21/2021 ??? Chronic low back pain 07/13/2021 ??? Benign prostatic hyperplasia without urinary obstruction 07/13/2021 ??? LATONIA (obstructive sleep apnea) 05/21/2021 ??? Benign essential hypertension 02/26/2021 ??? Diabetic nephropathy associated with type 2 diabetes mellitus (HCC) 02/26/2021 ??? Injury of foot 02/24/2021 ??? Diastolic dysfunction 01/22/2021 ??? History of severe acute respiratory syndrome coronavirus 2 (SARS-CoV-2) disease 11/28/2020 ??? Dystrophia unguium 11/25/2020 ??? Diabetic peripheral neuropathy (HCC) 10/01/2020 ??? Hyponatremia 09/26/2020 ??? Iron deficiency 09/26/2020 ??? Neuropathy 09/25/2020 ??? Arteriosclerosis of coronary artery 07/16/2020 ??? Schatzki's ring 07/02/2020 ??? Hiatal hernia 07/02/2020 ??? Dyspnea on exertion 06/25/2020 ??? COVID-19 04/08/2020 ??? Gastro-esophageal reflux disease without esophagitis 03/28/2020 ??? Stage 3 chronic kidney disease (HCC) 03/28/2020 ??? Vitamin D deficiency 03/28/2020 ??? Chronic idiopathic constipation 03/20/2020 ??? Hyperlipidemia 03/20/2020 ??? Hypertensive disorder 03/20/2020 ??? Obesity 03/20/2020 ??? Type 2 diabetes mellitus without complication ([facility]) 03/20/2020 ??? Complete rupture of rotator cuff 01/15/2020 ??? Nontraumatic complete tear of right rotator cuff 12/14/2019 ??? Diabetes mellitus ([facility]) 09/07/2019 ??? Right shoulder pain 09/07/2019 ??? Traumatic complete tear of right rotator cuff 09/07/2019 ??? Diabetes mellitus ([facility]) 09/07/2019 Past Medical History: Diagnosis Date ??? Anxiety well controlled with meds ??? Arthritis ??? Depression well controlled with meds ??? GERD (gastroesophageal reflux disease) well controlled with meds ??? Hyperlipidemia well controlled with meds ??? Hypertension well controlled with meds ??? Insomnia ??? Sleep apnea no C=PAP or mouth guard ??? Spinal stenosis of lumbar region, unspecified whether neurogenic claudication present ??? Type 2 diabetes mellitus 2015 well controlled with meds. Last A1c-->7.7 (12/07/2019) Past Surgical History: Procedure Laterality Date ??? CARDIAC STENT PLACEMENT 2022 x1 ??? FL UPPER GI AIR CONTRAST W KUB Bilateral 05/01/2024 ??? FUNCTIONAL ENDOSCOPIC SINUS SURGERY 2017 ??? IR INJECTION ARTHROGRAM SI JOINT BILATERAL WITH GUIDANCE Bilateral 03/27/2024 ??? ROTATOR CUFF REPAIR Left 2014 ??? ROTATOR CUFF REPAIR Right 01/22/2020 ??? SPINAL FUSION 06/16/2024 Minimally invasive left L2-3 extreme lateral interbody fusion - left L2-3 posterior spinal fusion Allergies Allergen Reactions ??? Adhesive Other (See comments) skin comes off Med List Status: Nurse Complete Set By: Gricelda Farooq RN at 04/03/2025 12:37 PM Taking? Last Dose Start Date End Date Provider acetaminophen (TYLENOL) 500 mg tablet Past Month 06/18/24 -- Jordan Faulkner MD Take 2 tablets (1,000 mg total) by mouth every 8 (eight) hours as needed for pain Patient taking differently: Take 2 tablets (1,000 mg total) by mouth every 6 (six) hours as needed for pain aspirin 81 mg enteric coated tablet 04/03/2025 -- -- Provider, HistoricalMD atorvastatin (LIPITOR) 40 mg tablet 04/03/2025 03/10/21 -- Provider, HistoricalMD calcitRIOL (ROCALTROL) 0.25 mcg capsule 04/02/2025 -- -- Provider, HistoricalMD empagliflozin (JARDIANCE) 25 mg tablet 04/03/2025 -- -- Provider, HistoricalMD ergocalciferol (VITAMIN D) 50,000 unit capsule Past Week 10/18/24 -- Provider, HistoricalMD ezetimibe (ZETIA) 10 mg tablet 04/03/2025 08/16/69 -- Provider, HistoricalMD famotidine (PEPCID) 20 mg tablet 04/03/2025 -- -- Provider, HistoricalMD finerenone (Kerendia) 20 mg tablet 04/03/2025 -- -- Provider, HistoricalMD gabapentin (NEURONTIN) 300 mg capsule 04/03/2025 10/16/24 10/16/25 Jordan Faulkner MD Take 1 capsule (300 mg total) by mouth 3 (three) times a day Patient taking differently: Take 1 capsule (300 mg total) by mouth 3 (three) times a day glimepiride (AMARYL) 2 mg tablet 04/03/2025 -- -- Provider, MD Ashley hydroCHLOROthiazide 12.5 mg tablet 04/03/2025 09/29/24 -- Provider, HistoricalMD icosapent ethyL (VASCEPA) 1 gram capsule 04/03/2025 -- -- Provider, HistoricalMD insulin glargine 100 unit/mL (3 mL) pen for injection 04/03/2025 -- -- Provider, HistoricalMD linaGLIPtin (TRADJENTA) 5 mg tablet 04/03/2025 -- -- Provider, MD Ashley lisinopriL (PRINIVIL,ZESTRIL) 5 mg tablet 04/03/2025 -- -- Provider, MD Ashley meloxicam (MOBIC) 15 mg tablet 04/03/2025 02/22/25 -- Jordan Faulkner MD TAKE 1 TABLET EVERY DAY Patient taking differently: Take 1 tablet (15 mg total) by mouth every morning oxyCODONE (ROXICODONE) 10 mg tablet -- 06/18/24 -- Jordan Faulkner MD Take 1 tablet (10 mg total) by mouth every 4 (four) hours as needed for pain Patient taking differently: Take 1 tablet (10 mg total) by mouth every 4 (four) hours as needed forpain More than a month; last use approx 08/[address]24 after spine surgery pantoprazole DR (PROTONIX) 40 mg EC tablet 04/02/2025 -- -- ProviderAshley MD pen needle, diabetic (BD Ultra-Fine Dali Pen Needle) 32 gauge x needle -- 11/30/19 -- ProviderAshley MD rivaroxaban (Xarelto) 2.5 mg tablet 04/03/2025 -- -- Ashley Matamoros MD semaglutide (Ozempic) 2 mg/dose (8 mg/3 mL) pen injector injection Past Week -- -- ProviderAshley MD tiZANidine (ZANAFLEX) 4 mg tablet () -- 01/16/25 04/03/25 Jordan Faulkner MD TAKE 1 TABLET (4 MG TOTAL) BY MOUTH EVERY 6 (SIX) HOURS NEEDED FOR MUSCLE SPASMS Patient taking differently: Take 1 tablet (4 mg total) by mouth every 6 (six) hours as needed for muscle spasms More than a month traMADoL (ULTRAM) 50 mg tablet () Past Month 07/03/24 04/03/25 Jordan Faulkner MD Take 1 tablet (50 mg total) by mouth 3 (three) times a day as needed for pain for up to 7 days Patient taking differently: Take 1 tablet (50 mg total) by mouth every 8 (eight) hours as needed for pain No current facility-administered medications for this encounter. Current Outpatient Medications: ??? acetaminophen (TYLENOL) 500 mg tablet ??? aspirin 81 mg enteric coated tablet ??? atorvastatin (LIPITOR) 40 mg tablet ??? calcitRIOL (ROCALTROL) 0.25 mcg capsule ??? empagliflozin (JARDIANCE) 25 mg tablet ??? ergocalciferol (VITAMIN D) 50,000 unit capsule ??? ezetimibe (ZETIA) 10 mg tablet ??? famotidine (PEPCID) 20 mg tablet ??? finerenone (Kerendia) 20 mg tablet ??? gabapentin (NEURONTIN) 300 mg capsule ??? glimepiride (AMARYL) 2 mg tablet ??? hydroCHLOROthiazide 12.5 mg tablet ??? icosapent ethyL (VASCEPA) 1 gram capsule ??? insulin glargine 100 unit/mL (3 mL) pen for injection ??? linaGLIPtin (TRADJENTA) 5 mg tablet ??? lisinopriL (PRINIVIL,ZESTRIL) 5 mg tablet ??? meloxicam (MOBIC) 15 mg tablet ??? oxyCODONE (ROXICODONE) 10 mg tablet ??? pantoprazole DR (PROTONIX) 40 mg EC tablet ??? pen needle, diabetic (BD Ultra-Fine Dali Pen Needle) 32 gauge x 5/32 needle ??? rivaroxaban (Xarelto) 2.5 mg tablet ??? semaglutide (Ozempic) 2 mg/dose (8 mg/3 mL) pen injector injection ??? tiZANidine (ZANAFLEX) 4 mg tablet ??? traMADoL (ULTRAM) 50 mg tablet Social History Tobacco Use Smoking Status Former ??? Current packs/day: 0.00 ??? Average packs/day: 1 pack/day for 9.4 years (9.4 ttl pk-yrs) ??? Types: Cigarettes ??? Start date: 1985 ??? Quit date: 01/18/1995 ??? Years since quittin.2 Smokeless Tobacco Never Alcohol Use: Not At Risk (04/03/2025) AUDIT-C ??? Frequency of Alcohol Consumption: 2-4 times a month ??? Average Number of Drinks: 1 or 2 ??? Frequency of Binge Drinking: Never Substance and Sexual Activity Drug Use Yes ??? Types: Alcohol Comment: rare Family History Problem Relation Age of Onset ??? Anesthesia problems Neg Hx There were no vitals filed for this visit. PT: No results found for requested labs within last 30 days. INR: No results found for requested labs within last 30 days. APTT: No results found for requested labs within last 30 days. Hgb A1C: No results found for requested labs within last 30 days. CBC RBC: No results found for requested labs within last 30 days. RDW: No results found for requested labs within last 30 days. MCHC: No results found for requested labs within last 30 days. MCH: No results found for requested labs within last 30 days. MCV: No results found for requested labs within last 30 days. Hct: No results found for requested labs within last 30 days. Hgb: No results found for requested labs within last 30 days. WBC: No results found for requested labs within last 30 days. MPV: No results found for requested labs within last 30 days. Platelets: No results found for requested labs within last 30 days. RDW CV: No results found for requested labs within last 30 days. RDW Sd: No results found for requested labs within last 30 days. BMP Glucose: No results found for requested labs within last 30 days. Calcium: No results found for requested labs within last 30 days. Sodium: No results found for requested labs within last 30 days. Potassium: No results found for requested labs within last 30 days. CO2: No results found for requested labs within last 30 days. Chloride: No results found for requested labs within last 30 days. BUN: No results found for requested labs within last 30 days. Creatinine: No results found for requested labs within last 30 days. Angel index score: 100 DOS Physical Exam Date of Last Liquid: 05/08/25, Time of Last Liquid: 0530 (sip of water with meds) Date of Last Solid: 05/07/25, Time of Last Solid: 2100 Medical history, medications, and allergies reviewed. Attestation: This PAT evaluation 05/08/2025. Airway Exam: Mallampati: II Cervical ROM: FROM TM distance: 3 Cardiovascular Exam: Rate: regular Rhythm: regular Pulmonary Exam: LCTA, bilat Dental Exam: Appears intact Anesthesia Plan ASA 2 My patient is approved for the Anesthesia Controlled Medication protocol when under care of a JOINT CREASER Planned anesthesia: Regional as primary anesthetic and IV regional Informed Consent: Anesthesia plan and risks discussed with patient. Consent and Attending signature: I and/or my designee have discussed the anesthesia plan, benefits, possible alternatives, parental presence at time of induction (if indicated), and clinically relevant risks that may include dental injury, unintentional awareness, and/or other complications. The patient and/or parent/legal guardian understand, and agree to proceed. All questions answered. documented in this encounter Plan of Treatment Not on file documented as of this encounter Goals Goal Patient Goal Type Associated Problems Recent Progress Patient-Stated? Author Autogenera daria Goal Care Plan Autogenerated Problem No Kat Munguia MA documented as of this encounter Procedures Procedure Name Priority Date/Time Associated Diagnosis Comments [place] AN PROCEDURE PLACEHOLDER Routine 05/08/2025 9:25 AM CDT documented in this encounter Results * [place] AN PROCEDURE PLACEHOLDER (05/08/2025 9:25 AM CDT) Narrative Polina Starkey CRNA - 05/08/2025 9:25 AM CDT Polina Starkey CRNA 05/08/2025 9:25 AM [place] Block Anesthesia Reason for block: primary anesthetic Staff: Placed by: JOINT CREASER: Polina Starkey CRNA Procedure prep: Preprocedure checklist: patient identified, patient appropriate for plan, informed consent obtained, surgical consent, risks and benefits discussed, monitors and equipment checked and timeout performed Prep solution: chlorhexadine/alcohol Hazel block: Site: right upper extremity Medication injected through: IV placed preoperatively IV gauge: 22g Procedure details: tourniquet - single cuff, esmarch applied to extremity, tourniquet inflation verified, local anesthetic injected, injection IV removed and patient tolerated procedure well Assessment: Events: patient tolerated procedure well without complications Dom Phelan MD ANESTHESIA ORDERABLES Mohini l Result documented in this encounter Visit Diagnoses Not on filedocumented in this encounter Administered Medications Inactive Administered Medications - up to 3 most recent administrations Medication Order MAR Action Action Date Dose Rate Site ceFAZolin (ANCEF) 2,000 mg/50 mL in dextrose (premix) 2,000 mg 2,000 mg, intravenous, at 100 mL/hr, Administer over 30 Minutes, Once, On Wed05/08/25 at 0800, For 1 dose, Pre-Op, Administer within 60 minutes of incision. Duplex bag - activate before hanging., Indications: Prophylaxis, SurgicalIndications:Prophylaxis, Surgical Given 05/08/2025 9:11 AM CDT 2,000 mg dexAMETHasone (DECADRON) 4 mg/mL injection intravenous, Administer over 2 Minutes, As needed, Starting on Wed05/08/25 at 0912, Anesthesia Intra-op Given 05/08/2025 9:12 AM CDT 8 mg dexmedeTOMIDine (PRECEDEX) injection intravenous, As needed, Starting on Wed05/08/25 at 0910, Anesthesia Intra-op Given 05/08/2025 9:15 AM CDT 4 mcg Given 05/08/2025 9:13 AM CDT 4 mcg Given 05/08/2025 9:10 AM CDT 4 mcg fentaNYL (SUBLIMAZE) preservative free injection intravenous, As needed, Starting on Wed05/08/25 at 0910, Anesthesia Intra-op Given 05/08/2025 9:13 AM CDT 50 mcg Given 05/08/2025 9:10 AM CDT 50 mcg HYDROmorphone (DILAUDID) injection intravenous, Administer over 2 Minutes, As needed, Starting on Wed05/08/25 at 1009, Anesthesia Intra-op Given 05/08/2025 10:15 AM CDT 0.4 mg Given 05/08/2025 10:09 AM CDT 0.4 mg Lactated Ringer's (LR) infusion 100 mL/hr, intravenous, [...] 05/08/2025 9:02 AM CDT 100 mL/ hr lidocaine (PF) (XYLOCAINE) 5 mg/mL (0.5 %) preservative free injection intravenous, As needed, Starting on Wed05/08/25 at 0916, Anesthesia Intra-op, Indications: Administration of Local AnesthesiaIndications:Administration of Local Anesthesia Given 05/08/2025 9:16 AM CDT 45 mL midazolam (VERSED) 1 mg/mL injection intravenous, Administer over 2 Minutes, As needed, Starting on Wed05/08/25 at 0904, Anesthesia Intra-op Given 05/08/2025 9:04 AM CDT 2 mg ondansetron (ZOFRAN) injection intravenous, Administer over 2 Minutes, As needed, Starting on Wed05/08/25 at 0903, Anesthesia Intra-op Given 05/08/2025 9:03 AM CDT 4 mg propofoL (DIPRIVAN) 10 mg/mL IV intravenous, As needed, Starting on Wed05/08/25 at 0915, Anesthesia Intra-op Given 05/08/2025 9:15 AM CDT 20 mg documented in this encounter Additional Health Concerns Active Problems Noted Date Diagnosed Date Autogenerated Problem 03/12/2025 documented as of this encounter Care Teams Callisthenics Instructor Relationship Specialty Start Date End Date Mushtaq Cox MD [address] [facility] [place] [address] PCP - General Family Medicine 09/04/20 Deacon Gates MD [address] [facility] [place], [place] [id number] Consulting Physician Cardiology 05/24/24 Twila Corona MD [address] [facility] [place], [place] [address] Referring Physician Nephrology 05/29/24 documented as of this encounter
--- OUTSIDE RECORDS SUMMARY | 2025-05-09 15:31 | XMS_ITS | Clinical Summary ---
Author Organization [facility] Address [facility] [place] [address] Care Team Providers Care Boom Stick Man Name Role Phone Mushtaq Cox MD Primary Care Provider [phone] Allergies No known active allergies Medications glimepiride [...] by mouth daily. 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[employer] Gender Identity Male 04/09/2020 1:38 PM CDT [...] 3:18 AM CDT Height 167.6 cm (5' 6) 04/08/2020 12:1 1 PM CDT Body Mass [...] COVID-19 Vaccine (1 - 2023-2 5 season) 2025 RSV Immunization or 60+ Years (1 - 1-dose 75+ series) 2040 Meningococcal B Vaccine Aged Out No l [...] 2 diabetes mellitus without complication, unspecified whether alf insulin use from Last 3 Months or Most Recently Relevant to Health Maintenance Results * (ABNORMAL) HEMOGLOBIN, GLYCOSYLATED (12/07/2019 2:35 PM CDT) HGB A1C 7.7(H) <5.7 % 12/08/2019 12:25 PM CDT [facility] Comment: ADA GUIDELINES 2010 5.7 TO 6.4% INCREASED RISK OF DIABETES > OR = 6.5% CONSISTENT WITH DIABETES ESTIMATED AVG GLUCOSE 174 mg/dL 12/08/2019 12:25 PM CDT [facility] 12/07/2019 2:35 PM CDT us Power Mayberry MD LABORATORY Final Result [facility] [address] [place] [address], [place] [phone] from Last 3 Months or Most Recently Relevant to Health Maintenance Insurance [facility] Advance Directives * Full Code (Latest Code Status on File) Date Activated Date Inactivated Comments 04/08/2020 10:33 PM 04/12/2020 6:08 PM Care Teams Boom Stick Man Relationship Specialty Start Date End Date Mushtaq Cox MD PCP - General FAMILY PRACTICE 02/12/21
--- OUTSIDE RECORDS SUMMARY | 2025-05-09 15:31 | XMS_ITS | Clinical Summary ---
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 Only ever an issue with adhesive used on face. Medications pen needle, diabetic (BD Ultra-Fine Dali Pen Needle) 32 gauge x 5/32 needle 0 Active ezetimibe (ZETIA) 10 mg tabletIndicatio ns:hyperlipidem ia Take 1 tablet (10 mg total) by mouth every morning 0 Active atorvastatin (LIPITOR) 40 mg tabletIndicatio ns:hyperlipidem ia Take 1 tablet (40 mg total) by mouth every morning 1 Active aspirin 81 mg enteric coated tabletIndicatio ns:prevention of thrombosis Take 1 tablet (81 mg total) by mouth every morning Active finerenone (Kerendia) 20 mg tabletIndicatio ns:chronic kidney disease associated with type 2 diabetes Take 20 mg by mouth every morning Active empagliflozin (JARDIANCE) 25 mg tabletIndicatio ns:type 2 diabetes mellitus Take 1 tablet (25 mg total) by mouth every morning Active glimepiride (AMARYL) 2 mg tabletIndicatio ns:type 2 diabetes mellitus Take 1 tablet (2 mg total) by mouth daily before breakfast Active lisinopriL (PRINIVIL,ZESTR IL) 5 mg tabletIndicatio ns:hypertension Take 1 tablet (5 mg total) by mouth every morning Active famotidine (PEPCID) 20 mg tabletIndicatio ns:Heartburn,He artburn Prevention Take 1 tablet (20 mg total) by mouth every morning Active rivaroxaban (Xarelto) 2.5 mg tabletIndicatio ns:cardiac stent Take 1 tablet (2.5 mg total) by mouth 2 (two) times a day Active linaGLIPtin (TRADJENTA) 5 mg tabletIndicatio ns:type 2 diabetes mellitus Take 1 tablet (5 mg total) by mouth every morning Active pantoprazole DR (PROTONIX) 40 mg EC tabletIndicatio ns:gerd Take 1 tablet (40 mg total) by mouth nightly Active icosapent ethyL (VASCEPA) 1 gram capsuleIndicati ons:hypertrigly ceridemia Take 2 capsules (2 g total) by mouth 2 (two) times a day Active calcitRIOL (ROCALTROL) 0.25 mcg capsuleIndicati ons:Vitamin D Deficiency,hypo calcemia Take 1 capsule (0.25 mcg total) by mouth 3 (three) times a week Wednesday, Wednesday, Wednesday Active insulin glargine 100 unit/mL (3 mL) pen for injectionIndica tions:t2dm Inject 38 Units under the skin 2 (two) times a day Active semaglutide (Ozempic) 2 mg/dose (8 mg/3 mL) pen injector injectionIndica tions:type 2 diabetes mellitus Inject 2 mg under the skin every 7 days Takes on Saturdays Active oxyCODONE (ROXICODONE) 10 mg tabletIndicatio ns:Pain Take 1 tablet (10 mg total) by mouth every 4 (four) hours as needed for pain 40 tablet 4 Active Additional Information Patient taking differently:10 mg oral Every 4 hours PRN, pain,More than a month; last use approx 08/2024 after spine surgery, Indications: Pain, Informant: Self, Reported on 05/08/2025 acetaminophen (TYLENOL) 500 mg tablet Take 2 tablets (1,000 mg total) by mouth every 8 (eight) hours as needed for pain 60 tablet 4 Active Additional Information Patient taking differently:1,000 mg oralEvery 6 hours PRN, pain,Indications: Pain, Informant: Self, Reported on 05/08/2025 traMADoL (ULTRAM) 50 mg tabletIndicatio ns:Lumbar radiculopathy,L umbar spine pain Take 1 tablet (50 mg total) by mouth 3 (three) times a day as needed for pain for up to 7 days 21 tablet 4 Active Additional Information Patient taking differently:50 mg oralEvery 8 hours PRN, pain,Indications: Neuropathic Pain, Pain, Informant: Self, Reported on 05/08/2025 gabapentin (NEURONTIN) 300 mg capsule Take 1 capsule (300 mg total) by mouth 3 (three) times a day 90 capsule 1 5 10/17/19 26 Active Additional Information Patient taking differently:300 mg oral 3 times daily,Indications: Neuropathic Pain, Informant: Self, Reported on 05/08/2025 ergocalciferol (VITAMIN D) 50,000 unit capsuleIndicati ons:Vitamin D Deficiency Take 1 capsule (50,000 Units total) by mouth once a week Wednesday morning 5 Active hydroCHLOROthia zide 12.5 mg tabletIndicatio ns:htn Take 1 tablet/capsule (12.5 mg total) by mouth every morning 5 Active tiZANidine (ZANAFLEX) 4 mg tablet TAKE 1 TABLET (4 MG TOTAL) BY MOUTH EVERY 6 (SIX) HOURS NEEDED FOR MUSCLE SPASMS 120 tablet 11 5 Active Additional Information Patient taking differently:4 mg oral Every 6 hours PRN, muscle spasms,More than a month, Indications: Muscle Spasm, Informant: Self, Reported on 05/08/2025 meloxicam (MOBIC) 15 mg tabletIndicatio ns:Lumbar radiculopathy,C hronic SI joint pain TAKE 1 TABLET EVERY DAY 90 tablet 3 5 Active Additional Information Patient taking differently:15 mg oralEvery morning, Indications: Osteoarthritis, Informant: Self, Reported on 05/08/2025 fish oil-dha-epa 1,200-144-216 mg capsule Take by mouth Activ e HYDROcodone-marylin taminophen (NORCO) 5-325 mg per tabletIndicatio ns:Pain Take 1 tablet by mouth every 6 (six) hours as needed for pain 12 tablet Active Active Problems Problem Noted Date Diagnosed Date Right carpal tunnel syndrome 03/09/2025 S/P lumbar spinal fusion 06/16/2024 Spinal stenosis [...] prostatic hyperplasia without urinary obs truction 07/13/2021 ALTONIA (obstructive sleep apnea) 05/21/2021 Benign essential hypertension [...] (01/15/2020): Added automatically from request for surgery [id number] Nontraumatic complete tear of right rotator cuff 12/14/2019 Diabetes mellitus 09/07/2019 Overview (03/06/2024): neg uacr Right shoulder pain 09/07/2019 Traumatic complete tear of right rotator cuff Diabetes mellitus 09/07/2019 Overview (07/03/2024): neg ua Encounters Date Type Department Care Team Description 05/08/2025 9:02 AM CDT Anesthesia Event [facility] [address] [place] [address] Dom Phelan MD Gardner, Kari Elizabeth, NP 05/08/2025 9:00 AM CDT - 05/08/2025 10:15 AM CDT Surgery [facility] [address] [place] [address] Aneesh Kern MD right RELEASE CARPAL TUNNEL 05/08/2025 7:22 AM CDT - 05/08/2025 11:30 AM CDT Hospital Encounter [facility] [address] [place] [address] Aneesh Kern MD Right carpal tunnel syndrome (Primary Dx) Discharge Disposition: Discharge to home or self care 04/13/2025 11:44 AM CDT - 04/13/2025 11:59 PM CDT Hospital Encounter [facility] [address] [place] [address] 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 Discharge Disposition: Discharge to home or self care 04/13/2025 11:15 AM CDT Lab [facility] [address] [place] [address] 03/07/2025 8:40 AM CDT Office Visit [facility] Medicine Orthopaedic Surgery [address] [place] [address] 2nd [address] [place] [id number] Aneesh Kern MD Carpal tunnel syndrome, right (Primary Dx) 03/06/2025 2:30 PM CDT Ancillary Procedure [facility] Orthopa[facility] Surgery [address] [facility] 1st [address] [place] [address] Lesion of left ulnar nerve 03/06/2025 2:30 PM CDT Procedure visit [facility] Orthopaedic Surgery [address] [facility] 1st [address] [place] [address] Otis Faustin MD Median neuropathy, unspecified laterality (Primary Dx); Ulnar neuropathy at elbow, unspecified laterality from Last 3 Months Immunizations Immunization Administration [...] fusion - left L2-3 posterior spinal fusion ROTATOR CUFF REPAIR 01/22/2020 Right CARDIAC STENT PLACEMENT 08/16/2022 - 08/15/2023 x1 Medical History Medical History Date Comments Arthritis Anxiety well controlled with meds Sleep apnea no C=PAP or mout h guard Hypertension well controlled with meds Hyperlipidemia well controlled with meds Depression well controlled with meds GERD (gastroesophageal reflux disease) well controlled with meds Type 2 diabetes mellitus 2014 well co ntrolled with meds. 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 Gender Identity Male 05/21/2021 1:05 PM CDT [...] Mass Index 32.68 05/08/2025 7:36 AM CDT Plan of Treatment Health Maintenance Due Date Last Done Comments Albumin Creatinine Ratio, Urine 1965 Colon Cancer Screening-Colonoscopy 1965 Depression Screening 1965 Prostate Cancer Screening-PSA 1965 Dilated Eye Exam 1965 Foot Exam 1965 Lipid Panel 1965 Hepatitis B Screening 1983 Regular Well Visit/Exam 18-64 1983 Pneumococcal vaccine <65 (1 of 2 - PCV) 1984 Zoster Vaccine (1 of 2) 2015 Hemoglobin A1C 11/22/2024 05/24/2024 Influenza Vaccine (#1) 2025 , 05/12/2022, 07/07/2021, Additional history exists eGFR 06/18/2025 06/18/2024, 09/2023, 05/24/2024 DTaP/Tdap/Td Vaccine (3 - Td or Tdap) 04/10/2034 04/10/2024, 10/31/2014 Hepatitis C Screening Completed 04/13/2025 Goals Goal Patient Goal Type Associated Problems Recent Progress Patient-Stated? Author Autogenera daria Goal Care Plan Autogenerated Problem No Kat Munguia MA Medical Devices Implanted Type Area Rn Corrections Device Identifier Shelf Expiration Date Model / Serial / Lot Stent Implanted:Qty: 1 Stent N/A: Heart Description:Placed 2022 [employer] Ar-2267 Ballpoint Pens Assembler Large Eyelet Pectoralis Button Fixation Latex Free - [id number] Implanted:Qty: 1 on 01/22/2020 by Jesus Mejia MD at [facility] Orthopedic [place] [employer] 09/15/2024 AR-2267 / / [id number] [employer] Ar-1927bct Corkscrew Suturetape 5.5mm 14.7mm Bioabsorbable Full Thread 1.3mm - [id number] Implanted:Qty: 1 on 01/22/2020 by Jesus Mejia MD at [facility] Orthopedic [place] Right: Shoulder [employer] 09/15/2021 AR-1927BCT / / [id number] [employer] Ar-1927bct Corkscrew Suturetape 5.5mm 14.7mm Bioabsorbable Full Thread 1.3mm - [id number] Implanted:Qty: 1 on 01/22/2020 by Jesus Mejia MD at [facility] Orthopedic [place] Right: Shoulder [employer] 09/15/2021 AR-1927BCT / / [id number] [employer] Ar-1927bct Corkscrew Suturetape 5.5mm 14.7mm Bioabsorbable Full Thread 1.3mm - [id number] Implanted:Qty: 1 on 01/22/2020 by Jesus Mejia MD at [facility] Orthopedic [place] Right: Shoulder [employer] 09/15/2021 AR-1927BCT / / [id number] [employer] Ar-2324 Bcm Swivelock 4.75mm 24.5mm Self Punch Vent Shoulder [place] Suture - [id number] Implanted:Qty: 1 on 01/22/2020 by Jesus Mejia MD at [facility] Orthopedic [place] Right: Shoulder [employer] 06/15/2023 AR-2324BCM / / [id number] [employer] Ar-2324 Bcm Swivelock 4.75mm 24.5mm Self Punch Vent Shoulder [place] Suture - [id number] Implanted:Qty: 1 on 01/22/2020 by Jesus Mejia MD at [facility] Orthopedic [place] Right: Shoulder [employer] 07/15/2023 AR-2324BCM / / [id number] [employer] 1134.001 Creo Spinal Cap Locking Nonsterile Mis - [id number] Implanted:Qty: 4 on 06/16/2024 by Jordan Faulkner MD at [facility] Spine Lumbar [employer] 1134.0010 / / [employer] Creo 6.5mm 50mm Cannulated Modular Spine Screw Bone 1067.4650 - [id number] Implanted:Qty: 4 on 06/16/2024 by Jordan Faulkner MD at [facility] Spine Lumbar [employer] 1067.4650 / / [employer] Stephan Spinal Lumbar Prebent Creo Mis 5.5x60mm Titanium 1134.7060 - [id number] Implanted:Qty: 2 on 06/16/2024 by Jordan Faulkner MD at [facility] Spine Lumbar [employer] 1134.7060 / / Allosource Freeze Dried Chips 4-10mm Graft 30ml Bone Cancellous [id number] - [id number] Implanted:Qty: 1 on 06/16/2024 by Jordan Faulkner MD at [facility] Spine Lumbar [employer] 10/10/2028 [id number] / / [id number] Medtronic Inc Infuse 20ga 2x1in Vial Absorbable Syringe Needle Medium Graft 5.6 [id number] - [id number] Implanted:Qty: 1 on 06/16/2024 by Jordan Faulkner MD at [facility] Left: Spine Lumbar Med[employer] Inc 01/14/2025 [id number] / / Glob[employer] Medical Cage Spinal Lumbar 0 Degree Dlif Expandable Rise L [id number] Titanium 193.305 - [id number] Implanted:Qty: 1 on 06/16/2024 by Jordan Faulkner MD at [facility] Spine Lumbar [employer] 193.305 / / [employer] 1134.01 Creo Mis 30mm Modular Polyaxial Tulip Head Screw Bone - [id number] Implanted:Qty: 4 on 06/16/2024 by Jordan Faulkner MD at [facility] Spine Lumbar [employer] 1134.0100 / / Procedures Procedure Name Priority Date/Time Associated Diagnosis Comments NV AN PROCEDURE PLACEHOLDER Routine 05/08/2025 9:25 AM CDT TRANSFER MUSCLE 05/08/2025 9:08 AM CDT Right [...] BLOOD, POC Routine 05/08/2025 7:48 AM CDT XR CHEST PA LATERAL 2 VIEWS Schedule Routine, Read Routine (OP Routine) 04/13/2025 11:59 AM CDT 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 HEPATITIS PANEL, ACUTE Routine 04/13/2025 11:14 AM CDT POCUS LIMITED EXTREMITY Schedule Routine, Read Routine (OP Routine) 03/06/2025 2:25 PM CDT Lesion of left ulnar nerve EGFR Routine 06/18/2024 6:31 AM COKE PRODUCTION HEATER HEMOGLOBIN A1C Routine 05/24/2024 2:27 PM CDT Spinal stenosis of lumbar region, unspecified whether neurogenic claudication present Facet arthropathy Effusion of lumbar facet joint Degeneration of intervertebral disc of lumbar region, unspecified whether pain present Type 2 diabetes mellitus with other specified complication, unspecified whether 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) from Last 3 Months or Most Recently Relevant to Health Maintenance Results * NV AN PROCEDURE PLACEHOLDER (05/08/2025 9:25 AM CDT) Narrative Polina Starkey CRNA - 05/08/2025 9:25 AM CDT Polina Starkey CRNA 05/08/2025 9:25 AM Sparland Block Anesthesia Reason for block: primary anesthetic Staff: Placed by: JUDY: Polina Starkey CRNA Procedure prep: Preprocedure checklist: patient identified, patient appropriate for plan, informed consent obtained, surgical consent, risks and benefits discussed, monitors and equipment checked and timeout performed Prep solution: chlorhexadine/alcohol Sparland block: Site: right upper extremity Medication injected through: IV placed preoperatively IV gauge: 22g Procedure details: tourniquet - single cuff, esmarch applied to extremity, tourniquet inflation verified, local anesthetic injected, injection IV removed and patient tolerated procedure well Assessment: Events: patient tolerated procedure well without complications us Dom Phelan MD ANESTHESIA ORDERABLES Mohini colvin Result * Glucose, Whole Blood, POC (05/08/2025 7:48 AM CDT) Glucose POC 102 70 - 199 mg/dL Blood 05/08/2025 7:48 AM CDT 05/08/2025 7:48 AM CDT us Aneesh Kern MD LAB BLOOD ORDERABLES Final Result NEIL [facility] Department [place] [address] * XR Chest PA Lateral 2 Views (04/13/2025 11:59 AM CDT) Anatomical Region Laterality Modality Body, Chest N/A Computed Radiogr aphy 04/13/2025 1:09 PM CDT Impressions 04/13/2025 1:09 PM CDT FINDINGS/IMPRESSION: No focal consolidation. No pleural effusion or pneumothorax. The cardiomediastinal silhouette is normal. Electronically signed by: Radha Devi DO Narrative 04/13/2025 1:09 PM CDT EXAM: XR CHEST PA LATERAL 2 VIEWS, 04/13/2025 11:45 AM HISTORY: ATHEROSCLEROTIC HEART DISEASE COMPARISON: None. Procedure Note Radha Momin DO - 04/13/2025 EXAM: XR CHEST PA LATERAL 2 VIEWS, 04/13/2025 11:45 AM HISTORY: ATHEROSCLEROTIC HEART DISEASE COMPARISON: None. IMPRESSION: FINDINGS/IMPRESSION: No focal consolidation. No pleural effusion or pneumothorax. The cardiomediastinal silhouette is normal. Electronically signed by: Radha Devi DO Mushtaq Cox MD IMG XR PROCEDURES Final Result * Hepatitis panel, acute Blood (04/13/2025 11:14 AM CDT) Hep A IgM Nonreactive Nonreactive Comment: Interpretive Data: If Hep A IgM Ab is reported as Equivocal, a new sample should be drawn in two weeks for testing. Current interpretive data was last revised on 19. Hep B core IgM Nonreactive Nonreactive NEIL Comment: Interpretive Data If HepB Core IgM Ab is reported as Equivocal, a new sample should be drawn in two weeks for testing. Current interpretive data was last revised on 19. Hep C Ab Nonreactive Nonreactive NEIL Comment: Interpretive Data Nonreactive: Antibodies to HCV not detected. Does NOT exclude the possibility of recent exposure to HCV. Equivocal: Equivocal for HCV antibodies. Supplemental molecular testing will be automatically performed to determine infection status in accordance with current CDC screening recommendations. Reactive: Positive for HCV antibodies. This may represent current or past HCV infection. Supplemental molecular testing will be automatically performed to determine current infection status in accordance with current CDC screening recommendations. Interpretive data was last revised on 2019. HepBsAg Nonreactive Nonreactive NEIL OROZCO Blood 04/13/2025 11:1 4 AM CDT 04/13/2025 5:25 PM CDT Deacon Gates MD LAB MICROBIOLOGY - GENERAL NOAM ARMENDARIZ Final Result NEIL [address] Department [place] [address] * POCUS LIMITED EXTREMITY (03/06/2025 2:25 PM CDT) Narrative [facility] - 03/06/2025 2:25 PM CDT This procedure was performed and interpreted by the provider. Please refer to the provider's procedure/OR operative note for results. Otis Faustin MD POCUS ORDERABLES Final R esult Performing Organization Address City/[facility]/ZIP Co de Phone Number [facility] * eGFR (06/18/2024 6:31 AM COKE PRODUCTION HEATER) eGFR 64 >=60 mL/min/1. 73 m2 Comment: [...] last reviewed 2021. Blood 06/18/2024 6:31 AM COKE PRODUCTION HEATER 06/18/2024 6:42 AM COKE PRODUCTION HEATER us Alberto Aponte MD LAB BLOOD ORDERABLES Final Result Performing Organization Address [facility] Co de Phone Number [facility] [address] [place] [address] * (ABNORMAL) Hemoglobin A1c (05/24/2024 2:27 PM CDT) Hgb A1C 6.2(H) 4.0 - 5.6 % Estimated Average Glucose 131 mg/dL [facility] Comment: The ADA recommends reporting an estimated Average Glucose (eAG) with all Hemoglobin A1c results using the equation derived from a study of 507 normal and diabetic adults. Minority populations were underrepresented and children were not included. (Diabetes Care 31:8264-8531, 2008). The eAG is not equivalent to a fasting glucose. Blood 05/24/2024 2:27 PM CDT 05/24/2024 2:27 PM CDT us Jordan Faulkner MD LAB BLOOD ORDERABLES Fi nal Result Performing Organization Address [facility] Co de Phone Number [facility] [address] [place] [address] from Last 3 Months or Most Recently Relevant to Health Maintenance Additional Health Concerns Active Problems Noted Date Diagnosed Date Autogenerated Problem 03/12/2025 Insurance [employer] MEDICARE HMO [place] DAVID [id number] [employer] MEDICARE HMO * Guarantor: [facility] Account Type Relation to Patient Date of Phone Billing Address Workers Comp Employer [employer] Advance Directives For more information, please contact: [phone] * Full Code (Latest Code Status on File) Date Activated Date Inactivated Comments 06/16/2024 5:26 PM 06/18/2024 7:50 PM Care Teams [employer]er [employer] Relationship Specialty Start Date End Date Mushtaq Cox MD [address] [place] [address] [place] [address] PCP - General Family Medicine 09/04/20 Deacon Gates MD [address] [place] [address] Consulting Physician Cardiology 05/24/24 Twila Corona MD [address] [place] [address] Referring Physician Nephrology 05/29/24
--- OUTSIDE RECORDS SUMMARY | 2025-05-09 15:31 | XMS_ITS | Clinical Summary ---
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 Gender Identity Not on file Sexual Orientation Not on file Plan of Treatment Health Maintenance Due Date Last Done Comments Hepatitis C Virus (HCV) Screening 1965 TdaP Immunization 1965 Cologuard 2010 Immunochemical Fecal Occult Blood 2010 Pneumococcal Immunization (5 0+ years) (1 of 1 - PCV) 2015 Zoster Immunization (1 of 2) 2015 Colonoscopy 04/05/2022 04/05/2017 Colorectal Cancer Screening 04/05/2022 SARS-COV-2 Immunization (1 - 2023- season) 2024 Respiratory Syncytial Virus (RSV) Immunization (Adult) (1 - Risk 60-74 years 1-dose series) 2025 Influenza Immunization (#1) 2025 Hepatitis B Immunization Aged Out No longer eligible based on patient's age to complete this topic Human Papillomavirus (HPV) Immunization Aged Out No longer eligible b ased on patient's age to complete this topic Meningococcal Immunization (ACWY) Aged Out No longer [...] Recently Relevant to Health Maintenance Care Teams Retail Pos Specialist Relationship Specialty Start Date End Date Provider, Unknown UNKNOWN PCP - General 04/07/17 Jordan Cramer DO UNKNOWN Gastroenterology 04/07/17
--- OUTSIDE RECORDS SUMMARY | 2025-05-09 15:31 | XMS_ITS | Clinical Summary ---
Author Organization [facility] Address [address] [place] [address] Care Team Providers Care Senior Web Analyst Name Role Phone Shawn Nelson MD Primary Care Provider + Source Comments [facility],non-owned Affiliates and Associated Physician Practices is amultiple site organization consisting of ambulatory clinics and hospital sitesin [place] and [place]. This disclosure is being madepursuant to the Care Everywhere program and may not contain all information available regarding this patient. 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 Gender Identity Not on file Sexual Orientation [...] 10:34 AM CDT Height 175.3 cm (5' 9) 03/28/2019 10:3 4 AM CDT Body Mass [...] 04/03/1983 DTAP/TDAP/TD VACCINES (1 - Tdap) 1984 PNEUMOCOCCAL VACCINE 50+ (1 of 1 - PCV) 2015 ZOSTER VACCINE (1 of 2) 2015 SCREENING FOR DIABETES 03/28/2019 DEPRESSION SCREENING 08/16/2024 COVID-19 VACCINE (1 - 2023-2 5 season) 2025 INFLUENZA VACCINE (#1) 2025 Respiratory Syncytial Virus (RSV) Vaccine Pt: or over 60 yrs (1 - 1-dose 75+ series) 2040 HEPATITIS B VACCINE Aged Out No longe r eligible based on patient's age to complete this topic HIB VACCINE Aged Out No longer eligi [...] patient's age to complete this [place] [address] [facility] [place] Address: [facility] [address] [place] [address] Care Teams Senior Web Analyst Relationship Specialty Start Date End Date Shawn Nelson MD PCP - General Internal Medicine 03/23/18
--- OUTSIDE RECORDS SUMMARY | 2025-05-09 15:31 | XMS_ITS | Clinical Summary ---
Author Organization [facility] Facility Address [address] [place] [id number] Care Team Providers Care Milling Supervisor Name Role Phone Mushtaq Cox MD Primary Care Provider [phone] Allergies Active Allergy Reactions Criticality Noted Date [...] time each day Active ergocalciferol 1.25 MG (94981 UT) capsule 50,000 Units EVERY 2 WEEKS [...] 3:51 PM CDT Height 170.2 cm (5' 7) 06/17/2021 3:51 PM CDT Body Mass Index 34.38 06/17/2021 3:51 PM CDT Plan of Treatment Health Maintenance Due Date Last Done Comments Pneumococcal Vaccine: 50+ Years (1 of 2 - PCV) 984 Colorectal Cancer Screening: Annual FOBT 2014 Colorectal Cancer Screening: Colonoscopy 2014 Colorectal Cancer Screening: Sigmoidoscopy 2014 Diabetes: Ophthalmology Exam 01/09/2021 Diabetes: Pedal Pulse Checked 01/09/2021 Diabetes: Sensory Foot Exam 01/09/2021 Diabetes: Visual Foot Exam 01/09/2021 Diabetes: Hemoglobin A1C 06/23/2021 03/23/2021 Hepatitis B Vaccine (1 of 3 - Risk 3-dose series) 03/17 Influenza Vaccine (#1) 2025 06/20/2020 Procedures Procedure Name Priority Date/Time Associated Diagnosis [...] 9.6 8.7 - 10.7 mg/dL eGFR Non-Afr Hungarian 51 Bilirubin Direct 0.7 Alkaline Phosphatase 85 [...] Relevant to [place] [address] [facility] ([id number]) Care Teams Milling Supervisor Relationship Specialty Start Date End Date Mushtaq Cox MD PCP - General 12/24/20
[2025-05-09 16:08] LABS: Total Protein Urine Random 7 mg/dL; Ur Ttl Prot Creatinine Ratio 0.11 mg/mg (0-0.20)
[2025-05-09 16:19] LABS: Albumin Level 4.5 g/dL (3.5-5.1); Anion Gap 11 mmol/L (4-12); Blood Urea Nitrogen 36 mg/dL (9-20); Calcium 9.7 mg/dL (8.4-10.2); Carbon Dioxide 25 mmol/L (22-30); Chloride 102 mmol/L (98-107); Estimated Glomerular Filt Rate 37; Glucose 138 mg/dL (65-110); Potassium 4.3 mmol/L (3.4-5.0); Sodium 138 mmol/L (137-145)
[2025-05-09 16:32] LABS: Parathyroid Intact 37.1 pg/mL (14.5-75.2)
== END 2025-05-09 15:28 | disposition home or self-care (01) ==
PROVIDERS: PCP Family Medicine; Visit Provider Internal Medicine Nephrology
DX: I12.9 Hypertensive chronic kidney disease with stage 1 through stage 4 chronic kidney disease, or unspecified chronic kidney disease (principal); E11.22 Type 2 diabetes mellitus with diabetic chronic kidney disease; N18.32 Chronic kidney disease, stage 3b; N25.81 Secondary hyperparathyroidism of renal origin; E55.9 Vitamin D deficiency, unspecified
CPT/HCPCS: 36415; 80069; 82306; 82570; 83970; 84156

== ENCOUNTER 2025-08-08 12:30 | Emergency (ER) | payer MEDICARE, SELFPAY ==
--- NOTE | 2025-08-08 12:41 | ED.GENADULT ---
HPI - General Adult General Chief complaint: Upper Respiratory Infection Stated complaint: L foot injury, Congestion Time Seen by Provider: 08/08/25 12:41 Source: patient, RN notes reviewed and old records reviewed Mode of arrival: ambulatory Limitations: no limitations History of Present Illness HPI narrative: 60-year-old male presents to the [facility] with left great toe pain, swelling, mild pink area also with concerns for congestion. Recently returned from a cruise and states on the flight back every but he was ?coughing. ? Patient had contacted his primary care provider and was prescribed Augmentin on the , 2 days ago. Patient has a history of kidney issues, diabetes, hypertension, high cholesterol. Patient is currently on Xarelto for stents. Related Data Home Medications ?Medication ?Instructions ?Recorded ?Confirmed ?Last Taken ?Type atorvastatin 40 mg tablet 40 mg PO QHS 11/17/22 05/14/25 Unknown History empagliflozin 25 mg tablet 25 mg PO DAILY 11/17/22 05/14/25 Unknown History (Jardiance) ergocalciferol (vitamin D2) 1,250 1,250 mcg PO WEEKLY 11/17/22 05/14/25 Unknown History mcg (50,000 unit) capsule ezetimibe 10 mg tablet (Zetia) 10 mg PO DAILY 11/17/22 05/14/25 Unknown History glimepiride 2 mg tablet 2 mg PO QAM 11/17/22 05/14/25 Unknown History insulin glargine 100 unit/mL 26 unit subcut BID 11/17/22 05/14/25 Unknown History subcutaneous solution (Lantus U-100 Insulin) lisinopril 5 mg tablet 5 mg PO DAILY 11/17/22 05/14/25 Unknown History pantoprazole 40 mg tablet,delayed 40 mg PO QAM 11/17/22 05/14/25 Unknown History release pregabalin 50 mg capsule 50 mg PO BID 11/17/22 05/14/25 Unknown History blood-glucose sensor (Dexcom G6 12/13/23 05/14/25 Unknown History Sensor device) blood-glucose transmitter (Dexcom 12/13/23 05/14/25 Unknown History G6 Transmitter device) blood-glucose,senior reliability engineer,cont 12/13/23 05/14/25 Unknown History (Dexcom G6 Lockstitch Shoulder Joiner) finerenone 20 mg tablet (Kerendia) 20 mg PO DAILY 12/13/23 05/14/25 Unknown History linagliptin 5 mg tablet (Tradjenta) 5 mg PO DAILY 12/13/23 05/14/25 Unknown History rivaroxaban 2.5 mg tablet (Xarelto) 2.5 mg PO DAILY 08/17/24 05/14/25 Unknown History Allergies Allergy/AdvReac Type Severity Reaction Status Date / Time adhesive tape AdvReac Mild Rash Verified 08/08/25 12:37 Review of Systems Review of Systems: All systems reviewed & are unremarkable except as noted in HPI and below Constitutional: Constitutional: Reports as per HPI, Reports body ache(s) and Reports fatigue ENT: Reports system reviewed and no additional complaints, except as documented Cardiovascular: Cardiovascular: Reports no additional cardiovascular complaints, Denies chest pain and Denies dyspnea Respiratory: Respiratory: Reports as per HPI, Reports chest congestion, Denies cough and Denies dyspnea Musculoskeletal: Musculoskeletal: Reports as per HPI and Reports joint swelling (Left great toe) Integumentary/Breasts: Skin/Breast: Reports system reviewed and no additional complaints, except as docu PMFSH Past Medical History Medical History BPH (benign prostatic hyperplasia) DJD (degenerative joint disease), lumbar CKD (chronic kidney disease) GERD (gastroesophageal reflux disease) CAD (coronary artery disease) Hypertension LATONIA (obstructive sleep apnea) Erectile dysfunction Obesity Hyperlipidemia Diabetic neuropathy Diabetes Surgical History Surgical History H/O shoulder surgery History of ear, nose, and throat (ENT) surgery History of heart artery stent Family History Family History Mother Diabetes mellitus Hypertension Father Diabetes mellitus Heart disease Hypertension Social History Social History Smoking packs per day: 1 Smoking cigarettes per day: 20.0 Years smoked: 10 Smoking pack-years: 10.00 Smoking status: Former smoker Smoking end date: 08/16/94 Alcohol intake: current Drinks per week: 3 Alcohol use details: beer Substance use: never Lack of Transportation: No Lack of Food: Never True Current Housing: I Have Housing Concerned About Future Housing: No Difficulty Paying Gas/Electric Bills: No Difficulty Paying for Meds: No Currently Unemployed: No Education: High School Diploma/GED Difficulty w/ Childcare or Family Care: No Living arrangements: with family Gender identity (if verbalized by the patient): Male Sexual Orientation (if Verbalized by the Patient): Straight or Heterosexual Comments At the time of my signature, I reviewed and agree with the nursing past medical, surgical, social, and family history. There is no relevant family history pertinent to the patient complaint. Exam Const: General: cooperative, healthy appearing, comfortable, no acute distress, well developed, alert and well nourished Nutritional Appearance: well nourished Orientation/consciousness: patient oriented x3 Limitations: no limitations HENMT: Head: normal to inspection Ears: hearing grossly normal bilaterally, external ears normal, TM's normal bilaterally, EAC's normal, mastoids normal and no periauricular adenopathy Face and sinus: normal facial exam Mouth: Yes Normal oral and palatal mucosa present, Yes lip normal, Yes tongue normal and Yes moist mucous membranes Throat: posterior oropharynx normal, uvula midline and no uvular edema Eyes: General: appearance normal, both eyes and all related structures Alignment and Position: alignment normal Neck: Neck: normal visual inspection, full ROM, no lymphadenopathy and no meningeal signs Chest: Chest palpation & inspection: normal inspection of the chest Resp: Effort & Inspection: normal respiratory effort and able to speak in complete sentences Auscultation: clear to auscultation bilaterally, no crackles, no rales, no rhonchi and no wheezes Cardio: Rate: regular rate Skin: General skin exam: normal color and no rashes or lesions noted Neuro: General: patient oriented x3, gait normal, moves all extremities and no meningeal signs Cognition (Neuro): normal cognition Speech: normal speech Gait exam (Neuro): Normal gait present Extrem: General: normal to inspection, full ROM, capillary refill normal and normal gait Left lower extremity: foot Details: tenderness Location: of the great toe Location: at the MTP joint; no ecchymosis Psych: Appearance: grossly normal and well kempt Mental Status: mental status grossly normal Speech and movement: Normal speech and movement present and Clear speech present Affect: normal affect Attitude: cooperative Course Course Level of Care: Express Care Visit Vital Signs Vital signs: Vital Signs Temperature 97.8 F 08/08/25 12:45 Pulse Rate 81 08/08/25 12:45 Respiratory Rate 20 08/08/25 12:45 Blood Pressure 116/69 08/08/25 12:45 Pulse Oximetry 100 08/08/25 12:45 Oxygen Delivery Room Air 08/08/25 12:45 Temperature 97.8 F 08/08/25 12:45 Pulse Rate 81 08/08/25 12:45 Respiratory Rate 20 08/08/25 12:45 Blood Pressure 116/69 08/08/25 12:45 Pulse Oximetry 100 08/08/25 12:45 Oxygen Delivery Room Air 08/08/25 12:45 reviewed MDM MDM Narrative Medical decision making narrative: Patient sitting in exam room. Patient is nontoxic, vitals stable. Patient presents with 2 day history of left great toe discomfort, swelling. Patient also with concerns for congestion for about a week and has been on antibiotic for 2 days, states that he is not getting any better. Denies any fevers. Patient with significant medical history to include renal insufficiency, diabetes, cardiac issues, on Xarelto. Discussed my concerns, discussed that we are unable to prescribe indomethacin due to Xarelto. Unable to prescribe prednisone due to diabetes and renal insufficiency. Discussed doing a a reduced dose of culture seen due to renal insufficiency. Patient decided to call his primary care provider who called in a steroid pack. Patient is flu A positive. Most likely gout to the great toe due to diet of when he was on the cruise. Patient is appropriate for outpatient treatment with strict signs and symptoms to proceed to the emergency room. Patient reports that he will have an appointment with his primary early next week. Discharge instructions reviewed with patient, as well as provided in writing per nursing staff. The instructions also include specific and strict return/GO TO THE ER as well as f/u information. All questions have been answered, and the patient deny any further questions with discharge and discharge plan. Some parts of this dictation were generated by voice recognition software and may contain typographical and/or grammatical inaccuracies. Differential Diagnosis Differential Diagnosis: Differential diagnostic considerations for upper respiratory infection include upper respiratory infection, croup, otitis media, sinusitis, viral infection, bronchitis, influenza, pharyngitis, strep, uvulitis.? Lab Data Labs: Lab Results 08/08/25 Range/Units 12:52 POC Influenza A Ag Positive (Negative) POC Influenza B Ag Negative (Negative) POC SARS CoV-2 Ag Negative (Negative) Reviewed Discharge Plan Discharge Clinical Impression: Gout, Influenza A Patient Disposition: Home Condition: Stable Instructions: Antibiotic Form, Gout (ED), Influenza (DC) Additional Instructions: Take your medications up as your primary care prescribed Your rapid COVID test were negative Your rapid flu test was positive for influenza A Your symptoms are likely due to a viral illness, which is not treated with antibiotics. Typically viral infections last 7-10 days, can linger for couple of weeks. It is very important to treat your symptoms. Drink plenty of water, Gatorade, Pedialyte, ice pops or Jell-O. -Alternate Tylenol and Motrin per package directions for fever or pain. You can alternate every 4 hours -Antihistamine medication such as Zyrtec/Claritin/Kacy during the day can help improve symptoms. -doing daily nasal irrigations can help relieve pressure your sinuses. Things like a Neti pot -Use Flonase twice a day for 5 days then daily to help reduce the inflammation and dry up your sinuses. -You can also use Mucinex. Be sure to drink plenty of water with this medication at least 8 ounces with every dose and it is important to drink 8 to 10 glasses of water per day. Water is a natural decongestant -Eat and drink things that are easy to swallow, like tea or soup, or popsicles. -Oral rinses such as: Salt water gargles and/or may use topical anesthetic (eg. Chloraseptic spray) or lozenges to relieve dryness or throat pain). -Frequent hand washing or hand apple press operator is one of the best ways to prevent spread of infection. -Using a vaporizer or humidifier at night will also help thin secretions and help with coughing up phlegm. -Follow up with primary care provider in 7-10 days if condition is not improving - For new or worsening symptoms go directly to the nearest ER Patient Language: Togolese Prescriptions: No Action (DME) Dexcom G6 Sensor Device MISCELLANEOUS (DME) Dexcom G6 Lockstitch Shoulder Joiner Misc MISCELLANEOUS (DME) Dexcom G6 Transmitter Device MISCELLANEOUS Tradjenta 5 mg tablet 5 mg PO DAILY Kerendia 20 mg tablet 20 mg PO DAILY Xarelto 2.5 mg tablet 2.5 mg PO DAILY atorvastatin 40 mg tablet 40 mg PO QHS ergocalciferol (vitamin D2) 1,250 mcg (50,000 unit) capsule 1,250 mcg PO WEEKLY ezetimibe [Zetia] 10 mg tablet 10 mg PO DAILY glimepiride 2 mg tablet 2 mg PO QAM Rx Instructions: administer with breakfast lisinopril 5 mg tablet 5 mg PO DAILY pregabalin 50 mg capsule 50 mg PO BID pantoprazole 40 mg tablet,delayed release (DR/EC) 40 mg PO QAM Jardiance 25 mg tablet 25 mg PO DAILY insulin glargine [Lantus U-100 Insulin] 100 unit/mL solution 26 unit subcut BID calcitriol 0.25 mcg capsule See Rx Instructions .ROUTE .COMPLEX Qty: 36 3RF Dose Instruction: TAKE 1 CAPSULE THREE TIMES WEEKLY ON MON, WED AND FRI Rx Instructions: TAKE 1 CAPSULE THREE TIMES WEEKLY ON MON, WED AND FRI Follow-up/Referrals: Kenny,MD Mushtaq [Primary Care Provider, Unknown] - 2 Weeks Clinical Impression: Influenza A; Gout Stand Alone Forms: Work/School Release IP Time of Disposition: 12:53
[2025-08-08 12:45] VITALS: BP 116/69; PULSE 81; RESP 20; TEMP 36.6; O2SAT 100
[2025-08-08 12:54] LABS: EDCOVIDSCREEN Negative (Negative); EDINFLUASCREEN Positive (Negative); EDINFLUBSCREEN Negative (Negative)
== END 2025-08-08 13:20 | disposition home or self-care (01) ==
PROVIDERS: Emergency Provider Nurse Practitioner; PCP Family Medicine
DX: M10.9 Gout, unspecified (principal); J10.1 Influenza due to other identified influenza virus with other respiratory manifestations; Z20.822 Contact with and (suspected) exposure to COVID-19; E11.22 Type 2 diabetes mellitus with diabetic chronic kidney disease; I12.9 Hypertensive chronic kidney disease with stage 1 through stage 4 chronic kidney disease, or unspecified chronic kidney disease; N18.9 Chronic kidney disease, unspecified; Z79.4 Long term (current) use of insulin; Z79.84 Long term (current) use of oral hypoglycemic drugs; N40.0 Benign prostatic hyperplasia without lower urinary tract symptoms; I25.10 Atherosclerotic heart disease of native coronary artery without angina pectoris; E11.42 Type 2 diabetes mellitus with diabetic polyneuropathy; E78.00 Pure hypercholesterolemia, unspecified; E66.9 Obesity, unspecified; Z68.32 Body mass index [BMI] 32.0-32.9, adult; Z95.5 Presence of coronary angioplasty implant and graft; Z87.891 Personal history of nicotine dependence; Z79.01 Long term (current) use of anticoagulants
CPT/HCPCS: 87426; 87804; 99212; G0463